=== PATIENT | female | born 1980 | race Caucasian/White ===

== ENCOUNTER 2020-01-13 08:49 | Emergency (ER) | payer OTHER, SELFPAY ==
[2020-01-13 08:59] VITALS: BP 103/66; PULSE 88; RESP 18; TEMP 37.2; O2SAT 100
--- NOTE | 2020-01-13 09:46 | ED.GENADULT ---
HPI - General Adult General Chief complaint: Unspecified <Jason Rose PA-C - Last Filed: 01/13/20 09:52> Stated complaint: generalized aches, sore throat <Jason Rose PA-C - Last Filed: 01/13/20 09:52> Time Seen by Provider: 01/13/20 09:09 <Jason Rose PA-C - Last Filed: 01/13/20 09:52> Source: patient <Jason Rose PA-C - Last Filed: 01/13/20 09:52> Mode of arrival: ambulatory <Jason Rose PA-C - Last Filed: 01/13/20 09:52> Limitations: no limitations <Jason Rose PA-C - Last Filed: 01/13/20 09:52> History of Present Illness HPI narrative: Patient is a 39-year-old female who presents to emergency department for evaluation of body aches sore throat rhinorrhea and congestion that began in the last 2 days 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 patient denies any vomiting diarrhea urinary symptoms or other complaints has not taken anything for her symptoms and presents in no distress <Jason Rose PA-C - Last Filed: 01/13/20 09:52> Related Data Home medications: Home Medications Medication Instructions Recorded Confirmed Daily Multivitamin 1 PO 10/29/19 <Jason Rose PA-C - Last Filed: 01/13/20 09:52> Allergies/adverse reactions: Allergies Allergy/AdvReac Type Severity Reaction Status Date / Time Penicillins Allergy Intermediate Rash Verified 01/13/20 09:06 <Jason Rose PA-C - Last Filed: 01/13/20 09:52> Review of Systems Review of Systems: All systems reviewed & are unremarkable except as noted in HPI and below <Jason Rose PA-C - Last Filed: 01/13/20 09:52> [facility] Surgical History Surgical History: Surgical History (Updated 01/13/20 @ 09:47 by Jason Rose PA-C) H/O hernia repair <LYUBOV Villa Last Filed: 01/13/20 09:52> Social History Social History: Social History Smoking status: Former smoker Second hand tobacco smoke exposure: No Smoking end date: 11/19/11 Alcohol intake: current <LYUBOV Villa Last Filed: 01/13/20 09:52> Exam Narrative: Exam Narrative: GENERAL: Well-appearing, well-nourished, and in no acute distress. HEAD: Normocephalic, atraumatic. EYES: PERRLA and EOMI. ENT: Nares clear, no rhinorrhea or epistaxis. Mucous membranes moist. Oropharynx with erythema and without tonsillar hypertrophy exudate or other lesions. Bilateral TMs pearly zelaya nonbulging NECK: Supple. No adenopathy or masses. CHEST: Clear to auscultation. No respiratory distress. No wheezes rales or rhonchi HEART: Regular rate and rhythm. No murmur heard. Normal peripheral pulses. ABDOMEN: Soft, nontender, nondistended EXTREMITIES: Normal range of motion. No edema. SKIN: Warm, dry, no rash. NEURO: No focal deficits. Alert and oriented x3. Cranial nerves II through XII grossly intact PSYCH: Normal mood and affect. <LYUBOV Villa Last Filed: 01/13/20 09:52> Course Course Emergency Course: Patient in the room in no distress aware of case findings treatment plan and diagnosis <LYUBOV Villa Last Filed: 01/13/20 09:52> Vital Signs Vital signs: Vital Signs Temperature 37.2 C 01/13/20 08:59 Pulse Rate 88 01/13/20 08:59 Respiratory Rate 18 01/13/20 08:59 Blood Pressure 103/66 01/13/20 08:59 Pulse Oximetry 100 01/13/20 08:59 Temperature 37.2 C 01/13/20 08:59 Pulse Rate 88 01/13/20 08:59 Respiratory Rate 18 01/13/20 08:59 Blood Pressure 103/66 01/13/20 08:59 Pulse Oximetry 100 01/13/20 08:59 <LYUBOV Villa Last Filed: 01/13/20 09:52> Vital Signs Temperature 37.2 C 01/13/20 08:59 Pulse Rate 88 01/13/20 08:59 Respiratory Rate 18 01/13/20 08:59 Blood Pressure 103/66 01/13/20 08:59 Pulse Oximetry 100 01/13/20 08:59 Temperature 37.2 C 01/13/20 08:59 Pulse Rate 88 12/21
[2020-01-13] MEDS: ACETAMINOPHEN 500 MG TABLET 1000 MG PO (10:10)
[2020-01-13] MEDS: IBUPROFEN 600 MG TABLET PO (10:11)
== END 2020-01-13 10:13 | disposition home or self-care (01) ==
PROVIDERS: Emergency Provider Emergency Medicine; PCP Emergency Medicine
DX: B34.9 Viral infection, unspecified (principal); Z87.891 Personal history of nicotine dependence
CPT/HCPCS: 87081; 87804; 87880; 99283; A9270

== ENCOUNTER 2020-02-27 16:46 | Emergency (ER) | payer OTHER, SELFPAY ==
--- NOTE | ~2020-02-27 | CT_ITS ---
EXAMINATION: CT abdomen pelvis w con DATE: 02/27/2020 19:31 INDICATION: Lower abdominal pain TECHNIQUE: Computed tomography (CT) of the abdomen and pelvis was performed with 100 cc Omnipaque 350 intravenous contrast. The dose-length product was 268.68 mGy-cm. Automated exposure control and iter ative reconstruction technique were employed. COMPARISON: None. FINDINGS: Lung bases are unremarkable. Heart size normal. No significant vascular abnormality. No lym phadenopathy. There are 2 hypovascular masses of the right hepatic lobe, superiormost measuring 7 mm in the larger located anteriorly and laterally measuring 1.6 cm. These are not compatible with simple cyst. The spleen, pancreas, adrenal glands and kidneys are unremarkable. Gallbladder is present. There is g astric wall prominence, although this may relate to underdistention. Nonobstructive bowel gas pattern . There is an IUD in the uterus. Moderate free fluid in the pelvis. No free intraperitoneal air. No s ignificant vascular abnormality. No lymphadenopathy. No acute osseous abnormality. IMPRESSION: 1. Gastric wall thickening which may be due to underdistention, although gastritis is considered in t he appropriate clinical setting. 2: Moderate free fluid in the pelvis, likely physiologic. No loculated abscess. 3: Hypovascular masses of the liver, largest measuring 1.6 cm, most likely benign complicated cyst or hemangioma in the absence of known malignancy. Consider follow-up correlation with MRI or a 6 month follow-up CT. Reviewed, dictated and finalized at location A. IMPRESSION: 1. Gastric wall thickening which may be due to underdistention, although gastri tis is considered in the appropriate clinical setting. 2: Moderate free fluid in the pelvis, likely physiologic. No loculated abscess . 3: Hypovascular masses of the liver, largest measuring 1.6 cm, most likely joy gn complicated cyst or hemangioma in the absence of known malignancy. Consider follow-up correlation with MRI or a 6 month follow-up CT.
--- NOTE | ~2020-02-27 | US_ITS ---
US right upper quadrant INDICATION: Abdominal pain PROCEDURE: Realtime right upper abdominal ultrasound. COMPARISON: No prior studies for comparison. FINDINGS: The pancreas is normal without focal mass or pancreatic ductal dilation. There is a hypere choic mass of the liver near the dome measuring 1.6 x 1.5 x 1.2 cm. There is normal directional flow in the portal vein. The gallbladder is normal without stones, gallbladder wall thickening or pericholecystic fluid. Comm on bile duct measures 4 mm. No sonographic Mace's sign. IMPRESSION: 1: 1.6 cm hyperechoic mass of the liver near the dome. In the absence of known malignancy this likely represents benign focal fatty infiltration or hemangioma. Recommend follow-up ultrasound in 6-12 mon ths to assess stability. Reviewed, dictated and finalized at location A. IMPRESSION: 1: 1.6 cm hyperechoic mass of the liver near the dome. In the absence of known malignancy this likely represents benign focal fatty infiltration or hemangioma . Recommend follow-up ultrasound in 6-12 months to assess stability.
--- NOTE | ~2020-02-27 | XR_ITS ---
XR thoracic spine 3V 02/27/2020 20:56 Indication: Back pain Procedure: 3 views thoracic spine Comparison: No prior studies for comparison. Findings: Mild levoscoliosis. Vertebral body heights are maintained. No paraspinal soft tissue abnorm ality. Surrounding osseous structures are within normal limits. No acute fracture or traumatic malali gnment. Pedicles intact. Impression: 1: Mild levoscoliosis. Reviewed, dictated and finalized at location A. Impression: 1: Mild levoscoliosis.
--- NOTE | ~2020-02-27 | XR_ITS ---
EXAMINATION: XR chest 1V 02/27/2020 20:56 INDICATION: Upper back pain PROCEDURE: AP view of the chest COMPARISON: 12/28/2018 FINDINGS: The lungs are clear. The cardiomediastinal silhouette is within normal limits. There are no pleural effusions. There is no pneumothorax suspected. IMPRESSION: 1: NO ACUTE CARDIOPULMONARY DISEASE. Reviewed, dictated and finalized at location A.
[2020-02-27 16:47] VITALS: BP 115/66; PULSE 60; RESP 20; O2SAT 100
--- NOTE | 2020-02-27 17:14 | ECG_ITS ---
Measurements Intervals Peterson Rate: 53 P: -3 CA: 131 QRS: 5 QRSD: 101 T: 62 QT: 431 QTc: 406 Interpretive Statements SINUS BRADYCARDIA RSR' IN V1 OR V2, CONSIDER RIGHT VENTRICULAR HYPERTROPHY OR RIGHT VCD LOW QRS VOLTAGE IN LIMB LEADS BASELINE WANDER- V4 BORDERLINE ECG Electronically Signed On 02-28-2020 7:44:38 CDT by Ras Rojas D.O.
--- NOTE | 2020-02-27 17:24 | ED.ABDPAIN ---
HPI - Abdominal Pain General Chief Complaint: Abdominal Pain Stated Complaint: abdominal pain Time Seen by Provider: 02/27/20 16:54 Source: patient Mode of arrival: ambulatory Limitations: no limitations History of Present Illness HPI narrative: 39 yo female who presents with c/o constant abdominal pain since midnight last night. She states she develop sharp pain to her upper abdomen and she reports her pain has been constant. She reports she now has diffuse abdominal pain. She is concerned it may be her gallbladder because she noticed intermittent pain to right upper abdomen 2 weeks ago. She states this pain was not associated with eating. She also denies nausea, vomiting, fever or diarrhea. She reports she had normal BM with out relief of her pain. She denies sob. Her PCP prescribed her omeprazole so she took it without relief of her pain. MD elicited complaint: abdominal pain Related Data Home Medications Medication Instructions Recorded Confirmed Daily Multivitamin 1 PO 10/29/19 Allergies Allergy/AdvReac Type Severity Reaction Status Date / Time Penicillins Allergy Intermediate Rash Verified 01/13/20 09:06 Review of Systems Review of Systems: All systems reviewed & are unremarkable except as noted in HPI and below Constitutional: Constitutional: Denies chills, Denies fever(s) and Denies weakness Cardiovascular: Cardiovascular: Denies chest pain Respiratory: Respiratory: Denies cough and Denies dyspnea Gastrointestinal: Gastrointestinal: Reports abdominal pain, Denies bloating, Denies constipation, Denies diarrhea, Denies nausea and Denies vomiting Musculoskeletal: Musculoskeletal: Reports back pain PMFSH Surgical History Surgical History (Updated 01/13/20 @ 09:47 by Jason Rose PA-C) H/O hernia repair Social History Social History Smoking status: Former smoker Second hand tobacco smoke exposure: No Smoking end date: 11/19/11 Alcohol intake: current Exam Narrative: Exam Narrative: GENERAL: Well-appearing, well-nourished, and in no acute distress. HEAD: Normocephalic, atraumatic EYES: PERRLA and EOMI, conjunctiva clear without discharge THROAT:Mucous membranes moist, Oropharynx normal without erythema, exudate, peritonsillar swelling or fluctuance NECK: Supple, without lymphadenopathy or mass RESPIRATORY: No respiratory distress, Airway patent, Respirations non-labored, Clear to auscultation without rales, rhonchi or wheeze HEART: Regular rate and rhythm. No murmur heard. Normal peripheral pulses. ABDOMEN: Soft, Diffuse tenderness , nondistended, normal active bowel sounds. No masses. No rebound or guarding, No organomegaly. EXTREMITIES: No edema, normal strength with full range of motion. SKIN: Warm, dry, normal color without rash NEURO: Alert and oriented x3. CN 2-12 grossly intact. No focal deficits. PSYCH: Normal mood and affect. Course Reevaluation(s) Reevaluation #1: Patient states pain is still the same. I have discussed labs are unremarkable. I Also discussed ultrasound showing normal gallbladder but liver mass that is likely benign. Date: 02/27/20 Time: 19:15 Reevaluation #2: I discussed with patient CT scan showing FF in pelvic that is physiologic which may be due to ruptured cyst. She has no anemia to suggest hemorrhage in peritoneum. Date: 02/27/20 Time: 20:19 Reevaluation #3: I Reviewed xray findings with patient as she asked for thoracic xray and chest xray due to mild pain thoracic pain for weeks just cover basis while her. Date: 02/27/20 Time: 21:18 Vital Signs Vital signs: Vital Signs Pulse Rate 60 02/27/20 16:47 Respiratory Rate 20 02/27/20 16:47 Blood Pressure 115/66 02/27/20 16:47 Pulse Oximetry 100 02/27/20 16:47 Pulse Rate 63 02/27/20 21:42 Respiratory Rate 18 02/27/20 21:42 Blood Pressure 115/73 02/27/20 21:42 Pulse Oximetry 100 02/27/20 21:42
[2020-02-27 17:34] LABS: Basophils Percent Auto 0.6 % (0.2-1.2); Eosinophils Absolute Auto 0.1 K/mm3 (0-0.3); Eosinophils Percent Auto 2.2 % (0-4.4); Hematocrit 42.6 % (37.0-47.0); Hemoglobin 14.4 g/dL (12.0-15.0); Immature Granulocyte Absolute 0.01 K/mm3 (0.00-0.031); Immature Granulocyte Percent A 0.2 % (0-0.5); Lymphocytes Absolute Auto 1.16 K/mm3 (0.9-3.2); Lymphocytes Percent Auto 18.3 % (18.3-44.2); Mean Corpuscular HGB Conc 33.8 g/dl (32-36); Mean Corpuscular Hemoglobin 31.5 pg (26-34); Mean Corpuscular Volume 93.2 fl (80-100); Monocytes Absolute Auto 0.5 K/mm3 (0.1-0.6); Monocytes Percent Auto 7.7 % (2.6-8.5); Neutrophils Absolute Auto 4.5 K/mm3 (1.3-6.7); Platelet Count Result 221 k/mm3 (150-375); Red Blood Count 4.57 M/mm3 (4.2-5.4); Red Cell Distribution Width 12.2 % (11.5-14.5); White Blood Count 6.4 K/mm3 (4.5-10.0)
[2020-02-27] MEDS: KETOROLAC 30 MG/ML VIAL (*BKC) IV PUSH (17:35)
[2020-02-27 17:37] LABS: Add Urine Microscopic? YES; Appearance Urine Clear (Clear); Bilirubin Urine Negative (Negative); Blood Urine 1+ (Negative); Color Urine Straw (Yellow); Glucose Urine UA Negative (Negative); Ketones Urine Negative (Negative); Leukocyte Esterase Ur Negative LEU/UL (Negative); Mucus Urine Rare /lpf; Nitrate Urine Negative (Negative); Protein Urine Negative (Negative); RBC Urine 0-2 /hpf (0-2); Specific Grav Ur 1.006 (1.001-1.035); Squamous Epithelial Cell Urine Rare /hpf (Few); Urobilinogen Urine Negative mg/dL (<2.0); WBC Urine 0-3 /hpf
[2020-02-27 17:49] LABS: Alanine Aminotransferase 14 U/L (4-35); Albumin Level 4.4 g/dL (3.5-5.1); Alkaline Phosphatase 66 U/L (38-126); Aspartate Amino Transferase 28 U/L (14-36); Bilirubin,Total 0.5 mg/dL (0.2-1.3); Blood Urea Nitrogen 8 mg/dL (7-17); Calcium 9.3 mg/dL (8.4-10.2); Carbon Dioxide 29 mmol/L (22-30); Chloride 104 mmol/L (98-107); Estimated CRCL calculation 93 ml/min; Estimated Glomerular Filt Rate > 60; Glucose 90 mg/dL (65-105); Lipase 58 U/L (23-300); Potassium 5.2 mmol/L (3.4-5.0); Sodium 138 mmol/L (137-145)
[2020-02-27] MEDS: HYDROMORPHONE HCL 1 MG/ML INJ IV PUSH (19:37)
[2020-02-27 19:57] VITALS: BP 103/64; PULSE 52; RESP 15; O2SAT 98
[2020-02-27 21:42] VITALS: BP 115/73; PULSE 63; RESP 18; O2SAT 100
== END 2020-02-27 21:43 | disposition home or self-care (01) ==
PROVIDERS: Emergency Provider General Practice; PCP Emergency Medicine
DX: R10.84 Generalized abdominal pain (principal); R18.8 Other ascites; Z87.891 Personal history of nicotine dependence; R00.1 Bradycardia, unspecified; R94.31 Abnormal electrocardiogram [ECG] [EKG]; R16.0 Hepatomegaly, not elsewhere classified; R93.5 Abnormal findings on diagnostic imaging of other abdominal regions, including retroperitoneum
CPT/HCPCS: 36415; 71045; 72072; 74177; 76705; 80053; 81001; 81025; 83690; 85025; 93005; 96374; 96375; 99284; J1170; J1885; Q9967

== ENCOUNTER 2020-03-05 08:50 | Outpatient (CLI) | payer OTHER, SELFPAY ==
--- NOTE | ~2020-03-05 | XR_ITS ---
EXAMINATION: XR chest 2V DATE: 03/05/2020 09:37 INDICATION: Upper middle back pain. TECHNIQUE: Frontal and lateral views of the chest were obtained. COMPARISON: Chest single view 02/27/2020, CT abdomen and pelvis 02/27/2020 FINDINGS: The chest demonstrates clear lungs without pneumonia, pleural effusion, or pneumothorax. Th e heart size is normal. IMPRESSION: 1. No acute cardiopulmonary disease. Reviewed, dictated and finalized at location A.
--- NOTE | ~2020-03-05 | XR_ITS ---
EXAMINATION: XR UGIAC wo kub DATE: 03/05/2020 09:36 INDICATION: Abdominal pain. Upper back pain. TECHNIQUE: The patient drank thick barium, gas-producing crystals, and thin barium. Fluoroscopy of th e esophagus, stomach, and proximal small bowel was performed. Fluoroscopy exposure time was 0.7 minut es. The total number of images was 275. Total dose-area product was 1.126 Gy-cm^2. COMPARISON: None. FINDINGS: There is no mass or stricture of the esophagus. Esophageal motility is normal. There is no hiatal hernia. There was no gastroesophageal reflux with provocative maneuvers. The stomach and proxi mal small bowel show normal folding patterns. IMPRESSION: 1. Normal upper gastrointestinal series. Reviewed, dictated and finalized at location A.
== END 2020-03-05 08:51 | disposition home or self-care (01) ==
LOC: ANHIMG 08:54
PROVIDERS: PCP Emergency Medicine; Visit Provider Emergency Medicine
DX: R10.9 Unspecified abdominal pain (principal)
CPT/HCPCS: 71046; 74246

== ENCOUNTER 2020-04-13 08:19 | Outpatient (CLI) | payer OTHER, SELFPAY ==
--- NOTE | ~2020-04-13 | NM_ITS ---
EXAMINATION: NM hepatobiliary w pharm DATE: 04/13/2020 11:34 INDICATION: Abdominal pain. COMPARISON: CT abdomen and pelvis 02/27/2020 TECHNIQUE: 5.1 mCi Tc-99m mebrofenin (Choletec) was administered intravenously. Scintigraphic images of the abdomen were obtained for one hour. Then, 1.3 mcg sincalide (Kinevac) IV was administered, an d imaging was continued for 30 minutes. FINDINGS: There is normal clearance of radiotracer from the blood pool. There is homogeneous tracer u ptake by the liver. Activity progresses to the bowel and gallbladder. Gallbladder ejection fraction (GBEF) was 72%. Note that most patients with gallbladder dysfunction have GBEF < 35%, which overlaps with the broad normal range of 10-90%. IMPRESSION: 1. Normal hepatobiliary scintigraphy. Reviewed, dictated and finalized at location A.
[2020-04-16 01:35] LABS: NIL 0.01 IU/mL; Quantiferon TB Plus, 1T NEGATIVE (NEGATIVE)
== END 2020-04-13 08:20 | disposition home or self-care (01) ==
PROVIDERS: PCP Emergency Medicine; Visit Provider Emergency Medicine
DX: R10.9 Unspecified abdominal pain (principal)
CPT/HCPCS: 36415; 78227; 86480; A9537; J2805

== ENCOUNTER 2020-11-24 19:48 | Emergency (ER) | payer OTHER, SELFPAY ==
--- NOTE | 2020-11-24 19:51 | ED.FEMALEGU ---
HPI - Female Genitourinary General Chief complaint: Urogenital-Female Stated complaint: uti Time Seen by Provider: 11/24/20 19:51 Source: patient and RN notes reviewed History of Present Illness HPI Narrative: Patient is a 40-year-old female who presents the urgent care with complaints of suprapubic pressure, urgency, frequency, slight blood in the urine, and dysuria. Patient states that it started 3 days ago, seemed to improve, and worsened this evening approximately 2 hours ago. Patient denies of any frequent history of UTIs. States that she has taken 1 dose of at 100 mg doxycycline which she typically takes for her rosacea. Denies of any low back pain, nausea, vomiting, fever, abdominal pain. No other acute complaints. No acute distress noted. Patient aware of the plan of care. Some parts of this dictation were generated by voice recognition software and may contain typographical and/or grammatical inaccuracies. Related Data Home Medications Medication Instructions Recorded Confirmed Daily Multivitamin 1 PO 10/29/19 Allergies Allergy/AdvReac Type Severity Reaction Status Date / Time Penicillins Allergy Intermediate Rash Verified 01/13/20 09:06 Review of Systems Review of Systems: Narrative: CONSTITUTIONAL: Denies fever, chills, or sweats. EYES: Denies visual changes, redness, or discharge. ENT: Denies rhinorrhea, congestion, sore throat, or otalgia. CARDIOVASCULAR: Denies chest pain, palpitations, or edema. RESPIRATORY: Denies cough or dyspnea. GASTROINTESTINAL: Reports a suprapubic pressure. denies abdominal pain, nausea, vomiting, or diarrhea. GENITOURINARY: Reports of dysuria and mild blood when wiping SKIN: Denies rash or itching. MUSCULOSKELETAL: Denies back pain, joint pain, or myalgia. NEUROLOGIC: Denies headache, numbness, or weakness. All other systems reviewed are negative, except as documented in HPI. [facility] Surgical History Surgical History (Updated 01/13/20 @ 09:47 by Jason Rose PA-C) H/O hernia repair Family History Family History Father Family history of lung cancer Social History Social History Smoking status: Former smoker Second hand tobacco smoke exposure: No Smoking end date: 11/19/11 Alcohol intake: current Comments At the time of my signature, I reviewed and agree with the nursing past medical, surgical, social, and family history. There is no relevant family history pertinent to the patient complaint. Exam Narrative: Exam Narrative: GENERAL: This is a well-nourished, well-developed patient, in no apparent distress. HEAD: normocephalic, atraumatic. EYES: PERRL. Sclera clear/white. Vision is grossly intact. EARS: External ears normal NOSE: External nose normal with no obvious nasal discharge, nares without redness, no rhinorrhea. THROAT: Mucous membranes moist NECK: Neck supple GASTROINTESTINAL: Abdomen soft, non-tender, nondistended. Bowel sounds are active. Very mild suprapubic tenderness SKIN: warm, intact with no suspicious lesions or rash, good texture and turgor. NEURO: awake, alert, and oriented to person, place and time. There were no obvious focal neurologic abnormalities. EXTREMITIES: No clubbing, cyanosis, or edema. BACK: Negative CVA tenderness Course Vital Signs Vital signs: Vital Signs Temperature 99.7 F H 11/24/20 19:57 Pulse Rate 78 11/24/20 19:57 Respiratory Rate 18 11/24/20 19:57 Blood Pressure 103/72 11/24/20 19:57 Pulse Oximetry 100 11/24/20 19:57 Temperature 99.7 F H 11/24/20 19:57 Pulse Rate 78 11/24/20 19:57 Respiratory Rate 18 11/24/20 19:57 Blood Pressure 103/72 11/24/20 19:57 Pulse Oximetry 100 11/24/20 19:57 Reviewed-patient is informed that they may have pre-hypertension or hypertension based on a blood pressure reading in the department. I recommend the patient call the primary care
[2020-11-24 19:57] VITALS: BP 103/72; PULSE 78; RESP 18; TEMP 37.6; O2SAT 100
== END 2020-11-24 20:13 | disposition home or self-care (01) ==
PROVIDERS: Emergency Provider Nurse Practitioner Family; PCP Emergency Medicine
DX: N39.0 Urinary tract infection, site not specified (principal); Z87.891 Personal history of nicotine dependence
CPT/HCPCS: 81003; 87077; 87086; 87088; 87186; 99213; G0463

== ENCOUNTER 2021-04-07 18:51 | Emergency (ER) | payer OTHER, SELFPAY ==
[2021-04-07 18:56] VITALS: BP 108/66; PULSE 74; RESP 15; TEMP 36.7; O2SAT 100
--- NOTE | 2021-04-07 19:46 | ED.GENADULT ---
HPI - General Adult General Chief complaint: Unspecified Stated complaint: Sore Throat Time Seen by Provider: 04/07/21 19:44 Source: patient Mode of arrival: ambulatory Limitations: no limitations History of Present Illness HPI narrative: Patient is a 40-year-old female complaining of sore throat x2 days. Patient states that it hurts to swallow. Patient denies any cough, nasal congestion, fever or chills. Denies any neck swelling. Denies any chest pain or shortness of breath. Related Data Home Medications Medication Instructions Recorded Confirmed doxycycline monohydrate 04/07/21 Allergies Allergy/AdvReac Type Severity Reaction Status Date / Time Penicillins Allergy Intermediate Rash Verified 01/13/20 09:06 Review of Systems Review of Systems: All systems reviewed & are unremarkable except as noted in HPI and below PMFSH Surgical History Surgical History H/O hernia repair Family History Family History Father Family history of lung cancer Social History Social History Smoking status: Former smoker Second hand tobacco smoke exposure: No Smoking end date: 11/19/11 Alcohol intake: current Gender identity (if verbalized by the patient): Female Comments Past medical history: None Family history: Lung CA Social history: Non-smoker, occasional EtOH use, no drug use Exam Const: General: cooperative, healthy appearing, comfortable, no acute distress, well developed, alert, awake and Physically active Limitations: no limitations HENMT: Head: normal to inspection, normocephalic and atraumatic Ears: hearing grossly normal bilaterally and external ears normal General nose exam: Normal external nose present, Normal nares present, Normal nasal mucous membranes and turbinates present, No nasal discharge present, no nasal discharge noted and no epistaxis Mouth: Yes Normal oral and palatal mucosa present and Yes lip normal Teeth and gingiva: dentition normal and gingiva normal Throat: no peritonsillar masses Other: Erythematous tonsillar and peritonsillar area, negative for exudates, negative for any significant swelling Course Vital Signs Vital signs: Vital Signs Temperature 36.7 C 04/07/21 18:56 Pulse Rate 74 04/07/21 18:56 Respiratory Rate 15 04/07/21 18:56 Blood Pressure 108/66 04/07/21 18:56 Pulse Oximetry 100 04/07/21 18:56 Temperature 36.7 C 04/07/21 18:56 Pulse Rate 74 04/07/21 18:56 Respiratory Rate 15 04/07/21 18:56 Blood Pressure 108/66 04/07/21 18:56 Pulse Oximetry 100 04/07/21 18:56 Medical Decision Making Vital Signs Vital Signs: Vital Signs Temperature 36.7 C 04/07/21 18:56 Pulse Rate 74 04/07/21 18:56 Respiratory Rate 15 04/07/21 18:56 Blood Pressure 108/66 04/07/21 18:56 Pulse Oximetry 100 04/07/21 18:56 Temperature 36.7 C 04/07/21 18:56 Pulse Rate 74 04/07/21 18:56 Respiratory Rate 15 04/07/21 18:56 Blood Pressure 108/66 04/07/21 18:56 Pulse Oximetry 100 04/07/21 18:56 Lab Data Lab results reviewed: Yes I reviewed the patient's lab results. Labs: Strep Screen Presumptive Negative *(Reference Range: Negative)* Discharge Plan Discharge Clinical Impression: Acute pharyngitis Qualifiers: Pharyngitis/tonsillitis etiology: other specified organisms Qualified Code(s): J02.8 - Acute pharyngitis due to other specified organisms Patient Disposition: Home, Self-Care Condition: Stable Instructions: Pharyngitis (ED) Prescriptions: No Action doxycycline monohydrate 100 mg tablet RF: 0 Follow-up/Referrals: Mesfin Lora MD [Primary Care Provider] - 04/11/21 Time of Disposition: 20:19
== END 2021-04-07 20:43 | disposition home or self-care (01) ==
PROVIDERS: Emergency Provider Emergency Medicine; PCP Emergency Medicine
DX: J02.8 Acute pharyngitis due to other specified organisms (principal); Z87.891 Personal history of nicotine dependence
CPT/HCPCS: 87081; 87880; 96372; 99283; J1100

== ENCOUNTER 2021-04-08 20:11 | Emergency (ER) | payer OTHER, SELFPAY ==
--- NOTE | ~2021-04-08 | CT_ITS ---
EXAMINATION: CT soft tissue neck w con DATE: 04/08/2021 22:40 INDICATION: Sore throat, possible tonsillar abscess TECHNIQUE: Computed tomography (CT) of the neck was performed with 75 cc of Omnipaque 350 intravenous contrast. The dose-length product (DLP) was 415.99 mGy-cm. Automated exposure control and iterative reconstruction technique were employed. COMPARISON: None FINDINGS: There is an approximately 1.7 x 1.3 cm x 2.7 cm right peritonsillar abscess. There is mild mass effect on the airway which remains patent. No pathologically enlarged cervical lymph nodes are i dentified. The visualized osseous structures are unremarkable. IMPRESSION: 1. 2.7 x 1.3 x 1.7 cm right peritonsillar abscess with mild mass effect on the airway. Reviewed, dictated and finalized at location A.
[2021-04-08 20:34] VITALS: BP 101/50; PULSE 76; RESP 18; TEMP 36.6; O2SAT 100
--- NOTE | 2021-04-08 21:48 | ED.URI ---
HPI - URI/Sore Throat General Chief Complaint: Upper Respiratory Infection Stated Complaint: pharyngitis Time Seen by Provider: 04/08/21 21:29 History of Present Illness HPI Narrative: SOre throat for the past 4 days. Seen here 2 days ago. Tested negative for strep. Got steroid shot. Improved that day, but now pain is worse and she some difficulty swallowing. No fever. She was previously on doxycycline for an unrelated cause. Related Data Home Medications Medication Instructions Recorded Confirmed doxycycline monohydrate 04/07/21 Allergies Allergy/AdvReac Type Severity Reaction Status Date / Time Penicillins Allergy Intermediate Rash Verified 01/13/20 09:06 Review of Systems Review of Systems: All systems reviewed & are unremarkable except as noted in HPI and below Constitutional: Constitutional: Denies fever(s) Eyes: Eyes: Reports no additional eye complaints ENT: Reports as per HPI, Denies dizziness and Reports sore throat Cardiovascular: Cardiovascular: Denies chest pain Respiratory: Respiratory: Denies dyspnea Gastrointestinal: Gastrointestinal: Denies abdominal pain, Denies nausea and Denies vomiting Musculoskeletal: Musculoskeletal: Denies back pain Neurologic: Reports system reviewed and no additional complaints, except as documented [facility] Past Medical History Medical History (Updated 04/09/21 @ 01:27 by Toñito Valerio MD) Hypothyroidism Surgical History Surgical History H/O hernia repair Family History Family History Father Family history of lung cancer Social History Social History Smoking status: Former smoker Second hand tobacco smoke exposure: No Smoking end date: 11/19/11 Alcohol intake: current Gender identity (if verbalized by the patient): Female Exam Const: General: healthy appearing, no acute distress and alert Orientation/consciousness: patient oriented x3 HENMT: Teeth and gingiva: dentition normal Throat: peritonsillar mass on the right fluctuant, posterior oropharynx abnormal edema and erythema; no exudates and uvula laterally displaced to the right Neck: Neck: lymphadenopathy Chest: Chest palpation & inspection: no tenderness Resp: Effort & Inspection: normal respiratory effort Auscultation: clear to auscultation bilaterally, no rales, no rhonchi and no wheezes Cardio: Jugular venous distension: no JVD Rate: regular rate Rhythm: regular rhythm Heart sounds: no murmurs Skin: General skin exam: normal color Neuro: General: patient oriented x3 and moves all extremities Speech: normal speech Gait exam (Neuro): Normal gait present Psych: Appearance: well kempt Affect: normal affect Course Vital Signs Vital signs: Vital Signs Temperature 36.6 C 04/08/21 20:34 Pulse Rate 76 04/08/21 20:34 Respiratory Rate 18 04/08/21 20:34 Blood Pressure 101/50 L 04/08/21 20:34 Pulse Oximetry 100 04/08/21 20:34 Temperature 36.6 C 04/08/21 20:34 Pulse Rate 69 04/09/21 00:59 Respiratory Rate 18 04/09/21 00:59 Blood Pressure 108/53 L 04/09/21 00:59 Pulse Oximetry 99 04/09/21 00:59 Procedures Abscess I/D oral: Side (if applicable): right Local Anesthetic: lidocaine 1% and other anesthetic (hurrican spray) Amount of anesthesia used (mL): 2 Technique: needle aspiration Amount of fluid expressed (mL): 2 Irrigation: No Packing used?: none I&D Results: Pus MDM - URI/Sore Throat MDM Narrative Medical decision making narrative: ENRICHMENT DIRECTOR on exam. Confirmed by CT drained without complication. Differential Diagnosis Differential diagnosis: Likely other Medical Records Attestation: I reviewed the patient's medical records. Lab Data Attestation: I reviewed the patient's lab results. Result diagrams: 03/20
[2021-04-08] MEDS: CLINDAMYCIN 600 MG/D5W 50 ML 600 MG/50 ML PIGGYBACK 100 MG IVPB (22:14)
[2021-04-08 22:23] LABS: Anion Gap 6 mmol/L (8-16); Blood Urea Nitrogen 12 mg/dL (7-17); Calcium 9.3 mg/dL (8.4-10.2); Carbon Dioxide 27 mmol/L (22-30); Chloride 101 mmol/L (98-107); Estimated CRCL calculation 92 ml/min; Estimated Glomerular Filt Rate > 60; Glucose 131 mg/dL (65-105); Potassium 4.5 mmol/L (3.4-5.0); Sodium 134 mmol/L (137-145)
[2021-04-08 23:59] LABS: Basophils Percent Auto 0.2 % (0.2-1.2); Eosinophils Absolute Auto 0.1 K/mm3 (0-0.3); Eosinophils Percent Auto 0.9 % (0-4.4); Hematocrit 36.7 % (37.0-47.0); Hemoglobin 12.1 g/dL (12.0-15.0); Immature Granulocyte Absolute 0.03 K/mm3 (0.00-0.031); Immature Granulocyte Percent A 0.3 % (0-0.5); Lymphocytes Absolute Auto 1.46 K/mm3 (0.9-3.2); Mean Corpuscular Hemoglobin 31.2 pg (26-34); Mean Corpuscular Volume 94.6 fl (80-100); Monocytes Absolute Auto 1.1 K/mm3 (0.1-0.6); Monocytes Percent Auto 9.9 % (2.6-8.5); Neutrophils Absolute Auto 8.5 K/mm3 (1.3-6.7); Neutrophils Percent Auto 75.7 % (45.5-73.1); Platelet Count Result 200 k/mm3 (150-375); Red Blood Count 3.88 M/mm3 (4.2-5.4); Red Cell Distribution Width 12.1 % (11.5-14.5); White Blood Count 11.3 K/mm3 (4.5-10.0)
[2021-04-09] MEDS: BENZOCAINE/TETRACAINE SPRAY (*SP) 56 ML AEROSOL 1 SPRAY MUCOUS MEM (00:31)
[2021-04-09] MEDS: LIDO 1%/EPINEPHRINE 1:100,000 20 ML VIAL INFILTRATE (00:34)
[2021-04-09 00:59] VITALS: BP 108/53; PULSE 69; RESP 18; O2SAT 99
== END 2021-04-09 01:01 | disposition home or self-care (01) ==
PROVIDERS: Emergency Provider Emergency Medicine; PCP Emergency Medicine
DX: J36 Peritonsillar abscess (principal); Z87.891 Personal history of nicotine dependence
CPT/HCPCS: 36415; 42700; 70491; 80048; 81025; 85025; 96365; 99284; A9270; Q9967

== ENCOUNTER 2021-04-09 08:55 | Emergency (ER) | payer OTHER, SELFPAY ==
[2021-04-09] VITALS (7 sets, daily range): BP systolic 95–109; BP diastolic 55–69; PULSE 55–86; RESP 16–20; TEMP 36.3; O2SAT 99–100
--- NOTE | ~2021-04-09 | CT_ITS ---
EXAMINATION: CT soft tissue neck w con DATE: 04/09/2021 12:15 INDICATION: Swelling in the throat TECHNIQUE: Computed tomography (CT) of the neck was performed with 75 mL Omnipaque-350 intravenous co ntrast. Automated exposure control and iterative reconstruction technique were employed. The dose-lindsay gth product was 379.06 mGy-cm. COMPARISON: 04/08/2021 FINDINGS: No significant interval change in a peripherally enhancing abscess within the right pharyngeal tonsil which measures 2.4 cm craniocaudally and 1.4 x 1.1 cm in maximal transaxial dimensions. Again seen i s mild mass effect upon the pharyngeal airway without significant stenosis. Normal epiglottis. The vi sualized portions of the bilateral upper lobes are clear. There are bilateral mildly prominent jugula r chain lymph nodes which are likely reactive. The cervical vasculature appears patent and unremarkab le. Orbits, paranasal sinuses and mastoid air cells are normal. Bones are unremarkable. IMPRESSION: 1. No significant interval change in a 2.4 x 1.4 x 1.1 cm right pharyngeal tonsillar abscess with mil d mass effect on the pharyngeal airway. Reviewed, dictated and finalized at location A. IMPRESSION: 1. No significant interval change in a 2.4 x 1.4 x 1.1 cm right pharyngeal tons illar abscess with mild mass effect on the pharyngeal airway.
[2021-04-09 11:02] LABS: Basophils Percent Auto 0.3 % (0.2-1.2); Eosinophils Absolute Auto 0.1 K/mm3 (0-0.3); Eosinophils Percent Auto 1.1 % (0-4.4); Hematocrit 38.3 % (37.0-47.0); Hemoglobin 12.8 g/dL (12.0-15.0); Immature Granulocyte Absolute 0.02 K/mm3 (0.00-0.031); Immature Granulocyte Percent A 0.3 % (0-0.5); Lymphocytes Absolute Auto 1.17 K/mm3 (0.9-3.2); Lymphocytes Percent Auto 15.8 % (18.3-44.2); Mean Corpuscular HGB Conc 33.4 g/dl (32-36); Mean Corpuscular Hemoglobin 31.6 pg (26-34); Mean Corpuscular Volume 94.6 fl (80-100); Mean Platelet Volume 11.4 fl (7.4-10.4); Monocytes Absolute Auto 0.9 K/mm3 (0.1-0.6); Monocytes Percent Auto 11.9 % (2.6-8.5); Neutrophils Absolute Auto 5.3 K/mm3 (1.3-6.7); Neutrophils Percent Auto 70.6 % (45.5-73.1); Platelet Count Result 188 k/mm3 (150-375); Red Blood Count 4.05 M/mm3 (4.2-5.4); Red Cell Distribution Width 12.2 % (11.5-14.5); White Blood Count 7.4 K/mm3 (4.5-10.0)
[2021-04-09] MEDS: DEXAMETHASONE SOD PHOS INJ 4 MG/ML VIAL 10 MG IV PUSH (11:02)
[2021-04-09] MEDS: IBUPROFEN IV 800 MG/200 ML 800 MG/200 ML BAG 400 MG IVPB (11:03)
[2021-04-09] MEDS: SODIUM CHLORIDE 0.9% IV 1,000 ML 999 ML IV CONT (11:03)
[2021-04-09 11:15] LABS: Anion Gap 2 mmol/L (8-16); Blood Urea Nitrogen 10 mg/dL (7-17); CRP 1.5 mg/dL (<1.0); Calcium 9.4 mg/dL (8.4-10.2); Carbon Dioxide 31 mmol/L (22-30); Chloride 108 mmol/L (98-107); Estimated CRCL calculation 92 ml/min; Estimated Glomerular Filt Rate > 60; Glucose 91 mg/dL (65-105); Potassium 4.9 mmol/L (3.4-5.0); Sodium 141 mmol/L (137-145)
[2021-04-09] MEDS: CLINDAMYCIN 900 MG/D5W 50 ML 900 MG/50 ML PIGGYBACK 50 MG IVPB (11:40)
[2021-04-09] MEDS: MORPHINE SULFATE (*CRX) 4 MG/ML INJ IV PUSH (11:40)
[2021-04-09] MEDS: LACTATED RINGERS 1,000 ML 999 ML IV CONT (13:28)
--- NOTE | 2021-04-09 14:37 | ED.GENADULT ---
HPI - General Adult General Chief complaint: Upper Respiratory Infection Stated complaint: sore throat Time Seen by Provider: 04/09/21 10:04 Source: patient, RN notes reviewed and old records reviewed Mode of arrival: ambulatory Limitations: no limitations History of Present Illness HPI narrative: Patient is a 40-year-old female who presented to emergency department for evaluation of continued throat pain and swelling patient was seen initially on Sunday diagnosed pharyngitis sent home return last night found to have abscess on the right side was drained was given IV clindamycin and then returned this morning noting that she felt like the swelling had recurred and she was having increasing pain with swallowing. Patient has not taken anything for pain or for her symptoms since she was seen last night. Patient denies fever chills nausea vomiting or other complaints on arrival patient does not appear distressed or uncomfortable Related Data Home Medications Medication Instructions Recorded Confirmed doxycycline monohydrate 50 mg PO BID 04/07/21 Allergies Allergy/AdvReac Type Severity Reaction Status Date / Time Penicillins Allergy Intermediate Rash Verified 04/09/21 09:10 Review of Systems Review of Systems: All systems reviewed & are unremarkable except as noted in HPI and below PMFSH Past Medical History Medical History Hypothyroidism Surgical History Surgical History H/O hernia repair Family History Family History Father Family history of lung cancer Social History Social History Smoking status: Former smoker Second hand tobacco smoke exposure: No Smoking end date: 11/19/11 Alcohol intake: current Gender identity (if verbalized by the patient): Female Exam Narrative: Exam Narrative: GENERAL: Well-appearing, well-nourished, and in no acute distress. HEAD: Normocephalic, atraumatic. EYES: PERRLA and EOMI. ENT: Nares clear, no rhinorrhea or epistaxis. Mucous membranes moist. Patient with right-sided peritonsillar swelling it is not past the midline there is edema of the uvula left side with minimal swelling, no deviation of the uvula. No trismus or drooling NECK: Supple. No adenopathy or masses. No stridor CHEST: Clear to auscultation. No respiratory distress. No wheezes rales or rhonchi HEART: Regular rate and rhythm. No murmur heard. Normal peripheral pulses. ABDOMEN: Soft, nontender, nondistended, normal active bowel sounds. EXTREMITIES: Normal range of motion. No edema. SKIN: Warm, dry, no rash. NEURO: No focal deficits. Alert and oriented x3. PSYCH: Normal mood and affect. Course Course Emergency Course: Patient was reevaluated in the emergency department was given medications with marked improvement to include fluids and steroids and IV antibiotics patient is aware of discussions and will follow with ENT on Sunday. The abscess was attempted to be redrained there was no purulent drainage. Patient will be sent home on a Medrol Dosepak to augment the medication she was given last night her picked up the prescriptions patient is afebrile nontoxic-appearing no distress ABCs and vital signs intact and stable Consultations Consultation #1: Discussed case with Dr. Zimmer who recommends following in clinic on Sunday with Dr. Jeevan Hanna would recommend placing the patient on a Medrol dose pack to augment her medications Date: 04/09/21 Vital Signs Vital signs: Vital Signs Temperature 97.3 F L 04/09/21 09:03 Pulse Rate 71 04/09/21 09:03 Respiratory Rate 16 04/09/21 09:03 Blood Pressure 104/64 04/09/21 09:03 Pulse Oximetry 100 04/09/21 09:03 Temperature 97.3 F L 04/09/21 09:03 Pulse Rate 55 L 04/09/21 14:15 Respiratory Rate 20 04/09/21 14:1
== END 2021-04-09 15:51 | disposition home or self-care (01) ==
PROVIDERS: Emergency Medicine Emergency Medical Services; Emergency Provider Emergency Medicine; PCP Emergency Medicine
DX: J36 Peritonsillar abscess (principal); E03.9 Hypothyroidism, unspecified; Z87.891 Personal history of nicotine dependence
CPT/HCPCS: 36415; 70491; 80048; 85025; 86140; 96365; 96367; 96375; 99284; A9270; J0131; J1100; J1741; J2270; J7030; J7120; Q9967

== ENCOUNTER 2021-04-24 07:51 | Outpatient (CLI) | payer OTHER, SELFPAY ==
--- NOTE | ~2021-04-24 | US_ITS ---
EXAMINATION: US abdomen complete EXAM DATE: 04/24/2021 08:27 INDICATION: Liver cyst follow up. TECHNIQUE: Multiple grayscale and Doppler images of the complete abdomen were obtained (by a technolo gist who performed the scan) and subsequently reviewed. Comparison is made to prior examination from 02/27/2020. FINDINGS: The abdominal aorta is normal in caliber. Visualized portion IVC is patent. The pancreatic head a nd body are normal in appearance. The pancreatic tail is not visualized. The liver has normal echogenicity and contour. Previously seen right liver lobe 1.6 cm hyperechoic l esion identified, size unchanged at 1.6 cm, consistent with benign histology. There is no evidence o f intrahepatic biliary duct dilation. Portal venous flow was seen in the hepatopedal, normal directi on and has normal Doppler waveform. Common bile duct measures 3 mm, which is normal. The gallbladder wall is normal in thickness, with ex pected amount of distention. No sonographic evidence of pericholecystic fluid. There is no cholelit hiases. Technologist performing exam reports patient did not demonstrate sonographic Mace's sign. Please note that this sign is less reliable in patients who have received pain medication. Right kidney: There is normal contour and echogenicity. It measures 10.5 x 5.4 x 3.7 centimeters. There are no focal renal lesions identified. There is no hydronephrosis. Left kidney: There is normal contour and echogenicity. It measures 10.5 x 5.7 x 5.2 centimeters. T here are no focal renal lesions identified. There is no hydronephrosis. The spleen measures 11.8 centimeters and is morphologically normal. IMPRESSION: 1. Right liver lobe lesion, size and appearance unchanged consistent with benign histology. Reviewed, dictated and finalized at location A. IMPRESSION: 1. Right liver lobe lesion, size and appearance unchanged consistent with joy gn histology.
== END 2021-04-24 07:52 | disposition home or self-care (01) ==
LOC: ANHIMG 07:52
PROVIDERS: PCP Emergency Medicine; Visit Provider Emergency Medicine
DX: K76.89 Other specified diseases of liver (principal)
CPT/HCPCS: 76700

== ENCOUNTER 2021-05-28 07:43 | Outpatient (CLI) | payer OTHER, SELFPAY ==
--- NOTE | ~2021-05-28 | MM_ITS ---
EXAMINATION: MM screening tejas BI w markos HISTORY: Screening mammogram TECHNIQUE: Craniocaudal and mediolateral oblique 3-D tomosynthesis images were obtained and synthetic 2-D images were generated. CAD analysis was submitted and interpreted. COMPARISON: 06/05/2018 BREAST PARENCHYMAL COMPOSITION: The breasts are heterogeneously dense, which may obscure small masses . FINDINGS: There is no evidence of suspicious mass, calcification, or architectural distortion to sugg est malignancy in either breast. There has been no suspicious interval change. IMPRESSION: 1. No mammographic evidence of malignancy. 2. Recommend routine screening mammography in one year. BI-RADS Category 1: Negative Reviewed, dictated and finalized at location A.
== END 2021-05-28 07:44 | disposition home or self-care (01) ==
LOC: ANHIMG 07:44
PROVIDERS: PCP Emergency Medicine; Visit Provider Obstetrics & Gynecology
DX: Z12.31 Encounter for screening mammogram for malignant neoplasm of breast (principal)
CPT/HCPCS: 77063; 77067

== ENCOUNTER 2021-06-15 08:55 | Outpatient (CLI) | payer OTHER, SELFPAY ==
--- NOTE | 2021-06-15 09:16 | ECG_ITS ---
Measurements Intervals [place] Rate: 49 P: 2 IA: 146 QRS: 22 QRSD: 105 T: 48 QT: 425 QTc: 386 Interpretive Statements SINUS BRADYCARDIA INCOMPLETE RIGHT BUNDLE BRANCH BLOCK ABNORMAL ECG Electronically Signed On 06-15-2021 9:29:19 CDT by Ras Rojas D.O.
== END 2021-06-15 08:56 | disposition home or self-care (01) ==
LOC: ANHCARD 08:59
PROVIDERS: PCP Emergency Medicine; Visit Provider Emergency Medicine
DX: R94.31 Abnormal electrocardiogram [ECG] [EKG] (principal); R00.1 Bradycardia, unspecified; I45.10 Unspecified right bundle-branch block
CPT/HCPCS: 93005

== ENCOUNTER 2021-08-03 00:12 | Emergency (ER) | payer OTHER, SELFPAY ==
--- NOTE | 2021-08-03 00:59 | PC.NURSE ---
Pt approached sales representative groceries and stated that she has her son at home alone and cannot not wait to see ED physician. States i didn't realized it would take this long . Pt educated on risks of leaving before seeing ED physician and benefits of staying, pt verbalized understanding. Pt ambulated out of ED with steady gait, in no obvious distress.
== END 2021-08-03 01:32 | disposition left against medical advice (07) ==
LOC: ANHED 01:16
PROVIDERS: PCP Emergency Medicine
DX: Z53.21 Procedure and treatment not carried out due to patient leaving prior to being seen by health care provider (principal)
CPT/HCPCS: 99199

== ENCOUNTER 2021-08-03 16:34 | Emergency (ER) | payer OTHER, SELFPAY ==
[2021-08-03 16:44] VITALS: BP 108/54; PULSE 60; RESP 18; TEMP 37; O2SAT 100
--- NOTE | 2021-08-03 17:11 | ED.FEMALEGU ---
HPI - Female Genitourinary General Chief complaint: Urogenital-Female Stated complaint: UTI Time Seen by Provider: 08/03/21 17:11 Source: patient Mode of arrival: ambulatory Limitations: no limitations History of Present Illness HPI Narrative: Sivan Cooper is a 41 to female with no PMH comes to [facility] with complaints of burning and pressure that started 2 days ago. She went to the emergency room last night but did not await for the number of patients ahead of her and came home and took a double dose of doxycycline that she takes for rosacea. She is here today for urine dip and treatment Related Data Home Medications Medication Instructions Recorded Confirmed doxycycline monohydrate 50 mg PO BID 04/07/21 08/03/21 Allergies Allergy/AdvReac Type Severity Reaction Status Date / Time Penicillins Allergy Severe Anaphylaxis Verified 08/03/21 16:58 Review of Systems Review of Systems: CONSTITUTIONAL: Denies fever, chills, sweats. EYES: Denies visual changes, redness, discharge. ENT: Denies rhinorrhea, congestion, sore throat, otalgia. CARDIOVASCULAR: Denies chest pain, palpitations, edema. RESPIRATORY: Denies dyspnea, wheezing, cough GASTROINTESTINAL: Denies abdominal pain, nausea, vomiting, diarrhea. GENITOURINARY: Has dysuria, no hematuria, abnormal discharge SKIN: Denies rash or itching. NEUROLOGIC: Denies numbness, or focal weakness. PSYCHIATRIC: Denies anxiety or depression. PMFSH Past Medical History Medical History Hypothyroidism Surgical History Surgical History H/O hernia repair Family History Family History Father Family history of lung cancer Sibling Lymphoma Social History Social History Smoking status: Former smoker Second hand tobacco smoke exposure: No Smoking end date: 11/19/11 Alcohol intake: current Gender identity (if verbalized by the patient): Female Exam Narrative: GENERAL: This is a well-nourished, well-developed patient, in mild distress. HEAD: normocephalic, atraumatic. EYES: Sclera clear/white. Vision is grossly intact. EARS: External ears normal. Hearing grossly intact. NOSE: External nose normal without nasal discharge, nares without redness, no rhinorrhea. THROAT: Mucous membranes moist, NECK: Neck supple, non-tender CARDIOVASCULAR: Regular rate and rhythm without murmurs, gallops, or rubs. RESPIRATORY: Clear to auscultation. Breath sounds equal bilaterally. No wheezes, rales, or rhonchi. GASTROINTESTINAL: Abdomen soft, non-tender, SKIN: warm, intact with no suspicious lesions or rash, good texture and turgor. NEURO: awake, alert, and oriented to person, place and time. There were no obvious focal neurologic abnormalities. Steady gait EXTREMITIES: Normal range of motion. BACK: Nontender without deformity Course Course Emergency Course: Patient comes here with burning and pressure x24 hours went to the ER last night but did not want to wait around and went home and took 200 mg of doxy UA is for trace leukocytes and 1+ blood Cipro 500 twice daily x3 days Vital Signs Vital signs: Vital Signs Temperature 98.6 F 08/03/21 16:44 Pulse Rate 60 08/03/21 16:44 Respiratory Rate 18 08/03/21 16:44 Blood Pressure 108/54 L 08/03/21 16:44 Pulse Oximetry 100 08/03/21 16:44 Temperature 98.6 F 08/03/21 16:44 Pulse Rate 60 08/03/21 16:44 Respiratory Rate 18 08/03/21 16:44 Blood Pressure 108/54 L 08/03/21 16:44 Pulse Oximetry 100 08/03/21 16:44 MDM - Female Genitourinary Differential Diagnosis Differential diagnosis: Likely urinary tract infection, bacterial vaginosis, trichomoniasis, cervicitis, cystitis and other Lab Data Labs: Urine Glucose Negative
== END 2021-08-03 17:20 | disposition home or self-care (01) ==
PROVIDERS: Emergency Provider Nurse Practitioner; PCP Emergency Medicine
DX: N30.90 Cystitis, unspecified without hematuria (principal); E03.9 Hypothyroidism, unspecified; Z87.891 Personal history of nicotine dependence
CPT/HCPCS: 81003; 87086; 99213; G0463

== ENCOUNTER → 2021-12-02 07:15 | Outpatient (CLI) | payer OTHER, SELFPAY ==
--- NOTE | 2021-12-05 13:09 | WPDHOMESLEEP ---
Sleep Study - Home Unattended Date of Study: 12/02/21 <Angelica Singh DO - Last Filed: 12/05/21 13:41> Ordering Provider: Ras Rojas DO <Angelica Singh, DO - Last Filed: 12/05/21 13:41> Interpreting Provider: Angelica Singh DO <Angelica Singh, DO - Last Filed: 12/05/21 13:41> Home Sleep Study Type: Apnea Link Air <Angelica Singh DO - Last Filed: 12/05/21 13:41> Height: 1.73 m <Angelica Singh DO - Last Filed: 12/05/21 13:41> Weight: 68.039 kg <Angelica Singh DO - Last Filed: 12/05/21 13:41> Body Mass Index: 22.8 <Angelica Singh DO - Last Filed: 12/05/21 13:41> Neck Circumference (inches): 13 <Angelica Singh DO - Last Filed: 12/05/21 13:41> [place]: 2 <Angelica Singh DO - Last Filed: 12/05/21 13:41> Reason for Sleep Study Hypersomnia <Angelica Singh DO - Last Filed: 12/05/21 13:41> Sleep History The patient is a 41-year-old female with hypothyroidism that had a home sleep test ordered by her food expeditor. 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 The patient states that she wakes up every night saying I didn't swallow it and sometimes describes the object as being large and trying to suffocate her. She is sometimes aware of this happening. She states that this happens 2-3 times per week. The patient frequently awakens from sleep short of breath. She denies awakening at night with heartburn, belching or cough. She rarely snores and it is never loud enough that others complain. She rarely has trouble sleeping when she has a cold. She constantly wakes up gasping for air throughout the night. She rarely has breathing problems at night observed by others. She constantly sweats excessively at night. She constantly notices heart palpitations or irregular heartbeats during the night. She denies falling asleep during the day and while driving. She denies sleep paralysis and cataplexy. She occasionally experiences vivid dreamlike scenes upon awakening from sleep. She rarely has trouble at school or work due to sleepiness. She rarely has nightmares. She remembers her dreams. She frequently has thoughts racing through her mind. She rarely feels sad or depressed. She occasionally has anxiety. She occasionally notices parts of her body jerk when she is falling asleep. She denies kicking during the night. She rarely has crawling and aching feelings in her legs as well as leg pain during the night. She rarely grinds her teeth during sleep and never awakens with morning jaw pain. She denies being bothered by pain during the day and being awakened by pain during the night. She a wakes up feeling stiff in the morning. She rarely wakes up with sore and achy muscles. He rarely wakes up with pain in the neck, spine or other joints. She goes to bed between 11:00 p.m. and midnight on both weekdays and weekends. She can fall asleep within 10-15 minutes. She typically does not wake up throughout the night. She wakes up at 6:00 a.m. on weekdays and between 8 and 9:00 a.m. on the weekends. She typically gets 4-5 hours of sleep per night. She will stay in bed for 10 minutes after waking up on the weekends. She currently lives with her and child. She denies consuming any caffeinated beverages within 2 hours of bedtime. She does not engage in physical exercise before bedtime. He does not read or watch television before falling asleep. She denies taking naps in the afternoon or the evening. She drinks 1-2 caffeinated beverage per day. She will drink 1-2 alcoholic beverages per week. She no longer smokes cigarettes. She denies recreational drug use. <Angelica Singh DO - Last Filed: 12/05/21 13:41> [facility] Past Medical History Medical History: Medical History Hypothyroidism <Angelica Singh, DO - Last Filed: 12/05/21 13:41> Surgical Hist
[2021-12-05 13:12] VITALS: BMI 22.8
== END ==
PROVIDERS: PCP Emergency Medicine; Visit Provider Internal Medicine Cardiovascular Disease
DX: G47.10 Hypersomnia, unspecified (principal); G47.9 Sleep disorder, unspecified
CPT/HCPCS: 95806

== ENCOUNTER 2022-03-31 07:54 | Outpatient (CLI) | payer OTHER, SELFPAY ==
--- NOTE | 2022-04-04 14:21 | WPDSLEEPSTUD ---
Sleep Study Date of Study: 03/31/22 Ordering Provider: Ras Rojas DO Interpreting Physician: Angelica Singh DO Sleep Study Type: Polysomnogram Height: 1.73 m Weight: 70.08 kg Body Mass Index: 23.4 Neck Circumference (inches): 14 [place]: 13 Reason for Sleep Study Persistent nightmares Sleep History The patient is a 41-year-old female with hypothyroidism that had a home sleep test ordered by her optoelectronic technician. 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 The patient states that she wakes up every night saying I didn't swallow it and sometimes describes the object as being large and trying to suffocate her. She is sometimes aware of this happening. She states that this happens 2-3 times per week. The patient frequently awakens from sleep short of breath. She denies awakening at night with heartburn, belching or cough. She rarely snores and it is never loud enough that others complain. She rarely has trouble sleeping when she has a cold. She constantly wakes up gasping for air throughout the night. She rarely has breathing problems at night observed by others. She constantly sweats excessively at night. She constantly notices heart palpitations or irregular heartbeats during the night. She denies falling asleep during the day and while driving. She denies sleep paralysis and cataplexy. She occasionally experiences vivid dreamlike scenes upon awakening from sleep. She rarely has trouble at school or work due to sleepiness. She rarely has nightmares. She remembers her dreams. She frequently has thoughts racing through her mind. She rarely feels sad or depressed. She occasionally has anxiety. She occasionally notices parts of her body jerk when she is falling asleep. She denies kicking during the night. She rarely has crawling and aching feelings in her legs as well as leg pain during the night. She rarely grinds her teeth during sleep and never awakens with morning jaw pain. She denies being bothered by pain during the day and being awakened by pain during the night. She a wakes up feeling stiff in the morning. She rarely wakes up with sore and achy muscles. He rarely wakes up with pain in the neck, spine or other joints. She goes to bed between 11:00 p.m. and midnight on both weekdays and weekends. She can fall asleep within 10-15 minutes. She typically does not wake up throughout the night. She wakes up at 6:00 a.m. on weekdays and between 8 and 9:00 a.m. on the weekends. She typically gets 4-5 hours of sleep per night. She will stay in bed for 10 minutes after waking up on the weekends. She currently lives with her and child. She denies consuming any caffeinated beverages within 2 hours of bedtime. She does not engage in physical exercise before bedtime. He does not read or watch television before falling asleep. She denies taking naps in the afternoon or the evening. She drinks 1-2 caffeinated beverage per day. She will drink 1-2 alcoholic beverages per week. She no longer smokes cigarettes. She denies recreational drug use. [facility] Past Medical History Medical History Hypothyroidism Surgical History Surgical History H/O hernia repair Family History Family History Father Family history of lung cancer Sibling Lymphoma Social History Social History Smoking status: Never smoker Second hand tobacco smoke exposure: No Smoking end date: 11/19/11 Alcohol intake: current Gender identity (if verbalized by the patient): Female Medications Home Medications Medication Instructions Recorded Confirmed Type doxycycline monohydrate 50 mg PO BID 04/07/21 01/31/22 History Sleep Procedure This test was performed using the [employer] including EOG, EEG,
[2022-04-04 17:24] VITALS: BMI 23.4
== END 2022-04-01 06:13 | disposition home or self-care (01) ==
LOC: ANHCSM 07:55
PROVIDERS: PCP Emergency Medicine; Visit Provider Internal Medicine Cardiovascular Disease
DX: G47.9 Sleep disorder, unspecified (principal)
CPT/HCPCS: 95810

== ENCOUNTER 2022-05-01 16:18 | Outpatient (CLI) | payer OTHER, SELFPAY ==
--- NOTE | ~2022-05-01 | US_ITS ---
EXAMINATION: US thyroid DATE: 05/01/2022 16:56 INDICATION: Hypothyroidism. TECHNIQUE: Multiple ultrasound images of the thyroid were obtained. COMPARISON: CT neck 04/09/2021 FINDINGS: The right thyroid lobe measures 5.4 x 1.4 x 1.4 cm. The left thyroid lobe measures 5.0 x 1.6 x 1.6 c m. There is normal echotexture and echogenicity throughout the thyroid gland. No discrete nodules id entified. Normal vascular flow is present. IMPRESSION: 1. Normal thyroid. Reviewed, dictated and finalized at location B. IMPRESSION: 1. Normal thyroid.
== END 2022-05-01 16:19 | disposition home or self-care (01) ==
PROVIDERS: PCP Emergency Medicine; Visit Provider Emergency Medicine
DX: E03.9 Hypothyroidism, unspecified (principal)
CPT/HCPCS: 76536

== ENCOUNTER 2022-05-29 00:45 | Day surgery (SDC) | payer OTHER, SELFPAY ==
[2022-05-12 14:00] VITALS: BMI 22.8
--- NOTE | 2022-05-29 10:21 | P.PNAN_ITS ---
Anes - Initial Pre Proc Eval Procedure: Operation Date: 05/29/22 13:45 Proposed Procedures p Esophagogastroduodenoscopy - Jordan Conrad MD Date/Time: 05/29/22 10:21 Surgeon: Jordan Conrad MD Pre Op Diagnosis: dysphagia Patient Data Age: 41 Gender: F Height: 1.73 m Weight: 68.1 kg Allergies Allergy/AdvReac Type Severity Reaction Status Date / Time Penicillins Allergy Severe Anaphylaxis Verified 05/29/22 12:47 Home Medications Medication Instructions Recorded Confirmed Type doxycycline monohydrate 100 mg 50 mg PO DAILY 04/28/22 05/12/22 History tablet omeprazole 40 mg capsule,delayed 40 mg PO DAILY #30 caps 04/28/22 05/12/22 Rx release Patient hx anesthesia problems: none Family hx anesthesia problems: none Results Review: All pre-operative results and documents have been reviewed as part of the pre- operative evaluation. PMFSH Past Medical History Medical History Hypothyroidism Surgical History Surgical History H/O hernia repair Family History Family History Father Family history of lung cancer Sibling Lymphoma Social History Social History Smoking packs per day: 1 Smoking cigarettes per day: 20.0 Years smoked: 20 Smoking pack-years: 20.00 Smoking status: Former smoker Tobacco type: cigarettes Second hand tobacco smoke exposure: No Smoking end date: 11/19/11 Alcohol intake: current Substance use type: does not use Gender identity (if verbalized by the patient): Female Anes - Eval Final PreProcedure Day of Procedure 05/29/22 10:21 Patient weight: normal Heart: regular rate and rhythm Lungs: clear to auscultation Airway: Mallampati scale class II Neurological: alert and oriented Last oral intake: >/= 8 hours ASA classification: II Emergent: no Anesthetic plan: proceed Anesthesia type and monitoring: general GIVS and standard monitoring Results Review: All pre-operative results and documents have been reviewed as part of the pre-operative evaluation. Informed Consent: The patient's anesthetic plan and its attendant risks and benefits were discussed with the patient/family/POA. Questions were solicited and answers provided to the satisfaction of the patient/family/POA.
[2022-05-29 12:49] VITALS: BP 104/65; PULSE 63; RESP 17; TEMP 36.4; O2SAT 100
--- NOTE | 2022-05-29 12:51 | PM.HPGS ---
History of Present Illness History of Present Illness Consent: Risks, benefits, and alternatives have been discussed and questions answered. Patient agrees to proceed with procedure. Chief complaint: dysphagia Narrative: Sivan Cooper is a 41 year old female with complaints of sudden waking in the middle of night, feels like her throat is closing up and can not breathe . ? States her sleep study was normal. States symptoms the last several minutes in the back to sleep. ? States symptoms have been nightly, this is been going on for approximately 2 year.? she reports during the day she will have a similar symptoms approximately once or twice a week.? states during the day symptoms seems to be worse when she is trying to swallow pills,? States she will have to swallow hard to get pill go down. ? Reports sensation high in neck area. ? She denies any dysphagia or odynophagia to foods or liquids.? Review of Systems Review of Systems: All systems reviewed & are unremarkable except as noted in HPI and below PMFSH Past Medical History Medical History Hypothyroidism Surgical History Surgical History H/O hernia repair Family History Family History Father Family history of lung cancer Sibling Lymphoma Social History Social History Smoking packs per day: 1 Smoking cigarettes per day: 20.0 Years smoked: 20 Smoking pack-years: 20.00 Smoking status: Former smoker Tobacco type: cigarettes Second hand tobacco smoke exposure: No Smoking end date: 11/19/11 Alcohol intake: current Substance use type: does not use Gender identity (if verbalized by the patient): Female Meds Home Medications and Allergies Home Medications Medication Instructions Recorded Confirmed Type doxycycline monohydrate 100 mg 50 mg PO DAILY 04/28/22 05/12/22 History tablet omeprazole 40 mg capsule,delayed 40 mg PO DAILY #30 caps 04/28/22 05/12/22 Rx release Allergies Allergy/AdvReac Type Severity Reaction Status Date / Time Penicillins Allergy Severe Anaphylaxis Verified 05/29/22 12:47 Vital Signs Vital Signs - 24 hr 05/29/22 12:49 Temperature 36.4 C Pulse Rate 63 Respiratory Rate 17 Blood Pressure 104/65 Pulse Oximetry 100 Oxygen Delivery Room Air Exam Const: General: alert Orientation/consciousness: patient oriented x3 Resp: Auscultation: clear to auscultation bilaterally Cardio: Rhythm: regular rhythm GI: GI Palp: Yes Soft to palpation and No Tenderness to palpation present (GI) Neuro: General: patient oriented x3 Assessment and Plan Assessment and plan (1) GERD (gastroesophageal reflux disease): Code(s): K21.9 - Gastro-esophageal reflux disease without esophagitis Status: Acute Assessment and Plan: EGD with possible biopsy or dilatation or cautery.
[2022-05-29] MEDS: LACTATED RINGERS 1,000 ML 150 ML IV CONT (12:58)
[2022-05-29 13:29] VITALS: BP 103/63; PULSE 73; RESP 20; O2SAT 100
[2022-05-29 13:39] VITALS: BP 97/55; PULSE 65; RESP 20; O2SAT 100
[2022-05-29 13:49] VITALS: BP 108/51; PULSE 67; RESP 24; O2SAT 100
--- NOTE | 2022-05-29 14:15 | SUR.PHASEII ---
Patients discharge was pending urination post operation. Patient was able to urinate and discharged from GI to home.
== END 2022-05-29 13:52 | disposition home or self-care (01) ==
PROVIDERS: PCP Emergency Medicine; Visit Provider Internal Medicine Gastroenterology
PROC: 0DJ08ZZ Inspection of Upper Intestinal Tract, Via Natural or Artificial Opening Endoscopic (ICD-10-PCS; CPT 43235; principal; 2022-05-29 13:45)
DX: K21.9 Gastro-esophageal reflux disease without esophagitis (principal); R13.13 Dysphagia, pharyngeal phase; Z87.891 Personal history of nicotine dependence
CPT/HCPCS: 43239; 87081; J2704; J7120

== ENCOUNTER 2022-06-15 07:52 | Outpatient (CLI) | payer OTHER, SELFPAY ==
--- NOTE | ~2022-06-15 | MM_ITS ---
EXAMINATION: MM screening tejas BI w markos HISTORY: Screening mammogram TECHNIQUE: Craniocaudal and mediolateral oblique 3-D tomosynthesis images were obtained and synthetic 2-D images were generated. CAD analysis was submitted and interpreted. COMPARISON: 05/28/2021 bilateral screening mammogram 06/05/2018 bilateral diagnostic mammography and Limited bilateral breast ultrasound examination BREAST PARENCHYMAL COMPOSITION: The breasts are heterogeneously dense, which may obscure small masses . FINDINGS: There is no evidence of suspicious mass, calcification, or architectural distortion to sugg est malignancy in either breast. There has been no suspicious interval change. IMPRESSION: 1. No mammographic evidence of malignancy. 2. Recommend routine screening mammography in one year. BI-RADS Category 1: Negative Reviewed, dictated and finalized at location A.
== END 2022-06-15 07:53 | disposition home or self-care (01) ==
LOC: ANHIMG 07:53
PROVIDERS: PCP Emergency Medicine; Visit Provider Obstetrics & Gynecology
DX: Z12.31 Encounter for screening mammogram for malignant neoplasm of breast (principal)
CPT/HCPCS: 77063; 77067

== ENCOUNTER 2022-08-31 10:21 | Emergency (ER) | payer OTHER, SELFPAY ==
[2022-08-31 10:29] VITALS: BP 107/61; PULSE 60; RESP 16; TEMP 36.6; O2SAT 100
--- NOTE | 2022-08-31 13:39 | ED.GENADULT ---
HPI - General Adult General Chief complaint: Urogenital-Female Stated complaint: Possible UTI Time Seen by Provider: 08/31/22 10:22 History of Present Illness HPI narrative: 42 y/o female. PMHx GERD, JOAO. Presents to [facility] [place] with acute complaints of urinary frequency, dysuria, and suprapubic 'pressure' for the past 1-2 days respectively. Client reports a history of UTI, noting that her manifestations are very similar to historical urinary tract infections. -No fevers, chills. -No gross abdominal pain, N/V. -Denies flank pain, vaginal discharge, hematuria. She has used home OTC remedies with sub-therapeutic response. No additional acute c/o upon PE. Related Data Allergies Allergy/AdvReac Type Severity Reaction Status Date / Time Penicillins Allergy Severe Anaphylaxis Verified 08/31/22 10:23 Review of Systems Review of Systems: CONSTITUTIONAL: Denies fever, chills, sweats. GASTROINTESTINAL: Denies abdominal pain, nausea, vomiting, diarrhea. GENITOURINARY: + Dysuria, frequency, pressure. No hematuria, abnormal discharge Remainder of ROS has been reviewed: Negative. PMFSH Past Medical History Medical History Hypothyroidism Surgical History Surgical History H/O hernia repair Family History Family History Father Family history of lung cancer Sibling Lymphoma Social History Social History Smoking packs per day: 1 Smoking cigarettes per day: 20.0 Years smoked: 20 Smoking pack-years: 20.00 Smoking status: Former smoker Tobacco type: cigarettes Second hand tobacco smoke exposure: No Smoking end date: 11/19/11 Alcohol intake: current Substance use type: does not use Gender identity (if verbalized by the patient): Female Exam Narrative: GENERAL: This is a well-nourished, well-developed adult, in no apparent distress. NECK: Neck supple. CARDIOVASCULAR: Regular rate and rhythm. RESPIRATORY: Clear to auscultation. GASTROINTESTINAL: Abdomen soft, non-tender, nondistended. Bowel sounds are active. No guarding. No CVA tenderness. SKIN: warm, intact. NEURO: Alert and age appropriate. Course Course Level of Care: Express Care Visit Vital Signs Vital signs: Vital Signs Temperature 36.6 C 08/31/22 10:29 Pulse Rate 60 08/31/22 10:29 Respiratory Rate 16 08/31/22 10:29 Blood Pressure 107/61 08/31/22 10:29 Pulse Oximetry 100 08/31/22 10:29 Oxygen Delivery Room Air 08/31/22 10:29 Temperature 36.6 C 08/31/22 10:29 Pulse Rate 60 08/31/22 10:29 Respiratory Rate 16 08/31/22 10:29 Blood Pressure 107/61 08/31/22 10:29 Pulse Oximetry 100 08/31/22 10:29 Oxygen Delivery Room Air 08/31/22 10:29 Medical Decision Making MDM Narrative Medical decision making narrative: -Urinalysis: + Leukocytes & RBCs. -Afebrile, non-tachycardic, appears otherwise non-toxic. -UTI/Cystits: Will cover w/OP CIPRO regimen, and send for additional CX analysis. -Diflucan prn. -Resume additional OTC remedies as needed. -PCP F/U 1WK. -ER W/Emergent health status changes. Pt agrees. Differential Diagnosis Differential Diagnosis: Differential Diagnosis: Consideration of the following conditions may be warranted for the presenting problem, they are not final diagnoses: Likely UTI, Cystitis, Nephrolithiasis, bacterial vaginosis, Nephritis, candidiasis, vaginitis, pyelonephritis, Venereal Disease, or other. Vital Signs Vital Signs: Vital Signs Temperature 36.6 C 08/31/22 10:29 Pulse Rate 60 08/31/22 10:29 Respiratory Rate 16 08/31/22 10:29 Blood Pressure 107/61 08/31/22 10:29 Pulse Oximetry 100 08/31/22 10:29 Oxygen Delivery Room Air 08/31/22 10:29 Temperature 36.6 C 08/31/22 10:29 Pulse Rate
== END 2022-08-31 11:40 | disposition home or self-care (01) ==
PROVIDERS: Emergency Provider Nurse Practitioner Adult Health; PCP Emergency Medicine
DX: N30.90 Cystitis, unspecified without hematuria (principal); Z87.891 Personal history of nicotine dependence; E03.9 Hypothyroidism, unspecified; K21.9 Gastro-esophageal reflux disease without esophagitis
CPT/HCPCS: 81003; 87077; 87086; 87186; 99213; G0463

== ENCOUNTER 2023-02-10 13:59 | Emergency (ER) | payer OTHER, SELFPAY ==
--- NOTE | ~2023-02-10 | XR_ITS ---
EXAMINATION: XR chest 2V DATE: 02/10/2023 14:20 INDICATION: Cough and shortness of breath TECHNIQUE: PA and lateral views of the chest are obtained. COMPARISON: 03/05/2020 FINDINGS: The lungs are free of acute opacities. No pleural effusion or pneumothorax. The cardiomedia stinal silhouette is normal. The visualized bones and soft tissues are unremarkable. IMPRESSION: 1. No acute cardiopulmonary abnormality. Reviewed, dictated and finalized at location A.
[2023-02-10 14:23] VITALS: BP 119/54; PULSE 74; RESP 16; TEMP 36.6; O2SAT 100
[2023-02-10 15:15] VITALS: O2SAT 98
[2023-02-10 15:38] LABS: Influenza A QL RT-PCR Negative (Negative); Influenza B QL RT-PCR Negative (Negative); SARS-CoV-2 RNA PCR Positive
--- NOTE | 2023-02-10 15:45 | ED.URI ---
HPI - URI/Sore Throat General Chief Complaint: Upper Respiratory Infection Stated Complaint: lungs hurt Time Seen by Provider: 02/10/23 14:04 History of Present Illness HPI Narrative: 42-year-old female presents emergency room for evaluation of pain to her back and chest when she breathes. Patient states that she has been experiencing some increased fatigue and a productive cough for the last 4 to 5 days. Denies fever chest pains. Related Data Allergies Allergy/AdvReac Type Severity Reaction Status Date / Time Penicillins Allergy Severe Anaphylaxis Verified 02/10/23 14:00 Review of Systems Review of Systems: CONSTITUTIONAL: Denies fever, chills, or sweats. EYES: Denies visual changes, redness, or discharge. ENT: Denies rhinorrhea, congestion, sore throat, or otalgia. CARDIOVASCULAR: Denies chest pain, palpitations, or edema. RESPIRATORY: Reports cough GASTROINTESTINAL: Denies abdominal pain, nausea, vomiting, or diarrhea. GENITOURINARY: Denies dysuria or hematuria. SKIN: Denies rash or itching. MUSCULOSKELETAL: Denies back pain, joint pain, or myalgia. NEUROLOGIC: Denies headache, numbness, dizziness, or weakness. PSYCHIATRIC: Denies anxiety or depression. PMFSH Past Medical History Medical History Hypothyroidism Surgical History Surgical History H/O hernia repair Family History Family History Father Family history of lung cancer Sibling Lymphoma Social History Social History Smoking packs per day: 1 Smoking cigarettes per day: 20.0 Years smoked: 20 Smoking pack-years: 20.00 Smoking status: Former smoker Tobacco type: cigarettes Second hand tobacco smoke exposure: No Smoking end date: 11/19/11 Alcohol intake: current Substance use type: does not use Gender identity (if verbalized by the patient): Female Exam Narrative: GENERAL: Well-appearing, well-nourished, no physical limitations, and in no acute distress. HEAD: Normocephalic, atraumatic. EYES: Conjunctivae normal, PERRLA and EOMI. CHEST: Clear to auscultation. No respiratory distress. No wheezes rales or rhonchi. HEART: Regular rate and rhythm. No murmur heard. Normal peripheral pulses. BACK: No CVA tenderness; No cervical/thoracic/lumbar tenderness, step-offs, bony abnormality; FROM EXTREMITIES: Normal range of motion. No edema. No clubbing or cyanosis SKIN: Warm, dry, no rash. No noted wounds NEURO: No focal deficits. Alert and oriented x3. MAEW. CN's II-XI intact bilaterally, normal gait PSYCH: Cooperative. Normal mood and affect. Course Vital Signs Vital signs: Vital Signs Temperature 36.6 C 02/10/23 14:23 Pulse Rate 74 02/10/23 14:23 Respiratory Rate 16 02/10/23 14:23 Blood Pressure 119/54 L 02/10/23 14:23 Pulse Oximetry 100 02/10/23 14:23 Temperature 36.6 C 02/10/23 14:23 Pulse Rate 74 02/10/23 14:23 Respiratory Rate 16 02/10/23 14:23 Blood Pressure 119/54 L 02/10/23 14:23 Pulse Oximetry 98 02/10/23 15:15 Oxygen Delivery Room Air 02/10/23 15:15 MDM - URI/Sore Throat Lab Data Labs: Lab Results 02/10/23 Range/Units 14:58 Influenza A (RT-PCR) Negative (Negative) Influenza B (RT-PCR) Negative (Negative) SARS-CoV-2 RNA (RT-PCR) Positive A Discharge Plan Discharge Clinical Impression: Cough, COVID Patient Disposition: Home, Self-Care Condition: Stable Instructions: Antibiotic Form, COVID-19 (Coronavirus Disease 2019) (ED) Prescriptions: No Action ciprofloxacin HCl [Cipro] 500 mg tablet 500 mg PO Q12H 7 Days Qty: 14 0RF fluconazole [Diflucan] 150 mg tablet 150 mg PO Q72H PRN (Reason: itching) Qty: 3 0RF Rx Instructions: as a single dose ferrous sulfate 325 mg (65 mg iron) tablet,delayed
== END 2023-02-10 15:55 | disposition home or self-care (01) ==
PROVIDERS: Emergency Provider Nurse Practitioner Family; PCP Emergency Medicine
DX: U07.1 COVID-19 (principal); R05.9 Cough, unspecified; E03.9 Hypothyroidism, unspecified; Z87.891 Personal history of nicotine dependence
CPT/HCPCS: 71046; 87636; 99283

== ENCOUNTER 2023-04-17 09:52 | Outpatient (CLI) | payer OTHER, SELFPAY ==
--- NOTE | ~2023-04-17 | XR_ITS ---
AP view of the pelvis and AP and lateral views of the bilateral hips Clinical history: Pain Findings: No acute fracture or dislocation is seen. Osseous alignment is anatomic. Bilateral hip and SI joint spaces are preserved. IUD in place. Soft tissues are otherwise unremarkable. Impression: No significant abnormality is seen. Reviewed, dictated and finalized at location . Impression: No significant abnormality is seen.
== END 2023-04-17 09:53 | disposition home or self-care (01) ==
PROVIDERS: PCP Emergency Medicine; Visit Provider Emergency Medicine
DX: M25.551 Pain in right hip (principal)
CPT/HCPCS: 73521

== ENCOUNTER 2023-05-24 10:00 | Outpatient (RCR) | payer OTHER, SELFPAY ==
--- NOTE | 2023-04-26 16:13 | PTOPEVAL1 ---
Assessment and note entered by Fina Luong, PT Evaluation Information Assessment Status Evaluation Diagnosis hip pain Onset 1 year ago Subjective Information Patient reports pain currently 5/10 in R hip which is constant. 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 Pain was reported as gradual onset about 1 year ago. Patient reports walking is very uncomfortable and she self limits daily chores, goal is to decrease pain in order to perform daily tasks. Patient reports ortho says there may be a tear however they wish to try conservative route of physical therapy first. Reported Pain Level Pain Score 5: Self Report Assessment PT Clinical Summary Patient is 42 year old female who presents with R hip pain and diagnosis of IT band syndrome, R hip impingement. Ortho provided non operative labral tear protocol. educated to avoid rotation of RLE, to avoid sidelying without pillow. Patient presents with R hip weakness, tight quadriceps, and pain causing impairments in patients ability to ambulate in community and preform daily tasks in home. Recommending skilled PT 2x/wk for 4 weeks to improve RLE strength, improve muscle length, and decrease pain in order to improve mobility in community and home Plan of Care Interventions Aquatic Therapy,Electrical Stimulation,Gait Training,Hot Pack/Cold Pack,Manual Therapy,Neuro Re-education,Patient/Caregiver Education,Therapeutic Activities,Therapeutic Exercise,Ultrasound Other Interventions IASTM, cupping, taping PT Services Indicated Yes Treatment Frequency and 2/wk for 4 wks Duration These treatments will address the objective and functional deficits as defined above. The patient will be advanced safely and appropriately in order for the patient to progress towards his/her prior level of function. Additional exercises will be introduced and as well as a comprehensive home exercise program upon discharge, if needed, ?to ensure carryover of functional gains achieved in the clinic. This treatment plan has been reviewed and agreement upon by the patient.
--- NOTE | 2023-04-26 16:14 | OPREHPOC ---
Outpatient Therapy Plan of Care This is a Multidisciplinary Plan of Care that may contain components documented by all disciplines (PT, OT, and ST.) PT Problem 1 PT Problem #1 Knowledge Deficit PT Goal 1 Goal Patient will demonstrate independence with home exercise program PT Problem 2 PT Problem #2 Pain PT Goal 1 Goal Patient will report R hip pain as 2/10 with activity PT Problem 3 PT Problem #3 Impaired Strength PT Goal 1 Goal 1. Patient will perform RLE single leg stance for 10 seconds 2. Patient will perform 20 reps supine bridges PT Problem 4 PT Problem #4 Impaired Gait PT Goal 1 Goal 1. Patient will report ability to ambulate for 10 minutes in community with pain rated 2/10 or less
--- NOTE | 2023-05-24 10:43 | PTOPDC ---
Assessment and note entered by Fina Luong, PT Evaluation Information Assessment Status Discharge Diagnosis hip pain Onset 1 year ago Subjective Information Patient reports pain as 1-2/10 in R hip at this time. Reports independence with home exercises and improved ability to ambulate in community. Reported Pain Level Pain Score 1: Self Report Assessment PT Clinical Summary Patient initially come to PT due to R hip pain, pain has improved to 1-2/10 with activity. Patient is independent with all exercises and has demonstrated good improvement in hip strength/ flexibility. Patient is ready for DC from PT at this time, educated to continue with home exercises and to notify MD if pain worsens. Plan of Care PT Services Indicated No
== END 2023-05-24 14:51 | disposition home or self-care (01) ==
LOC: ANHPT 10:00
PROVIDERS: PCP Emergency Medicine; Visit Provider Emergency Medicine
DX: M25.551 Pain in right hip (principal)
CPT/HCPCS: 97110; 97162; 97530

== ENCOUNTER 2023-11-09 08:53 | Outpatient (CLI) | payer OTHER, SELFPAY ==
--- NOTE | ~2023-11-09 | MM_ITS ---
EXAMINATION: MM screening tejas BI w markos HISTORY: Screening TECHNIQUE: Craniocaudal and mediolateral oblique 3-D tomosynthesis images were obtained and synthetic 2-D images were generated. CAD analysis was submitted and interpreted. COMPARISON: Comparison to multiple prior studies sequentially, with oldest reviewed study dated 06/05. BREAST PARENCHYMAL COMPOSITION: The breasts are heterogeneously dense, which may obscure small masses . FINDINGS: There is no evidence of suspicious mass, calcification, or architectural distortion to sugg est malignancy in either breast. There has been no suspicious interval change. IMPRESSION: 1. No mammographic evidence of malignancy. 2. Recommend routine screening mammography in one year. BI-RADS Category 1: Negative Reviewed, dictated and finalized at location A. [employer]
== END 2023-11-09 08:54 | disposition home or self-care (01) ==
LOC: ANHIMG 08:55
PROVIDERS: PCP Emergency Medicine; Visit Provider Obstetrics & Gynecology
DX: Z12.31 Encounter for screening mammogram for malignant neoplasm of breast (principal)
CPT/HCPCS: 77063; 77067

== ENCOUNTER 2024-04-26 12:15 | Emergency (ER) | payer OTHER, SELFPAY ==
--- NOTE | ~2024-04-26 | XR_ITS ---
XR chest 2V DATE: 04/26/2024 13:35 INDICATION: Cough, wheezing TECHNIQUE: PA and lateral views COMPARISON: 02/10/2023 PA and lateral chest FINDINGS: Normal heart size. No hilar or mediastinal enlargement. No pulmonary infiltrate or consolid ation, pleural effusion or pulmonary vascular congestion or pneumothorax. Included skeletal structures appear normal. IMPRESSION: Negative chest Reviewed, dictated and finalized at location A. IMPRESSION: Negative chest
[2024-04-26 12:26] VITALS: BP 109/58; PULSE 83; RESP 18; TEMP 36.8; O2SAT 100
--- NOTE | 2024-04-26 13:25 | ED.URI ---
HPI - URI/Sore Throat General Chief Complaint: Upper Respiratory Infection Stated Complaint: Cold symptoms Source: patient Mode of arrival: ambulatory Limitations: no limitations History of Present Illness HPI Narrative: 43-year-old female presents to [facility] with complaints of 1 week history of body aches, chills, bilateral ear pressure and productive cough. Patient reports that her symptoms were improving but then became much worse yesterday. Patient denies nasal congestion, runny nose, fever, nausea, vomiting or diarrhea. Patient is nonsmoker. Patient denies recent travel. Patient denies sick contacts MD elicited complaint: cough Onset (ago): week(s) (1) Able to tolerate fluids by mouth: Yes Exacerbating factors: nothing Related Data Home Medications Medication Instructions Recorded Confirmed doxycycline monohydrate 50 mg mg 04/26/24 capsule levonorgestrel 21 mcg/24 hr (up to 1 device intrauterine ONCE 04/26/24 04/26/24 8 years) 52 mg intrauterine device (Mirena) Allergies Allergy/AdvReac Type Severity Reaction Status Date / Time Penicillins Allergy Severe Anaphylaxis Verified 04/26/24 12:53 Review of Systems Constitutional: Constitutional: Reports chills, Denies fatigue, Denies fever(s) and Denies weakness ENT: Denies dizziness, Denies epistaxis and Denies nasal congestion Respiratory: Respiratory: Reports cough, Denies dyspnea and Denies wheezing Gastrointestinal: Gastrointestinal: Denies diarrhea, Denies nausea and Denies vomiting Musculoskeletal: Musculoskeletal: Denies arthralgias and Denies joint swelling Integumentary/Breasts: Skin/Breast: Denies pruritus, Denies erythema, Denies rash and Denies skin ulcer Neurologic: Denies syncope and Denies headache(s) [facility] Past Medical History Medical History Hypothyroidism Surgical History Surgical History H/O hernia repair Family History Family History Father Family history of lung cancer Sibling Lymphoma Social History Social History Smoking packs per day: 1 Smoking cigarettes per day: 20.0 Years smoked: 20 Smoking pack-years: 20.00 Smoking status: Former smoker Tobacco type: cigarettes Second hand tobacco smoke exposure: No Smoking end date: 11/19/11 Alcohol intake: current Substance use type: does not use Gender identity (if verbalized by the patient): Female Comments At time of signature, I agree with nursing past medical, surgical, social and family history. There is no relevant family history pertinent to the presenting complaint. Exam Const: General: healthy appearing and no acute distress Nutritional Appearance: well nourished Orientation/consciousness: patient oriented x3 Limitations: no limitations HENMT: Head: normal to inspection Ears: external ears normal, TM's normal bilaterally and EAC's normal Mouth: Yes Normal oral and palatal mucosa present and Yes moist mucous membranes Throat: uvula midline Other: Mild erythema noted to posterior pharynx. Eyes: Conjunctivae: conjunctivae normal Neck: Neck: normal visual inspection Resp: Effort & Inspection: normal respiratory effort, not labored, no retractions and not tachypneic Auscultation: wheezes right lower Cardio: Rate: regular rate Rhythm: regular rhythm Heart sounds: no murmurs Skin: General skin exam: normal color Rashes: no rashes Neuro: General: patient oriented x3 Speech: normal speech Psych: Affect: normal affect Attitude: cooperative Course Course Level of Care: Express Care Visit Vital Signs Vital signs: Vital Signs Temperature 36.8 C 04/26/24 12:26 Pulse Rate 83 04/26/24 12:26 Respiratory Rate 18 04/26/24 12:26 Blood Pressure 109/58 L 04/26/24 12:26 Pulse Oximetry
== END 2024-04-26 13:58 | disposition home or self-care (01) ==
PROVIDERS: Emergency Provider Nurse Practitioner Family
DX: J06.9 Acute upper respiratory infection, unspecified (principal); Z20.822 Contact with and (suspected) exposure to COVID-19; Z87.891 Personal history of nicotine dependence; E03.9 Hypothyroidism, unspecified
CPT/HCPCS: 71046; 87081; 87426; 87804; 87880; 99213; G0463

== ENCOUNTER 2024-12-08 07:54 | Outpatient (CLI) | payer OTHER, SELFPAY ==
--- NOTE | ~2024-12-08 | MM_ITS ---
EXAMINATION: MM screening tejas BI w markos HISTORY: Screening TECHNIQUE: Craniocaudal and mediolateral oblique 3-D tomosynthesis images were obtained and synthetic 2-D images were generated. CAD analysis was submitted and interpreted. COMPARISON: Comparison to multiple prior studies sequentially, with oldest reviewed study dated 06/05. BREAST PARENCHYMAL COMPOSITION: Dense: The breasts are extremely dense, which lowers the sensitivity of mammography. FINDINGS: There is no evidence of suspicious mass, calcification, or architectural distortion to sugg est malignancy in either breast. There has been no suspicious interval change. IMPRESSION: 1. No mammographic evidence of malignancy. 2. Recommend routine screening mammography in one year. BI-RADS Category 1: Negative Reviewed, dictated and finalized at location A. CHER
--- OUTSIDE RECORDS SUMMARY | 2024-12-11 11:41 | XMS_ITS | Patient Health Summary ---
Author Organization [facility] Address [address] [place] [address] Care Team Providers Care Curb Hop Name Role Phone Mesfin Lora MD Primary Care Provider [phone] Note from [facility],non-owned Affiliates and Associated Physician Practices is amultiple site organization consisting of ambulatory clinics and hospital sitesin [place], [place], [place] and [place]. This disclosure is being madepursuant to the Care Everywhere program and may not contain all information available regarding this patient. Last updated 18.[facility] Allergies * Penicillins(Other) Medications * Be aware that medications may not be up to date on this document. Alwaysverify current medications with the patient. * MULTIPLE VITAMIN PO Take 1 tablet by mouth once daily * Cholecalciferol (VITAMIN D-3 PO) Take 1 tablet by mouth once daily * Cyanocobalamin (VITAMIN B12 PO) Take 1 tablet by mouth once daily * HYDROcodone-acetaminophen (NORCO) 5-325 MG tablet(Started 08/24/2020) as needed * desipramine (NORPRAMIN) 10 MG tablet(Started 09/09/2020) Take 1 tablet by mouth at bedtime 1 refill by 09/09/2021 * levonorgestrel (MIRENA) 20 MCG/24HR IUD 1 (one) device by Intrauterine route once daily * lidocaine (XYLOCAINE) 5 % ointment(Started 12/03/2020) APPLY EXTERNALLY TO THE AFFECTED AREA THREE TIMES DAILY NEEDED 3 refills by 12/03/2021 * metroNIDAZOLE (METROGEL) 0.75 % gel(Started 04/24/2022) Apply to face twice daily. 30 days supply. 11 refills by 04/24/2023 * meloxicam (Mobic) 15 MG tablet(Started 04/20/2023) Take 1 (one) tablet by mouth once daily 2 refills by 04/19/2024 * ketoconazole (Nizoral) 2 % shampoo(Started 08/28/2023) APPLY TO THE AFFECTED AREAS DIRECTED * doxycycline monohydrate 100 MG tablet Take 1 (one) tablet by mouth once daily * doxycycline monohydrate 50 MG capsule(Started 01/08/2024) TAKE 1 CAPSULE BY MOUTH DAILY AND 2 CAPSULES DAILY WHEN SYMPTOMS FLARE. 3 refills by 01/07/2025 * fluconazole (Diflucan) 150 MG tablet(Started 01/08/2024) TAKE 1 TABLET BY MOUTH 1 TIME WEEKLY FOR 2 WEEKS * tacrolimus (Protopic) 0.1 % ointment(Started 01/08/2024) Apply to face daily as needed. 30 days supply. Active Problems Problem Noted Date Diagnosed Date Chronic right upper quadrant pain 09/09/2020 Liver masses 09/09/2020 Breast mass, right 07/01/2018 Chronic pain of right knee 05/01/2018 Social History Tobacco Use Types Packs/Day Years Used Date Smoking Tobacco: Former Cigarettes Q uit: 07/01/2011 Smokeless Tobacco: Never Tobacco Cessation:Counseling Given: Not Answered Alcohol Use Standard Drinks/Week Comments No 0 (1 standard drink = 0.6 oz pur e alcohol) dirinks very occasionally PHQ-2 Answer Date Recorded PHQ2 TOTAL SCORE 0 06/20/2023 Sex and Gender Information Value Date Recorded Sex Assigned at Not on file Gender Identity Not on file Sexual Orientation Not on file Last Filed Vital Signs Vital Sign Reading Time Taken Comments Blood Pressure 117/74 06/20/2023 2:11 PM CDT Pulse 64 06/20/2023 2:11 PM CDT Temperature 36.8 ??C (98.3 ??F) 09/09/2020 3:29 PM CD T Respiratory Rate - - Oxygen Saturation 99% 06/20/2023 2:11 PM CDT Inhaled Oxygen Concentration - - Weight 71.7 kg (158 lb) 06/20/2023 2:11 PM CDT Height 172.7 cm (5' 8 ) 06/20/2023 2:11 PM CDT Body Mass Index 24.02 06/20/2023 2:11 PM CDT Procedures * PROC INJ JOINT W US GUIDE (SM/MED/LG)(Performed 06/20/2023) Performed for Right hip impingement syndrome * XR PELVIS W RIGHT HIP 2VW(Performed 06/01/2023) Performed for Hip impingement syndrome, right * PROC PUNCH BIOPSY(Performed 01/23/2023) Performed for Pityrosporum folliculitis, Rash and other nonspecific skin eruption * DERMATOPATHOLOGY(Performed 01/22/2023) Performed for Pityrosporum folliculitis, Rash and other nonspecific skin eruption * HYDROXYINDOLACETIC ACID 5 URINE TIMED(Performed 05/04/2022) * SEROTONIN WHOLE BLOOD(Performed 05/04/2022) Performed for Flushing * HISTAMINE URINE TIMED(Performed 05/04/2022) Performed for Flushing * US BREAST RIGHT LTD(Performed 09/01/2019) Performed for Breast cyst, right * MAMMO BILAT SCREENING(Performed 09/01/2019) Performed for Breast cyst, right * US BREAST RIGHT LTD(Performed 01/06/2019) Performed for Breast mass, right * XR BONE LENGTH SCANOGRAM(Performed 06/05/2018) Performed for Chronic pain of right knee * XR KNEE RIGHT 4VW OR MORE(Performed 05/01/2018) Performed for Right knee pain, unspecified chronicity Results * PROC INJ JOINT W US GUIDE (SM/MED/LG) (06/20/2023 2:16 PM CDT) Narrative Reynaldo Paulino MD - 06/20/2023 2:16 PM CDT Reynaldo Paulino MD ? 06/20/2023 ??3:04 PM U/S-GUIDED INJECTION PROCEDURE NOTE Risks/benefits of injection discussed, including bleeding, infection, site reaction, and possible flare. Pt. Expresses understanding and verbally consents for injection. U/S used to visualize anatomic area first. ??Next area prepped with chloroprep in usual sterile fashion. ?? Ethyl chloride for local anesthesia. ?? 2 cc of 40 mg/mL Triamcinolone Acetonide + 3 cc of 0.5%ropivicaine was injected into Right hip Joint using a caudolateral approach under ultrasound guidance. ??Pt. Tolerated well. ??No complications. An ultrasound image was saved demonstrating the successful needle localization. Reynaldo Paulino MD PROCEDURE/MINOR SILVA RGICAL ORDERABLES * XR PELVIS W RIGHT HIP 2VW (06/01/2023 12:48 PM CDT) Anatomical Region Laterality Modality Pelvis Radiographic Lisette ging 06/01/2023 1:15 PM CDT Impressions 06/01/2023 1:25 PM CDT IMPRESSION: No acute fracture identified. Report dictated by Kenan Barragan MD (residential driver). I, Miguel A Rudolph MD have personally reviewed and interpreted this examination/study. > Interpreting Provider: Miguel A Rudolph MD on 06/01/2023 1:25 PM Narrative 06/01/2023 1:25 PM CDT PROCEDURE: ??XR PELVIS W RIGHT HIP 2VW, DATE/TIME OF EXAM: ??06/01/2023 12:49 PM, LOCATION ??[facility] INDICATION: M25.851: Hip impingement syndrome, right ADDITIONAL CLINICAL INFORMATION: Ordering Provider Reason For Exam: ??impingement views only COMPARISON: None. FINDINGS: No acute fracture is identified. The femoral heads appear well-seated within their respective acetabula. The pubic symphysis is intact. Bone density and texture are normal. The sacroiliac joints are normal. An IUD projects over mid pelvis region. Procedure Note Miguel A Rudolph MD - 06/01/2023 PROCEDURE: XR PELVIS W RIGHT HIP 2VW, DATE/TIME OF EXAM: 2:49 PM, LOCATION [facility] INDICATION: M25.851: Hip impingement syndrome, right ADDITIONAL CLINICAL INFORMATION: Ordering Provider Reason For Exam: impingement views only COMPARISON: None. FINDINGS: No acute fracture is identified. The femoral heads appear well-seated within their respective acetabula. The pubic symphysis is intact. Bone density and texture are normal. The sacroiliac joints are normal. An IUD projects over mid pelvis region. IMPRESSION: No acute fracture identified. Report dictated by Kenan Barragan MD (residential driver). I, Miguel A Rudolph MD have personally reviewed and interpreted this examination/study. > Interpreting Provider: Miguel A Rudolph MD on 06/01/2023 1:25 PM Zenobia Cooper PA-C DIAGNOSTIC IMAGING O RDERABLES * Derm - Punch Biopsy (01/23/2023 2:08 PM [employer]) Narrative Leslie Walton MD - 01/23/2023 2:08 PM [employer] Leslie Walton MD ? 01/23/2023 ??2:11 PM Derm - Punch Biopsy Date/Time: 01/23/2023 2:08 PM Performed by: Leslie Walton MD Authorized by: Leslie Walton MD Consent given by: patient Consent type: verbal Risks discussed with patient: bleeding, need for further testing/treatment, infection, scar formation, skin color change and non-diagnostic biopsy. Consent type: verbal Procedure details: ??Skin prep: isopropyl alcohol ??Anesthesia: lidocaine 1% with epi Location information Left upper back Body area 1: ??Punch size: 3 mm ??Epidermal closure: 4-0 Nylon Total number of lesions: 0 Wound dressing: bandage and petrolatum EBL: less than 5 mL Complications: none Wound care discussed with patient? yes ??Specimen(s) sent to pathology Patient preferred contact method(s): phone Leslie Walton MD PROCEDURE/MINOR SURG ICAL ORDERABLES * DERMATOPATHOLOGY (01/22/2023 3:33 AM [employer]) Case Report Dermatopathology Report ? Case: [id number] ? Authorizing Provider: ??Leslie Walton MD ? Collected: ? 01/22/2023 03:33 AM ? Ordering Location: ? [facility] ?Received: ?01/23/2023 07:19 AM ? Dermatology ? Pathologist: ? Nalini Stephens, ? MD ? Specimen: ?Skin, left upper back ? 3 12:47 PM [facility] Final Diagnosis Specimen A. SKIN, left upper back: FOLLICULITIS, SUPPURATIVE, WITH BACTERIAL COCCI IN THE FOLLICULAR OSTIUM (L73.8) (see microscopic description) 3 12:47 PM [facility] Clinical History PF vs acne 3 12:47 PM [facility] Gross Description Specimen A: Received is one formalin filled container labeled with the patient's name and designated left upper back. The specimen consists of a punch biopsy measuring 3x3x4 mm. Jar 0. 03/10/202 3 12:47 PM [facility]MAT[facility] Microscopic Description Specimen A. SKIN, left upper back: Sections show rupture of the follicular infundibulum, with numerous neutrophils. Tissue gram stain highlights bacterial cocci in the follicular ostium. Grocott's methenamine silver (GMS) stain fails to highlight fungal elements in the available sections. Multiple additional deeper sections were obtained and reviewed. 3 12:47 PM [facility]MAT[facility] Disclaimer An external and internal positive and negative controls are appropriate for the histochemical, immunohistochemical and immunofluorescence stain(s) in this case (if any), except where stated explicitly. The performance characteristics of the stain(s) cited in this report were developed and its performance characteristic determined by the Dermatopathology Laboratory at [facility], directed by Dr. Lorraine Barrett. These tests need not be, and therefore are not, approved by the [place] Food and Drug Administration. The tests are used for clinical purposes. Billing Codes Specimen Charges Stain Charges 07282 1 07360 37439 1 1 3 12:47 PM [facility] Embedded Images 3 12:47 PM [facility] Pathology/Cytolo gy TISSUE SPECIMEN FROM SKIN / Unknown 01/22/2023 3:33 AM [employer] 01/23/2023 7:19 AM [employer] Leslie Walton MD LAB - PATHOLOGY/CYTO LOGY ORDERABLES DERMATOPATHOLOGY LABORATORY [facility] - Department of Dermatology [address], [address] [phone] * SEROTONIN WHOLE BLOOD (05/04/2022 10:37 AM CDT) Serotonin 122 56 - 244 ng/mL [facility] Comment: This test was developed and its analytical performance characteristics have been determined by [facility]. It has not been cleared or approved by FDA. This assay has been validated pursuant to the CLIA regulations and is used for clinical purposes. Test Performed at: [facility] [address] [address] [facility], [place] ??[phone] DARCIE HI MD,PHD,SINAN Blood WHOLE BLOOD SPECIMEN / Unknown 05/04/2022 10:37 AM CDT 05/04/2022 10:38 AM CDT Leslie Walton MD LAB - CHEMISTRY ORDE RABLINDA Performing Organization Address [facility] de Phone Number [facility] [address] [place] [address] * HISTAMINE URINE TIMED (05/04/2022 10:37 AM CDT) Total Volume 3400 mL [facility] Histamine 24 Hour Urine 0.023 0.006 - 0.131 mg/24 h [facility] Comment: This test was performed using a kit that has not been cleared or approved by the FDA. The analytical performance characteristics of this test have been determined by [facility]. This test should not be used for diagnosis without confirmation by other medically established means. Creatinine Urine 0.89 0.50 - 2.15 g/24 h [facility] Comment: REPORT COMMENT: HAS ORDER FOR TWO DR ONLY INPUTED 1 Test Performed at: [facility] [address] [place], [place] ??[address] DARCIE HI MD,PHD,SINAN Urine TIMED URINE SPECIMEN / Unknown 05/04/2022 10:37 AM CDT 05/04/2022 10:38 AM CDT Leslie Walton MD LAB - URINE CHEMISTR Y ORDERABLES Performing Organization Address [facility] Co de Phone Number [facility] [phone] [place] [address] * HYDROXYINDOLACETIC ACID 5 URINE TIMED (05/04/2022 10:37 AM CDT) Total Volume 3400 mL [facility] 5-HIAA Urine 2.0 <=6.0 mg/24 h [facility] Comment: ? This specimen was submitted with a pH greater than 6.0. Optimum pH for this assay is 1.0-6.0. Improper preservation may compromise the validity of the assay. This test was developed and its analytical performance characteristics have been determined by [facility] [place]. It has not been cleared or approved by the U.S. Food and Drug Administration. This assay has been validated pursuant to the CLIA regulations and is used for clinical purposes. Test Performed at: [facility] [address] [place], [place] ??[phone] GURMEET ALVARADO MD,PHD 05/04/2022 10:3 7 AM CDT 05/04/2022 10:38 AM CDT Leslie Walton MD LAB - URINE CHEMISTR Y ORDERABLES [place] [id number] [place] [address] * (ABNORMAL) US BREAST RIGHT LTD (09/01/2019 9:20 AM CDT) Only the most recent of2 resultswithin the time period is included. Anatomical Region Laterality Modality Breast Right Mammography 09/01/2019 9:05 AM CDT Impressions 09/01/2019 9:30 AM CDT IMPRESSION: Unchanged benign-appearing subareolar right breast mass. No evidence of malignancy in either breast. ASSESSMENT: BI-RADS Category 3: ??Probably benign finding, short interval follow up suggested. RECOMMENDATION: Bilateral screening mammogram and targeted right breast ultrasound in one year. Findings discussed with the patient by Dr. Berry. I, Dr. TORO BERRY M.D. have personally reviewed and interpreted this examination/study. This report was electronically signed by TORO BERRY M.D. ??on 09/01/2019 9:30 AM . Narrative 09/01/2019 9:30 AM CDT BILATERAL DIAGNOSTIC MAMMOGRAM TARGETED RIGHT BREAST ULTRASOUND TECHNIQUE: Images were performed using 3D tomosynthesis images with reconstructed/synthetic 2D images. ??CAD analysis was performed. DATE: 09/01/2019. HISTORY: 39-year-old female presenting for short-term follow-up of probably benign masses in the right breast. COMPARISON: Comparison is made with a right breast ultrasound dated 01/06/2019 and prior right breast ultrasound and mammogram dated 06/05/2018 performed at [facility]. BREAST COMPOSITION: The breasts are heterogeneously dense, which may obscure small masses. FINDINGS: Mammogram: There is no suspicious mass, clustered microcalcification, or architectural distortion in either breast on 2D or 3D images. There has been no change in the mammographic appearance compared with the prior study. Ultrasound: Targeted right breast ultrasound was performed in the upper half of the right breast by the nuclear medicine technologist. At the 12:00 position, 3 cm from the nipple, there is a circumscribed, hypoechoic mass measuring 0.7 x 0.7 x 0.4 cm, which is unchanged in appearance when compared with 01/06/2019 and ??06/05/2018. Kenna Nieves MD US ORDERABLES * MAMMO BILAT SCREENING (09/01/2019 9:14 AM CDT) Anatomical Region Laterality Modality Breast Bilateral Mammography 09/01/2019 9:05 AM CDT Impressions 09/01/2019 9:30 AM CDT IMPRESSION: Unchanged benign-appearing subareolar right breast mass. No evidence of malignancy in either breast. ASSESSMENT: BI-RADS Category 3: ??Probably benign finding, short interval follow up suggested. RECOMMENDATION: Bilateral screening mammogram and targeted right breast ultrasound in one year. Findings discussed with the patient by Dr. Berry. I, Dr. TORO BERRY M.D. have personally reviewed and interpreted this examination/study. This report was electronically signed by TORO BERRY M.D. ??on 09/01/2019 9:30 AM . Narrative 09/01/2019 9:30 AM CDT BILATERAL DIAGNOSTIC MAMMOGRAM TARGETED RIGHT BREAST ULTRASOUND TECHNIQUE: Images were performed using 3D tomosynthesis images with reconstructed/synthetic 2D images. ??CAD analysis was performed. DATE: 09/01/2019. HISTORY: 39-year-old female presenting for short-term follow-up of probably benign masses in the right breast. COMPARISON: Comparison is made with a right breast ultrasound dated 01/06/2019 and prior right breast ultrasound and mammogram dated 06/05/2018 performed at [facility]. BREAST COMPOSITION: The breasts are heterogeneously dense, which may obscure small masses. FINDINGS: Mammogram: There is no suspicious mass, clustered microcalcification, or architectural distortion in either breast on 2D or 3D images. There has been no change in the mammographic appearance compared with the prior study. Ultrasound: Targeted right breast ultrasound was performed in the upper half of the right breast by the nuclear medicine technologist. At the 12:00 position, 3 cm from the nipple, there is a circumscribed, hypoechoic mass measuring 0.7 x 0.7 x 0.4 cm, which is unchanged in appearance when compared with 01/06/2019 and ??06/05/2018. Kenna Nieves MD MAMMO ORDERABLES * XR BONE LENGTH SCANOGRAM (06/05/2018 2:18 PM CDT) Anatomical Region Laterality Modality Lower Extremity, Pelvis [facility] 06/06/2018 7:41 AM CDT Impressions 06/06/2018 7:43 AM CDT IMPRESSION: Lower extremity length measurements reported above. This report was electronically signed by MIGUEL A RUDOLPH MD ??on 06/06/2018 7:43 AM . Narrative 06/06/2018 7:43 AM CDT Exam: ??XR BONE LENGTH SCANOGRAM History: ??Leg length Discrepency Comparison: None Findings: The right femur measures 47.5 cm from the femoral head to the medial femoral condyle. The right tibia measures 38.2 cm from the medial tibial plateau to the plafond. The right lower extremity overall measures 86.2 cm from the femoral head to the tibial plafond. The left femur measures 48.2 cm. The left tibia measures 38.4 cm. The left lower extremity measures 87.0 cm. Procedure Note Miguel A Rudolph MD - 06/06/2018 Exam: XR BONE LENGTH SCANOGRAM History: Leg length Discrepency Comparison: None Findings: The right femur measures 47.5 cm from the femoral head to the medial femoral condyle. The right tibia measures 38.2 cm from the medial tibial plateau to the plafond. The right lower extremity overall measures 86.2cm from the femoral head to the tibial plafond. The left femur measures 48.2 cm. The left tibia measures 38.4 cm. Theleft lower extremity measures 87.0 cm. IMPRESSION: Lower extremity length measurements reported above. This report was electronically signed by MIGUEL A RUDOLPH MD on06/06/2018 7:43 AM . Gene Valero MD DIAGNOSTIC IMAGING O RDERABLES * XR KNEE RIGHT 4VW OR MORE (05/01/2018 1:37 PM CDT) Anatomical Region Laterality Modality Lower Extremity Radiographic Lisette ging 05/02/2018 6:52 AM CDT Impressions 05/03/2018 11:55 AM CDT IMPRESSION: No significant arthritis. Small joint effusion. Dictated by Rosalva Ontiveros MD (residential driver). Dr. MIGUEL A Clancy MD have personally reviewed and interpreted this examination/study. This report was electronically signed by MIGUEL A RUDOLPH MD ??on 05/03/2018 11:55 AM . Narrative 05/03/2018 11:55 AM CDT EXAMINATION: XR KNEE RIGHT 4VW OR MORE HISTORY: Pain COMPARISON: Comparison is made with a study from right knee MRI dated on 03/07/2018 FINDINGS: The osseous structures are intact and well aligned without acute fracture or dislocation. The knee joint space is preserved. Small joint effusion is seen. A very small superior patellar osteophyte is noted. Bone density and texture are normal. Procedure Note Miguel A Rudolph MD - 05/03/2018 EXAMINATION: XR KNEE RIGHT 4VW OR MORE HISTORY: Pain COMPARISON: Comparison is made with a study from right knee MRI dated on 03/07/2018 FINDINGS: The osseous structures are intact and well aligned without acutefracture or dislocation. The knee joint space is preserved. Small joint effusionis seen. A very small superior patellar osteophyte is noted. Bone densityand texture are normal. IMPRESSION: No significant arthritis. Small joint effusion. Dictated by Rosalva Ontiveros MD (residential driver). Dr. MIGUEL A Clancy MD have personally reviewed and interpreted this examination/study. This report was electronically signed by MIGUEL A RUDOLPH MD on05/03/2018 11:55 AM . Gene Valero MD DIAGNOSTIC IMAGING O RDERABLES Care Teams Curb Hop Relationship Specialty Start Date End Date Mesfin Lora MD [address] [facility] [address] [place] [phone] PCP - General 01/03/18
--- OUTSIDE RECORDS SUMMARY | 2024-12-11 11:41 | XMS_ITS | Encounter Summary ---
Author Organization [facility] Health Address [address] [place] [address] Care Team Providers Care Wood Fuel Pelletizer Name Role Phone Mesfin Lora MD Primary Care Provider [phone] Reason for Visit * Reason Onset Date Comments MEDICATION REFILL 01/08/2024 Encounter Details Date Type Department Care Team (Late st Contact Info) Description 01/08/2024 Refill [facility] - Dermatology [address] [place] [address], [facility] [place] [phone] Leslie Walton MD [address] [place] [address] [address] [place] [address] MEDICATION REFILL Social History Tobacco Use Types Packs/Day Years Used Date Smoking Tobacco: Former Cigarettes Q uit: 07/01/2011 Smokeless Tobacco: Never Alcohol Use Standard Drinks/Week Comments No 0 (1 standard drink = 0.6 oz pur e alcohol) dirinks very occasionally PHQ-2 Answer Date Recorded PHQ2 TOTAL SCORE 0 06/20/2023 Sex and Gender Information Value Date Recorded Sex Assigned at Not on file Gender Identity Not on file Sexual Orientation Not on file documented as of this encounter Miscellaneous Notes * Telephone Encounter - Luke Cazares MA - 01/08/2024 10:40 AM CST [place] 01/22/2023 [place] 04/28/2024 RTC 4 months Luke Cazares MA IER LOADER documented in this encounter Plan of Treatment Not on file documented as of this encounter Visit Diagnoses Not on filedocumented in this encounter Care Teams Wood Fuel Pelletizer Relationship Specialty Start Date End Date Mesfin Lora MD [address] [facility] [address] [place] [phone] PCP - General 01/03/18 documented as of this encounter
--- OUTSIDE RECORDS SUMMARY | 2024-12-11 11:41 | XMS_ITS | Referral Summary ---
Author Organization [facility] Address [address] [place] [address] Care Team Providers Care Director Family Name Role Phone Mesfin Lora MD Primary Care Provider [phone] Source Comments [facility],non-[facility] Affiliates and Associated Physician Practices is amultiple site organization consisting of ambulatory clinics and hospital sitesin [place], [place], [place] and [place]. This disclosure is being madepursuant to the Care Everywhere program and may not contain all information available regarding this patient. Last updated 18.[facility] Allergies Active Allergy Reactions Criticality Noted Date Comments Penicillins Other 03/15/2018 Not sure of Rxn Medications * Be aware that medications may not be up to date on this document. Alwaysverify current medications with the patient. Medication Sig Dispensed Refills Start Date End Date Status MULTIPLE VITAMIN PO Take 1 tablet by mouth once daily Active Cholecalciferol (VITAMIN D-3 PO) Take 1 tablet by mouth once daily Active Cyanocobalamin (VITAMIN B12 PO) Take 1 tablet by mouth once daily Active HYDROcodone-acetami nophen (NORCO) 5-325 MG tablet as needed 08/24/2020 Active desipramine (NORPRAMIN) 10 MG tablet Take 1 tablet by mouth at bedtime 90 tablet 1 09/09/2020 Active Additional Information Patient not taking.Reported on 10/11/2020 levonorgestrel (MIRENA) 20 MCG/24HR IUD 1 (one) device by Intrauterine route once daily Active lidocaine (XYLOCAINE) 5 % ointment APPLY EXTERNALLY TO THE AFFECTED AREA THREE TIMES DAILY NEEDED 30 g 3 12/03/2020 Active metroNIDAZOLE (METROGEL) 0.75 % gelIndications:Othe r rosacea Apply to face twice daily. 30 days supply. 45 g 11 04/24/2022 Active meloxicam (Mobic) 15 MG tabletIndications:R ight hip pain Take 1 (one) tablet by mouth once daily 30 tablet 2 04/20/2023 Active ketoconazole (Nizoral) 2 % shampooIndications: Pityrosporum folliculitis APPLY TO THE AFFECTED AREAS DIRECTED 120 mL 08/28/2023 Active doxycycline monohydrate 100 MG tablet Take 1 (one) tablet by mouth once daily Active doxycycline monohydrate 50 MG capsuleIndications: Other rosacea TAKE 1 CAPSULE BY MOUTH DAILY AND 2 CAPSULES DAILY WHEN SYMPTOMS FLARE. 60 capsule 3 01/08/2024 Active fluconazole (Diflucan) 150 MG tablet TAKE 1 TABLET BY MOUTH 1 TIME WEEKLY FOR 2 WEEKS 2 tablet 01/08/2024 Active tacrolimus (Protopic) 0.1 % ointmentIndications :Other rosacea Apply to face daily as needed. 30 days supply. 60 g 01/08/2024 Active Active Problems Problem Noted Date Diagnosed Date [...] Mass Index 24.02 06/20/2023 2:11 PM CDT Plan of Treatment Not on file Procedures Procedure Name Priority Date/Time Associated Diagnosis Comments MAMMO BILAT SCREENING Routine 09/01/2019 9:14 AM CDT Breast cyst, right from Last 3 Months or Most Recently Relevant to Health Maintenance Results * MAMMO BILAT SCREENING (09/01/2019 9:14 AM [...] Findings discussed with the patient by Dr. Smith. I, Dr. TORO SMITH M.D. have personally reviewed and interpreted this examination/study. This report was electronically signed by TORO SMITH M.D. ??on 09/01/2019 9:30 AM . Narrative [...] ultrasound and mammogram dated 06/05/2018 performed at [facility]. BREAST COMPOSITION: The breasts are heterogeneously [...] half of the right breast by the dairy technologist. At the 12:00 position, 3 cm from the nipple, there is a circumscribed, hypoechoic mass measuring 0.7 x 0.7 x 0.4 cm, which is unchanged in appearance when compared with 01/06/2019 and ??06/05/2018. Kenna Nieves MD MAMMO ORDERABLES from Last 3 Months or Most Recently Relevant to Health Maintenance Care Teams Director Family Relationship Specialty Start Date End Date Mesfin Lora MD [address] [id number] PCP - General 01/03/18
--- OUTSIDE RECORDS SUMMARY | 2024-12-11 11:41 | XMS_ITS | Encounter Summary ---
Author Organization [facility] Address [address] [place] [address] Care Team Providers Care Compensation/Benefits Specialist Name Role Phone Mesfin Lora MD Primary Care Provider [phone] Reason for Visit * Reason Onset Date Comments Medication Issue 01/29/2024 Encounter Details Date Type Department Care Team (Late st Contact Info) Description 01/29/2024 Telephone [facility] - Dermatology [address] [place] [address], [facility] [place] [place] [id number] Leslie Walton MD [address] [place] [address] [address] [place] [address] Medication Issue Social History Tobacco Use Types Packs/Day Years [...] encounter Miscellaneous Notes * Telephone Encounter - Polly Lebron - 01/29/2024 12:14 PM CDT Pt is having a issues with getting her medication tacrolimus (Protopic) 0.1 % ointment. She is unsure if its her insurance but would like to know if provider would fix the issue. documented in this encounter Plan of Treatment Not on file documented as of this encounter Visit Diagnoses Not on filedocumented in this encounter Care Teams Compensation/Benefits Specialist Relationship Specialty Start Date End Date Mesfin Lora MD [address] [facility] [address] [place] [address] PCP - General 01/03/18 documented as of this encounter
--- OUTSIDE RECORDS SUMMARY | 2024-12-11 11:41 | XMS_ITS | Continuity of Care Document ---
Author Name [facility] Organization [facility] Care Team Providers Care Implant Coordinator Name Role Phone [facility] Unavailable Unavailable Social History Combined list of available smoking, tobacco, and other social history from [facility] of Defense and [facility] Affairs facilities. Social History Type Response Date Comment Sourc e This section is an empty social history section. [facility]
--- OUTSIDE RECORDS SUMMARY | 2024-12-11 11:41 | XMS_ITS | Clinical Summary ---
Author Organization [facility] Address [address] [place] [address] Care Team Providers Care Soft Work Wrapper Examiner Name Role Phone Mesfin Lora MD Primary Care Provider [phone] Source Comments [facility],non-[facility] Affiliates and Associated Physician Practices is amultiple site organization consisting of ambulatory clinics and hospital sitesin [place], [place], [place] and [place]. This disclosure is being madepursuant to the Care Everywhere program and may not contain all information available regarding this patient. Last updated 18.[facility] Allergies Active Allergy Reactions Criticality Noted Date [...] 07/01/2018 Chronic pain of right knee 05/01/2018 Family History Medical History Relation Name Comments Cancer - Lung Father Cancer - Stomach Paternal Grandfather Lymphoma Sister Asthma Neg Hx CVA Neg Hx Cancer - Breast Neg Hx Cancer - Other Neg Hx Cancer - Skin, Melanoma Neg Hx Cancer - Skin, Non Melanoma Neg Hx Eczema Neg Hx Hemophilia Neg Hx Psoriasis Neg Hx Relation Name Status Comments Father Paternal Grandfather Sister Social History Tobacco Use Types Packs/Day Years [...] 06/20/2023 2:11 PM CDT Plan of Treatment Health Maintenance Due Date Last Done Comments COLOGUARD (AGES 45-75) - COL ON CA SCREENING 1979 COLON MONITORING 1979 COLONOSCOPY - COLON CA SCREENING 1979 CT COLONOGRAPHY - COLON CA SCREENING 1979 Colorectal Cancer Screening 1979 FIT - COLON CA SCREENING 1979 FLEX SIG - COLON CA SCREENING 1979 LIPID TESTING 1979 HIV SCREENING 1994 HEPATITIS C SCREENING 07/10/1997 DTAP/TDAP/TD VACCINES (1 - Tdap) 1998 HEPATITIS B VACCINE (1 of 3 - 19+ 3-dose series) 1998 MAMMOGRAM 09/01/2021 09/01/2019 COVID-19 VACCINE (3 - 2023-2 5 season) 2024 02/05/2021, 01/08/2021 INFLUENZA VACCINE (#1) 2024 DEPRESSION SCREENING 11/19/2024 06/20/2023 PAP SMEAR 04/26/2026 04/26/2023, 04/24/2022, 06/20/2021 ZOSTER VACCINE (1 of 2) 2029 HIB VACCINE Aged Out No longer eligi ble based on patient's age to complete this topic HPV VACCINE Aged Out No longer eligi ble based on patient's age to complete this topic MENINGOCOCCAL (Group B) VACCINE Aged Out No longer eligible b ased on patient's age to complete this topic MENINGOCOCCAL VACCINE Aged Out No sherif yazmin eligible based on patient's age to complete this topic PNEUMOCOCCAL VACCINE Aged Out No long er eligible based on patient's age to complete this topic Procedures Procedure Name Priority Date/Time Associated Diagnosis [...] ultrasound and mammogram dated 06/05/2018 performed at [facility]. BREAST COMPOSITION: The breasts are heterogeneously dense, which may obscure small masses. FINDINGS: Mammogram: There is no suspicious mass, clustered microcalcification, or architectural distortion in either breast on 2D or 3D images. There has been no change in the mammographic appearance compared with the prior study. Ultrasound: Targeted right breast ultrasound was performed in the upper half of the right breast by the medical imaging technologist. At the 12:00 position, 3 cm from the nipple, there is a circumscribed, hypoechoic mass measuring 0.7 x 0.7 x 0.4 cm, which is unchanged in appearance when compared with 01/06/2019 and ??06/05/2018. Kenna Nieves MD MAMMO ORDERABLES from Last 3 Months or Most Recently Relevant to Health Maintenance Care Teams Soft Work Wrapper Examiner Relationship Specialty Start Date End Date Mesfin Lora MD [address] [facility] [address] [facility] [address] [facility] [facility] [address] [place] [address] PCP - General 01/03/18
--- OUTSIDE RECORDS SUMMARY | 2024-12-11 11:41 | XMS_ITS | Data Portability ---
Author Organization [facility] [place] Address [address] [place] [address] Care Team Providers Care Research Quality Assurance Analyst Name Role Phone TRISTIN DAVIS Primary Care Provider Assessment Encounter Date Assessment Date Assessment LastModified by Organization Details LastModified Time 12/28/2020 12/28/2020 Annual gynecological exam performed. Patient will come back in a year unless there are new symptoms. [email or web address] Not available 12/28/2020 16:48:54 04/24/2022 04/24/2022 Annual gynecological exam performed. Patient will come back in a year unless there are new symptoms. [email or web address] Not available 04/24/2022 11:18:03 04/26/2023 04/26/2023 Annual gynecological exam performed. Patient will come back in a year unless there are new symptoms. Not available 04/26/2023 09:30:16 06/25/2024 06/25/2024 Annual gynecological exam performed. Patient will come back in a year unless there are new symptoms. [email or web address] Not available 06/25/2024 14:01:39 Plan of Treatment Reminders Order Date Submit Date Provider Last Modified By Organization Details Last Modified Time Details Appointments None record ed. Lab None record ed. Referral None record ed. Procedures None record ed. Surgeries None record ed. Imaging None record ed. Medication Orders None record ed. Patient TargetsNo targets recorded. Patient InstructionsNo instructions recorded. Reason for Referral None Reported. Results Created Date Observation Date Name Description Value Unit Range Abnormal Flag Note LastModifiedBy Organization Detail LastModifiedTime 12/20/1912/20/2020 pregn antonella test, urine HCG negati ve Not Available [place] [address], [place], [address], 12/20/2020 17:35:56 06/20/20 21 06/20/2021 IMAGE GUIDE D PAP AND HPV REGAR DLESS image guided Pap, HPV regardless of Pap result SEE RESULT S BELOW abnormal CASE REPOR T: Cytol ogy Gynec ologi cookie Repor t Case: [id number] Autho yazmin samuels Provi nay: Bran Palmer MD Colle cted: 06/20 1609 Order ing Locat ion: [place] Patho logy Recei jacy: 06/20 2348 First Scree n: Melissa olivares ak, Kj ay, CT Patho logis t: Clemente Potter MD Speci men: Scree mor Pap - Image d, Cervi x STATE MENT OF ADEQU ACY: Satis facto ry for evalu ation Trans forma tion zone compo nent prese nt FINAL DIAGN OSIS: Epith elial Cell Abnor malit y, Squam ous Cell: Atypi cookie squam ous cells of undet ermin ed meeti consuelo araya. Elect brandy barker lex d by Clemente Potter MD on 021 at 1:48 PM ----- ----- ----- ----- ----- ----- ----- ----- ----- ----- ----- ----- ----- ----- ----- ----- ----- ---- HPV RESUL TS: HPV mRNA E6/E7 : No HPV mRNA Detec martin NOTE: This high risk HPV mRNA assay detec ts fourt een high- risk HPV types (16, 18, 31, 33, 35, 39, 45, 51, 52, 56, 58, 59, 66, 68) witho ut diffe renti ation . CHART ABLE COMME NT: Note: This speci men was revie wed by a Cytot echno logis t and/o r Patho logis t (as indic ated in this repor t) after evalu ation using the Thinp rep Imagi ng Syste m. CLINI COOKIE INFOR MATIO N: Menst rual Statu s: LMP (if appli cable ): 10/14 Clini cookie Histo ry/Pr eviou s Pap: Type of Neopl ayan (if appli cable ): Signi fican t Clini cookie Findi ngs: Other Histo ry: Hormo taya (if appli cable ): ASHISH LINARES FOLLO W-UP: Follo w up as warra nted, based on curre nt guide lines and indiv idual patie nt consi derat ions. Not Available [facility] (Lab) [address] [facility], [place], [address], 06/22/2021 14:52:26 04/24/20 22 04/24/2022 IMAGE GUIDE D PAP AND HPV REGAR DLESS image guided Pap, HPV regardless of Pap result SEE RESULT S BELOW CASE REPOR T: Cytol ogy Gynec ologi cookie Repor t Case: [id number] Autho yazmin samuels Provi nay: Bran Palmer MD Colle cted: 04/24 1559 Order ing Locat ion: [place] Patho logy Recei jacy: 04/25 0200 First Scree n: Harriet Johnson ret, CT Speci men: Scree mor Pap - Image d, Cervi x STATE MENT OF ADEQU ACY: Satis facto ry for evalu ation Trans forma tion zone compo nent prese nt FINAL DIAGN OSIS: Negat aline for Intra epith elial Douglas vieyra or Edwin gutierrez (NIL) . Elect brandy barker lex d by Harriet Johnson ret, CT on 022 at 12:25 PM ----- ----- ----- ----- ----- ----- ----- ----- ----- ----- ----- ----- ----- ----- ----- ----- ----- ---- HPV RESUL TS: HPV mRNA E6/E7 : No HPV mRNA Detec martin NOTE: This high risk HPV mRNA assay detec ts fourt een high- risk HPV types (16, 18, 31, 33, 35, 39, 45, 51, 52, 56, 58, 59, 66, 68) witho ut diffe renti ation . COMME NT: Note: This speci men was revie wed by a Cytot echno logis t and/o r Patho logis t (as indic ated in this repor t) after evalu ation using the Thinp rep Imagi ng Syste m. CLINI COOKIE INFOR MATIO N: Menst rual Statu s: LMP (if appli cable ): Clini cookie Histo ry/Pr eviou s Pap: Type of Neopl ayan (if appli cable ): Signi fican t Clini cookie Findi ngs: Other Histo ry: Hormo taya (if appli cable ): PAP EDUCA ALBINA L NOTE: The Pap Test is a scree mor test with an inher ent false negat aline rate. Liqui d-bas ed sampl ing may decre ase, but will not elimi sunshine, false negat aline resul ts. A negat aline resul t does not precl ude the prese nce and/o r devel opmen t of disea se, since the prese nce of abnor mal cells in the sampl e depen ds on the locat ion of the lesio n and sampl ing techn ique. Nickolas nued regul ar scree mor is the best metho d of cance r preve ntion . If repor martin cytol ogic findi ng do not corre late with physi cookie and/o r histo rical findi ngs, furth er inves tigat ion is recom sujatha d, as clini raoul beck nted. Not Available [facility] (Lab) [address], [place], [address], 04/27/2022 13:29:11 04/26/20 23 04/26/2023 IMAGE GUIDE D PAP AND HPV REGAR DLESS image guided Pap, HPV regardless of Pap result SEE RESULT S BELOW CASE REPOR T: Cytol ogy Gynec ologi cookie Repor t Case: [id number] Autho yazmin samuels Provi nay: Bran Palmer MD Colle cted: 04/26 1045 Order ing Locat ion: [place] Patho logshira Recei jacy: 04/27 0627 First Scree n: Kaia yimi, Bella Rescr een: Melissa pak, Kj gutierres, CT Speci men: Ave juares Pap - Image d, Cervi x STATE MENT OF ADEQU ACY: Satis facto ry for evalu ation Trans forma tion zone compo nent prese nt FINAL DIAGN OSIS: Negat aline for Intra epith elial Lesio n or Edwin gutierrez (NIL) . Elect rustamjamaica barker lex d by Melissa pak, Kj gutierres, CT on 2022 at 7:16 PM ----- ----- ----- ----- ----- ----- ----- ----- ----- ----- ----- ----- ----- ----- ----- ----- ----- ---- HPV RESUL TS: HPV mRNA E6/E7 : No HPV mRNA Detec martin NOTE: This high risk HPV mRNA assay detec ts fourt een high- risk HPV types (16, 18, 31, 33, 35, 39, 45, 51, 52, 56, 58, 59, 66, 68) witho ut diffe renti ation . COMME NT: This speci men was revie wed by a Cytot echno logis t and/o r Patho logis t (as indic ated in this repor t) after evalu ation using the Thinp rep Imagi ng Syste m. CLINI COOKIE INFOR MATIO N: Menst rual Statu s: LMP (if appli cable ): Clini cookie Histo ry/Pr eviou s Pap: Type of Neopl ayan (if appli cable ): Signi fican t Clini cookie Findi ngs: Other Histo ry: Hormo taya (if appli cable ): PAP EDUCA ALBINA L NOTE: The Pap Test is a scree mor test with an inher ent false negat aline rate. Liqui d-bas ed sampl ing may decre ase, but will not elimi sunshine, false negat aline resul ts. A negat aline resul t does not precl ude the prese nce and/o r devel opmen t of disea se, since the prese nce of abnor mal cells in the sampl e depen ds on the locat ion of the lesio n and sampl ing techn ique. Nickolas nued regul ar scree mor is the best metho d of cance r preve ntion . If repor martin cytol ogic findi ng do not corre late with physi cookie and/o r histo rical findi ngs, furth er inves tigat ion is recom sujatha d, as clini raoul beck nted. Not Available [facility] (Lab) [address] [facility], [place], [address], 05/01/2023 20:19:56 06/25/20 24 06/25/2024 IMAGE GUIDE D PAP AND HPV REGAR DLESS image guided Pap, HPV regardless of Pap result SEE RESULT S BELOW CASE REPOR T: Cytol ogy Gynec ologi cookie Repor t Case: [id number] Autho yazmin samuels Provi nay: Bran Palmer MD Colle cted: 06/25 1438 Order ing Locat ion: [place] Patho logy Recei jacy: 06/26 0100 First Scree n: Harriet Johnson ret, CT Speci men: Scree mor Pap - Image d, Cervi x STATE MENT OF ADEQU ACY: Satis facto ry for evalu ation Trans forma tion zone compo nent prese nt ----- ----- ----- ----- ----- ----- ----- ----- ----- ----- ----- ----- ----- ----- ----- ----- ----- ---- FINAL DIAGN OSIS: Negat aline for Intra epith elial Lesio n or Edwin alexandrecy (NIL) . Elect brandy barker lex d by Harriet Johnson ret, CT on 2023 at 12:56 PM ----- ----- ----- ----- ----- ----- ----- ----- ----- ----- ----- ----- ----- ----- ----- ----- ----- ---- HPV RESUL TS: HPV mRNA E6/E7 : No HPV mRNA Detec martin NOTE: This high risk HPV mRNA assay detec ts fourt een high- risk HPV types (16, 18, 31, 33, 35, 39, 45, 51, 52, 56, 58, 59, 66, 68) witho ut diffe renti ation . COMME NT: This speci men was revie wed by a Cytot echno logis t and/o r Patho logis t (as indic ated in this repor t) after evalu ation using the Thinp rep Imagi ng Syste m. CLINI COOKIE INFOR MATIO N: Menst rual Statu s: LMP (if appli cable ): Clini cookie Histo ry/Pr eviou s Pap: Type of Neopl ayan (if appli cable ): Signi fican t Clini cookie Findi ngs: Other Histo ry: Hormo taya (if appli cable ): PAP EDUCA ALBINA L NOTE: The Pap Test is a scree mor test with an inher ent false negat aline rate. Liqui d-bas ed sampl ing may decre ase, but will not elimi sunshine, false negat aline resul ts. A negat aline resul t does not precl ude the prese nce and/o r devel opmen t of disea se, since the prese nce of abnor mal cells in the sampl e depen ds on the locat ion of the lesio n and sampl ing techn ique. Nickolas nued regul ar scree mor is the best metho d of cance r preve ntion . If repor martin cytol ogic findi ng do not corre late with physi cookie and/o r histo rical findi ngs, furth er inves tigat ion is recom sujatha d, as clini raoul beck nted. Not Available [facility] (Lab) [address], [place], [address], 07/02/2024 14:00:10 05/30/20 21 05/28/2021 MAMMO , scree mor, bilat eral No observ ation record ed. [facility] [address] [place] [address] [place] [address], [phone], 05/31/2021 19:38:06 06/15/20 22 06/15/2022 MAMMO , scree mor, digit al, bilat eral No observ ation record ed. [address] [place] [address], [address], 06/16/2022 16:10:16 11/09/20 23 11/09/2023 MAMMO , scree mor, bilat eral No observ ation record ed. [address] [facility], [place], [address], 11/10/2023 11:08:20 12/08/19 25 12/08/2024 MAMMO , scree mor, bilat eral No observ ation record ed. [address] [place] [address], [address], 12/10/2024 08:10:14 Result Notes None recorded. Problems Name Problem SNOMED Code Status Onset Date Resolution Date Notes Provider Name and Address Organization Details Recorded Time Intraute rine contrace ptive device in situ 779950437 Completed 201506/21/2021 Miguelina gruloln [facility] 13:29:32 Deep pain on intercou rse [id number] Completed 201506/21/2021 Deep dyspareu michael;Prac mary ID: 0001 Miguelina Rasmussen null, [facility] 13:28:52 Syphilis test finding [id number] Completed 201506/21/2021 Encntr screen for infectio ns w sexl mode of transmis s;Practi ce ID: 0001 Miguelina grullon, [facility] 13:29:44 Infectio n screenin g Completed 201506/21/2021 Encounte r for screenin g for oth infec/pa rastc diseases ;Practic e ID: 0001 Migueilna grullon, [facility] 13:29:27 Finding by site Completed 201506/21/2021 Dermatit is, unspecif ied;Prac mary ID: 0001 Miguelina grullon, [facility] 13:29:10 Acute vulvitis [id number] Completed 201506/21/2021 Acute vulvitis ;Practic e ID: 0001 Miguelina grullon, [facility] 13:28:26 Acute vaginiti s [id number] Completed 201506/21/2021 Acute vaginiti s;Practi ce ID: 0001 Miguelina grullon, [facility] 13:28:24 Educatio n Completed 201506/21/2021 Encounte r for oth general cnsl and advice on contrace ption;Pr actice ID: 0001 Miguelina grullon, [facility] 13:29:01 Insertio n of intraute rine contrace ptive device Completed 201506/21/2021 Encounte r for insertio n of intraute rine contrace ptive device;P ractice ID: 0001 Miguelina grullon, [facility] 13:29:29 Pregnanc y test negative [id number] Completed 201506/21/2021 Encounte r for pregnanc y test, result negative ;Practic e ID: 0001 Miguelina grullon [facility] 13:29:35 Contrace ptive sheath status [id number] Completed 201606/21/2021 Encounte r for routine checking of intraute rine contrace p dev;Prac mary ID: 0001 Miguelina Rasmussen [facility], [facility] 13:28:30 Finding of sensatio n of breast Completed 201706/21/2021 Mastodyn ia;Pract ice ID: 0001 Miguelina Rasmussen [facility] 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 13:29:40 Hernia of abdomina l cavity [id number] Completed 201706/21/2021 Unspecif ied abdomina l hernia without obstruct ion or gangrene ;Practic e ID: 0001 Miguelina Rasmussen [facility] 13:29:25 Urinary tract infectio us disease [id number] Completed 201706/21/2021 Urinary tract infectio n, site not specifie d;Practi ce ID: 0001 Miguelina Rasmussen [facility] 13:29:46 Bleeding [id number] Completed 201706/21/2021 Abnormal uterine and vaginal bleeding , unspecif ied;Alex rded Elsewher e: No Locat ion: Michaela wright [facility] S ource: EHR Painting Technician russel: N Practi ce ID: 0001 Kain lable Time: 04:45:00 PM Miguelina Rasmussen [facility] 1 13:29:07 Cyst of ovary Completed 201806/21/2021 Ovarian cyst;Rec orded Elsewher e: No Locat ion: Michaela wright [facility] S ource: EHR Painting Technician russel: N Matty ce ID: 0001 Kain lable Time: 04:30:00 PM Miguelina grullon [facility] 13:28:[address] Concept Completed 201806/21/2021 Encntr for diamond cutter exam (general ) (routine ) w/o abn findings ;Recorde d Elsewher e: No Locat ion: Michaela wright [facility] S ource: EHR Painting Technician russel: N Azulti ce ID: 0001 Kain lable Time: 05:15:00 PM Miguelina grullon [facility] 13:29:42 Vaginola bial hernia Completed 201506/21/2021 Other specifie d noninfla mmatory disorder s of vagina;P ractice ID: 0001 Miguelina grullon, [facility] 13:29:48 Exposure to sexually transmis sible disorder Completed 201806/21/2021 Exposure to infectio n with a predomin antly sexual mode of transmis konrad;Rec orded Elsewher e: No Locat ion: Michaela wright [facility] S ource: EHR Painting Technician russel: N Azulti ce ID: 0001 Kain lable Time: 10:45:00 AM Miguelina grullon [facility] [address] 13:29:[address] Concept Completed 201706/21/2021 Encntr for general adult medical exam w/o abnormal findings ;Recorde d Elsewher e: No [facility] ource: EHR Painting Technician russel: N Azulti ce ID: 0001 Kain lable Time: 03:30:00 PM Miguelina grullon [facility] 13:29:38 Genuine stress incontin ence [id number] Completed 201806/21/2021 Female stress incontin ence;Rec orded Elsewher e: No Locat ion: [facility] r[facility]el: N Azulti ce ID: 0001 Kain lable Time: 09:15:00 AM Miguelina grullon [facility] 13:29:16 Lesion of ovary Completed 201806/21/2021 Other ovarian cyst, left side;Rec orded Elsewher e: No Locat ion: [facility] S ource: [facility] russel: N Azulti ce ID: 0001 Kain lable Time: 04:00:00 PM Miguelina Rasmussen [facility], [facility] 13:28:57 Radiolog ic finding [id number] Completed 201706/21/2021 Oth abn and inconclu sive findings on dx imaging of breast;R ecorded Elsewher e: No Locat ion: [facility] S ource: [facility] russel: N Azulti ce ID: 0001 Kain lable Time: 08:45:00 AM Miguelina grullon [facility] 13:28:28 Lesion of ovary Completed 201706/21/2021 Other ovarian cyst, unspecif ied side;Rec orded Elsewher e: No Locat ion: [facility] S ource: [facility] russel: N Azulti ce ID: 0001 Kain lable Time: 03:00:00 PM Miguelina grullon [facility] 13:28:59 Lesion of ovary Completed 201806/21/2021 Other ovarian cyst, right side;Rec orded Elsewher e: No Locat ion: [facility] S ource: [facility] russel: N Azulti ce ID: 0001 Kain lable Time: 08:15:00 AM Miguelina grullon [facility] 13:28:54 Postcoit al finding [id number] Completed 201806/21/2021 Postcoit al and contact bleeding ;Recorde d Melvin e: No Locat ion: Micahela wright [facility] S ource: EHR Painting Technician russel: N Azulti ce ID: 0001 Kain lable Time: 04:30:00 PM Miguelina grullon [facility] 13:29:33 Problem Notes None recorded. Procedures Surgical History Date Name Laterality Status Provider Name and Address Organization Details Recorded Time 11/09/20 23 Date of Last Mammogram completed Griselda Devyn [facility] 06/25/2024 14:03:53 04/26/20 23 Date of Last Pap Smear completed Griselda Shepard [facility] 06/25/2024 14:03:22 12/20/19 21 IUD Replacement completed Juan Palmer MD [address], [place], [address], [facility] 12/20/2020 17:44:29 10/19/20 19 Hernia repair w/mesh completed Cyndi Haywood [facility] 10/22/2020 16:59:43 06/12/20 19 cystoscopy completed Miguelina Rasmussen [facility] 08/14/2022 15:16:43 Knee arthroscopy/ermelinda ginette completed Miguelina Rasmussen [facility] 08/14/2022 15:17:06 Imaging Results Imaging Date Name Status LastModified by Organiz ation Details LastModified Time 05/28/2021 MAMMO, screening, bilateral completed [facility] [address] [place] [address], [phone], 05/31/2021 19:38:06 06/15/2022 MAMMO, screening, digital, bilateral completed [address], [address], 06/16/2022 16:10:16 11/09/2023 MAMMO, screening, bilateral completed [place] [id number] [facility] [address], [place], [address], 11/10/2023 11:08:20 12/08/2024 MAMMO, screening, bilateral active [facility] [address] [facility] [address], [place], [address], 12/10/2024 08:10:14 Procedure Notes None recorded. Medical Equipment None Reported. Allergies Allergen ID Allergen Name Allergen Category Reaction Reaction Severity Criticality Documentation Date Start Date Code Code System Note Provider Name and Address Organization Details Recorded Time 2887 Product containin g penicilli n and antibioti c (product) medicatio n Not available Not available Not available 10/22/2020 13192 05 SNOMED UNKNO WN REACT ION Jess Polly [place], [place] - [facility] 3 09:35:37 Medications Name Sig Start Date Stop Date Status Note LastModified by Organization Details LastModified Time Mirena 21 mcg/24 hr (up to 8 years) 52 mg intrauter ine device 2017 active Prescrib ed Elsewher e: Yes Loca tion: [facility] M odify By: maría Wright ncounter DateTime : 04/04/20 18 03:30:00 PM Not Available Not Available Not Available fluconazo le 100 mg tablet TAKE 1 TABLET BY MOUTH EVERY DAY 06/20 completed Not Available Not Available Not Available ketoconaz ole 2 % shampoo APPLY TO THE AFFECTED AREAS DIRECTED 04/26 completed Not Available Not Available Not Available clindamyc in HCl 300 mg capsule TAKE 1 CAPSULE BY MOUTH EVERY 8 HOURS 06/20 completed Not Available Not Available Not Available azithromy glenny 250 mg tablet TK 2 TS PO ON DAY 1, THEN TK 1 T PO D FOR 4 DAYS 06/25 completed Not Available Not Available Not Available ibuprofen 800 mg tablet TK 1 T PO Q 8 H PRF PAIN 10/22 completed Not Available Not Available Not Available fluconazo le 150 mg tablet TAKE 1 TABLET BY MOUTH 1 TIME WEEKLY FOR 2 WEEKS 06/25 completed Not Available Not Available Not Available valacyclo vir 1 gram tablet TAKE 1 TABLET BY MOUTH EVERY 12 HOURS FOR 5 DAYS active Not Available Not Available No t Available hydrocodo ne 5 mg-acetam inophen 325 mg tablet TAKE 1 TABLET BY MOUTH EVERY 6 HOURS NEEDED FOR PAIN 06/20 completed Not Available Not Available Not Available meloxicam 15 mg tablet TAKE 1 TABLET BY MOUTH EVERY DAY 06/25 completed Not Available Not Available Not Available Cleocin 100 mg vaginal supposito ry insert 1 supposit ory by vaginal route every day for 3 days at bedtime 10/02 completed Prescrib ed Elsewher e: No Locat ion: [facility] odify By: [email or web address] Encounte r DateTime : 09/30/20 18 09:00:00 AM Not Available Not Available Not Available clobetaso l 0.05 % topical cream apply by topical route 2 times every day a thin layer to the affected area(s) 09/27 completed Prescrib ed Elsewher e: No Locat ion: [facility] odify By: [email or web address] h Allison pérez DateTime : 09/27/20 16 04:45:00 PM Not Available Not Available Not Available clindamyc in HCl 150 mg capsule take 1 capsule by oral route every 6 hours 07/29 completed Prescrib ed Elsewher e: No Locat ion: [facility] odify By: [email or web address] ncodenaer DateTime : 07/12/20 18 05:33:06 PM Not Available Not Available Not Available ciproflox acin 500 mg tablet TAKE 1 TABLET BY MOUTH EVERY 12 HOURS FOR 7 DAYS 04/26 completed Not Available Not Available Not Available omeprazol e 40 mg capsule,d elayed release 04/26 completed Not Available Not Available Not Available doxycycli ne monohydra te 100 mg tablet TAKE 1 TABLET BY MOUTH DAILY 06/25 completed Not Available Not Available Not Available doxycycli ne monohydra te 50 mg capsule TAKE 1 CAPSULE BY MOUTH DAILY AND 2 CAPSULES DAILY WHEN SYMPTOMS FLARE 06/25 completed Not Available Not Available Not Available Metrogel Vaginal 0.75 % (37.5 mg/5 gram) insert 1 applicat orful by vaginal route every day at bedtime for 5 nights 07/02 completed Prescrib ed Elsew e: No Locat ion: Michaela wright [facility] odify By: ammeredith mcdowell DateTime : 06/10/20 18 11:05:47 AM Not Available Not Available Not Available famotidin e 20 mg tablet TAKE 1 TABLET BY MOUTH TWICE DAILY 04/24 completed Not Available Not Available Not Available estradiol 1 mg tablet Take 2 tablets every day by oral route for 14 days. 12/20 completed Not Available Not Available Not Available tacrolimu s 0.1 % topical ointment APPLY TOPICALL Y TO FACE DAILY NEEDED 06/25 completed Not Available Not Available Not Available omeprazol e 20 mg capsule,d elayed release TAKE 1 CAPSULE BY MOUTH DAILY 06/25 completed Not Available Not Available Not Available estradiol 2 mg tablet TAKE 1 TABLET BY MOUTH DAILY FOR 14 DAYS 12/20 completed Not Available Not Available Not Available clindamyc in 2 % vaginal cream insert 1 applicat orful by vaginal route every day for 7 days at bedtime 10/08 completed Prescrib paulina Charles e: No Locat ion: Michaela wright [facility] odify By: kortney pérez DateTime : 10/02/20 18 03:23:53 PM Not Available Not Available Not Available acyclovir 200 mg capsule TK 1 C PO FID 10/22 completed Not Available Not Available Not Available ibuprofen 600 mg tablet TK 1 T PO TID FEV OR PAIN 10/22 completed Not Available Not Available Not Available methylpre dnisolone 4 mg tablets in a dose pack FOLLOW PACKAGE DIRECTIO NS 04/24 completed Not Available Not Available Not Available ferrous sulfate 325 mg (65 mg iron) tablet,de layed release TAKE 1 TABLET BY MOUTH DAILY 06/25 completed Not Available Not Available Not Available metronida zole 0.75 % topical gel APPLY TOPICALL Y TO FACE TWICE DAILY 04/26 completed Not Available Not Available Not Available desiprami ne 10 mg tablet TK 1 T PO HS 04/24 completed Not Available Not Available Not Available nitrofura ntoin monohydra te/macroc rystals 100 mg capsule TAKE 1 CAPSULE BY MOUTH TWICE DAILY X 7 DAYS 12/20 completed Not Available Not Available Not Available doxycycli ne hyclate 11/23 completed Not Available Not Available Not Available FeroSul 325 mg (65 mg iron) tablet TAKE 1 TABLET BY MOUTH EVERY DAY 04/26 completed Not Available Not Available Not Available lidocaine 5 % topical ointment APPLY EXTERNAL LY TO THE AFFECTED AREA THREE TIMES DAILY NEEDED 12/20 completed Not Available Not Available Not Available Vitals Date Recorded Body height Body mass index (BMI) Body weight Systolic blood pressure Diastolic blood pressure Provider Name and Address Organization Details Last Updated DateTime 06/20/2021 172.72 cm 24.2 kg/m2 00169.19 g 101 mm[Hg] 62 mm[Hg] Miguelina Rasmussen [facility] 1 09:45:13 Date Recorded Body height Body mass index (BMI) Body weight Systolic blood pressure Diastolic blood pressure Provider Name and Address Organization Details Last Updated DateTime 04/24/2022 172.72 cm 24 kg/m2 04005.59 g 107 mm[Hg] 67 mm[Hg] Miguelina Rasmussen [facility] 2 11:19:05 Date Recorded Body height Body mass index (BMI) Body weight Systolic blood pressure Diastolic blood pressure Provider Name and Address Organization Details Last Updated DateTime 04/26/2023 172.72 cm 24.2 kg/m2 11216.19 g 101 mm[Hg] 63 mm[Hg] Jess Matias [facility] 3 09:35:22 Date Recorded Body height Body mass index (BMI) Body weight Systolic blood pressure Diastolic blood pressure Provider Name and Address Organization Details Last Updated DateTime 06/25/2024 172.72 cm 24.2 kg/m2 09943.19 g 112 mm[Hg] 71 mm[Hg] Griselda Shepard [facility] 4 14:02:09 Date Recorded Body height Body mass index (BMI) Body weight Systolic blood pressure Diastolic blood pressure Provider Name and Address Organization Details Last Updated DateTime 12/28/2020 172.72 cm 24 kg/m2 87235.59 g 118 mm[Hg] 79 mm[Hg] Cyndi Haywood [facility] 16:49:01 Social History Question Answer Notes LastModified by Organizat ion Details LastModified Time Tobacco Smoking Status Former Smoker Jess Matias mitchel, [facility] 04/26/2023 09:30:29 What Is Your Level Of Alcohol Consumption? Occasional [email or web address] Information not available 11/23/2020 Are You Blind Or Do You Have Difficulty Seeing? No [email or web address] Information not available 04/24/2022 What Is Your Level Of Caffeine Consumption? Occasional [email or web address] Information not available 08/14/2022 In The 14 Days Before Symptom Onset, Have You Had Close Contact With A Laboratory-confir med COVID-19 While That Case Was Ill? No [email or web address] Information not available 08/14/2022 In The 14 Days Before Symptom Onset, Have You Had Close Contact With A Person Who Is Under Investigation For COVID-19 While That Person Was Ill? No [email or web address] Information not available 08/14/2022 Have You Been To An Area Known To Be High Risk For COVID-19? No [email or web address] Information not available 08/14/2022 Are You Deaf Or Do You Have Serious Difficulty Hearing? No [email or web address] Information not available 04/24/2022 What Type Of Diet Are You Following? REGULAR [email or web address] Information not available 04/24/2022 Do You Or Have You Ever Used E-cigarettes Or Vape? Never Used Electronic Cigarettes Information not available 04/26/2023 What Is The Highest Grade Or Level Of School You Have Completed Or The Highest Degree You Have Received? [id number] Information not available 04/26/2023 What Was The Date Of Your Most Recent Tobacco Screening? 08/14/2022 Information not available 04/26/2023 Have You Ever Been Counseled For Unhealthy Alcohol Use? No Information not available 04/26/2023 Do You Use Your Seat Belt Or Car Seat Routinely? Yes [email or web address] Information not available 08/14/2022 Do You Have Smoke And Carbon Monoxide Detectors In Your Home? Yes [email or web address] Information not available 08/14/2022 Do You Or Have You Ever Used Smokeless Tobacco? Never Used Smokeless Tobacco Information not available 04/26/2023 How Much Tobacco Do You Smoke? No [email or web address] Information not available 11/23/2020 Do You Feel Stressed (tense, Restless, Nervous, Or Anxious, Or Unable To Sleep At Night)? [id number] [email or web address] Information not available 08/14/2022 Do You Use Any Illicit Or Recreational Drugs? No [email or web address] Information not available 08/14/2022 Do You Use Sunscreen Routinely? Yes [email or web address] Information not available 08/14/2022 Has Tobacco Cessation Counseling Been Provided? No Information not available 04/26/2023 Do You Or Have You Ever Used Any Other Forms Of Tobacco Or Nicotine? No Information not available 04/26/2023 Sex: Unknown Functional Status Question Answer Note LastModified by Organizat ion Details LastModified Time Do you have difficulty walking or climbing stairs? No Information not available 04/26/2023 Are you able to walk? YESWOREST [email or web address] Information not available 04/24/2022 Are you able to care for yourself? Yes Information not available 04/26/2023 Do you have difficulty dressing or bathing? No Information not available 04/26/2023 What is your exercise level? Occasional [email or web address] Information not available 11/23/2020 Mental Status None recorded. Family History Relationship Description Onset Age of this Age Resolved Age Notes LastModified by Organization Details LastModified Time Father Hypercholest erolemia [email or web address] Not available 2019 16:57:32 Father Carcinoma in situ of lung [email or web address] Not available 05/2024 13:55:35 Paternal Grandfather Diabetes mellitus [email or web address] Not available 2019 16:57:51 Medical History Condition Response Allergies (Food, seasonal, environmental ) N Other Y Breast Cancer N Drug/Latex Allergies/Reactions N Blood Transfusion N Dermatologic Disorders Y Lung Disease N Defects or Inherited Disease N Breast Problem N Gestational Diabetes N Hematologic disorders N Anesthesia Complications N History of STI Y Deep Vein Thrombosis N Polycystic ovary syndrome N Anxiety Disorder N Autoimmune disease N Arthritis Y Infertility N Polyps N Acid Reflux (GERD) N History of abnormal pap Y Cancer N Stroke N Varicosities N Neurologic/Epilepsy N Endometriosis N High Cholesterol N Headaches N Fibromyalgia N Kidney Disease N Heart Problems N Kidney or Bladder Problems Y Thyroid Problems N GI Problems Y Eating Disorder N Anemia N Art (IVF or FET) N Psychiatric Illness N Ovarian Cancer N Diabetes N Pulmonary (TB, Asthma) N Hepatitis/Liver Disease N No Past Medical History N Eczema N Urinary Tract Infection N Abuse/Domestic Violence N Asthma N Trauma/Violence N Depression/ depression N Heart Disease N Pre-Eclampsia N Hypertension N Osteoporosis N Thrombophilias N Gynecological History Statement/Question Response Date of Last Mammogram 11/09/2023 Date of LMP 10/14/2020 Sexually Active? Y Menses Monthly N Date of DEXA bone scan STIs/STDs Y HPV Vaccine N Date of Last Pap Smear 04/26/2023 Sexual Problems? N Current Control Method IUD LMP Unknown Obstetrics History GPAL:G 1 P 0 0 0 1 Type Value Living 1 Total 1 Past Encounters Encounter ID Performer Location Encounter Start Date Encounter Closed Date Diagnosis/Indication Diagnosis SNOMED-CT Code Diagnosis ICD10 Code Diagnosis Note [id number] Sabine Diaz MD [facility] [address] [address] 10/22/2020 16:41:24 10/25/2020 09:46:51 Bleeding due to intrauterine contraceptive device 861488279 T83.83XA [id number] Juan Palmer MD [place] [address] [address] 11/23/2020 09:29:30 11/23/2020 10:48:07 Bleeding due to intrauterine contraceptive device 632357163 T83.83XA this patient is a 40-year-ol d female presents for abnormal uterine bleeding. It appears to be associated with her IUD. She has longstandi ng IUD. Patient wants to switch out the IUD. We agreed to that. She recently was treated with estradiol. I gave her some relief for a time. She began bleeding again shortly after the estradiol. We agreed to change at the IUD and treat her with estradiol. We spent 25 minutes face-to-fa ce. We discussed various aspects of her care we reviewed a CT scan from [facility] from over the summer , having to do with her abdominal pain. We agreed to change IUD and she has been treat with 2 months with 2 mg of estradiol. [id number] Juan Palmer MD [place] [address],[place] [address] 12/20/2020 17:07:38 12/20/2020 17:57:05 Contraception care management [id number] Z30.9 IUD removal and reinsertio n. She tolerated well [id number] Juan Palmer MD [place] [address],[place] [address] 12/28/2020 16:42:42 12/28/2020 17:26:10 Gynecologic examination 91712896 Z01.419 This patient is here for her annual exam. A thorough history was taken. A physical exam was performed. Age appropriat e routine health screening was ordered, performed, and discussed. Recommende d testing was ordered. She was asked to follow up in one year. She will be informed of any test results. Mammogram - [ordered ] Colonoscop y - na[ ] Bone Density - [na ] Cholestero l - [ done] Pap - today [id number] Juan Palmer MD [place] [address],[place] [address] 04/24/2022 11:05:19 04/24/2022 11:56:21 Gynecologic examination 01166826 Z11.51 R87.610 This patient is here for her annual exam. A thorough history was taken. A physical exam was performed. Age appropriat e routine health screening was ordered, performed, and discussed. Recommende d testing was ordered. She was asked to follow up in one year. She will be informed of any test results. Mammogram - [ordered ] Colonoscop y - na[ ] Bone Density - [na ] Cholestero l - [ done] Pap - today [id number] Juan Palmer MD [place] [address],[place] [address] 06/20/2021 09:28:57 06/20/2021 16:12:12 Atypical squamous cells of undetermined significance on cervical Papanicolaou smear [id number] R87.610 This patient is a 40-year-ol d female who presents for follow-up on ASCUS Pap smear. We discussed ASCUS Pap with HPV negative findings. The patient very much wants to repeat. I discussed the nature and interpreta tion of this type Pap smear. We agreed to repeat the Pap smear. She was examined in the Pap smear was repeated. She has a normal-vani earing vulva vagina and cervix. [id number] Juan Palmer MD [place] [address],[place] [address] 04/26/2023 09:28:36 04/26/2023 09:56:55 Gynecologic examination [id number] Z01.419 Z11.51 This patient is here for her annual exam. A thorough history was taken. A physical exam was performed. Age appropriat e routine health screening was ordered, performed, and discussed. Recommende d testing was ordered. She was asked to follow up in one year. She will be informed of any test results. Mammogram - [ordered ] Colonoscop y - na[ ] Bone Density - [na ] Cholestero l - [ done] Pap - today [id number] Juan Palmer MD [place] [address],[place] [address] 06/25/2024 13:54:45 06/25/2024 14:45:56 Gynecologic examination 16742357 Z01.419 Z11.51 This patient is here for her annual exam. A thorough history was taken. A physical exam was performed. Age appropriat e routine health screening was ordered, performed, and discussed. Recommende d testing was ordered. She was asked to follow up in one year. She will be informed of any test results. Mammogram - [ordered ] Colonoscop y - na[ ] Bone Density - [na ] Cholestero l - [ done] Pap - today Health Concerns Section Related Observation LastModified by Organization Detai ls LastModified Time None Recorded Concern Status LastModified by Organization Details LastModified Time None Recorded Advance Directives Directive None Recorded Payers Encounter Date Sequence Insurance Name Policy Number Policy Espinal Covered Member ID Espinal Member ID Guarantor Name 12/28/2020 1 [facility] (MEDICAID HMO) [id number] Sivan Cooper [id number] Sivan Cooper 06/20/2021 1 [facility] (MEDICAID HMO) [id number] Sivan Cooper [id number] Sivan Cooper 04/24/2022 1 [facility] (MEDICAID HMO) [id number] Sivan Cooper [id number] Sivan Cooper 04/26/2023 1 [facility] (MEDICAID HMO) [id number] Sivan Cooper [id number] Sivan Cooper 06/25/2024 1 [facility] [id number] Sivan Cooper [id number] Sivan Cooper Notes Date Note Type Note Provider Name and Address Organization Details Recorded Time 12/28/2020 text/html Annual GYNReport ed bypatient.History:no gynecologic complaints Menstrual cycle:Normal menses Urinary symptoms:No hematuria; No incontinence Vulva:No genital lesion Vagina:Normal vaginal discharge Breast:No breast pain; No breast lump; No nipple discharge Current Contraception:Satisf ied with current contraception Sexual complaints:No sexual complaints; No pain during intercourse; Normal libido Menopausal Symptoms:No menopausal symptoms Psychological symptoms:No depression; No anxiety Preventive measures:Encourage self breast examination; Encourage regular exercise Juan Palmer MD [address], [place], [address], [facility] 12/28/2020 17:19:57 06/20/2021 text/html This patient is a 40-year-old female who presents for follow-up on ASCUS Pap smear. We discussed ASCUS Pap with HPV negative findings. The patient very much wants to repeat. I discussed the nature and interpretation of this type Pap smear. We agreed to repeat the Pap smear. She was examined in the Pap smear was repeated. She has a normal-appearing vulva vagina and cervix. Juan Palmer MD [address], [place], [address], [facility] 06/20/2021 15:26:18 04/24/2022 text/html Annual GYNReport ed bypatient.History:no gynecologic complaints Menstrual cycle:Normal menses Urinary symptoms:No hematuria; No incontinence Vulva:No genital lesion Vagina:Normal vaginal discharge Breast:No breast pain; No breast lump; No nipple discharge Current Contraception:Satisf ied with current contraception; Intrauterine device (iud) Sexual complaints:No sexual complaints; No pain during intercourse Menopausal Symptoms:No menopausal symptoms Psychological symptoms:No depression; No anxiety Preventive measures:Encourage self breast examination; Encourage regular exercise Juan Palmer MD [address], [place], [address], [facility] 04/24/2022 11:55:34 04/26/2023 text/html Annual GYNReport ed bypatient.History:no gynecologic complaints Menstrual cycle:Normal menses Urinary symptoms:No hematuria; No incontinence Vulva:No genital lesion Vagina:Normal vaginal discharge Breast:No breast pain; No breast lump Current Contraception:Intrau terine device (iud) Sexual complaints:No sexual complaints; No pain during intercourse Menopausal Symptoms:No menopausal symptoms Psychological symptoms:No depression; No anxiety Preventive measures:Encourage self breast examination; Encourage regular exercise Juan Palmer MD [address], [place], [address], [facility] 04/26/2023 09:54:17 06/25/2024 text/html Annual GYNReport ed bypatient.History:no gynecologic complaints Menstrual cycle:Normal menses Urinary symptoms:No hematuria; No incontinence Vulva:No genital lesion Vagina:Normal vaginal discharge Breast:No breast pain; No breast lump Current Contraception:Satisf ied with current contraception; Intrauterine device (iud) Sexual complaints:No sexual complaints; No pain during intercourse Psychological symptoms:No depression; No anxiety Preventive measures:Encourage self breast examination; Encourage regular exercise Juan Palmer MD [address], [place], [address], [facility] 06/25/2024 14:44:35 OBGyn Episode Ob Episode Information Episode Created Date Number of Fetuses Patient Bloodtype Patient rh Status Prepregnancy Weight lbs Domestic Partner Domestic Partner Phone Father Name Systems Specialist Status 10/22/20 20 1 CLOSED Fetus Data First Name Last Name Admitted to NICU Weight (g) Sex Living Outcome Pediatric Complications Fetus ID Race Codes Race Delivery Type M Prematur e [id number] Vaginal Delivery Abel Calculation Initial Abel Date Initial Exam Date Initial Exam Provider Initial Ultrasound Date Last Menstrual Period Date Ultra Sound Weeks Gestation 0 Eighteen To Twenty Week Abel Update Ultra Sound Date Fundal Height At Umbil Quickening Date Ultra Sound Latest Weeks Gestation Final Abel Confirmed By Final Abel Confirmed Date Final Abel Date Ultra Sound Latest Days Gestation 0 0 Menstrual History Last Menstrual Date Menses Monthly On Bcp Conception Prior Menses Frequency Hcg Plus Date Menarche Onset Age Delivery Information Delivery Date Delivery Type Labor Anesthesia Weeks Gestation Incision Type Labor Labor Length Hrs Delivered By Post Complications Tubal Sterilization Discharge Date Comments 2 35 Discharge Information Feeding Method Contraceptive Method Maternal HG B and HCT Levels
--- OUTSIDE RECORDS SUMMARY | 2024-12-11 11:41 | XMS_ITS | Data Portability ---
Author Organization [place] - [facility] , [facility] Address [address] [place] [address] Assessment No assessment recorded. Plan of Treatment Reminders Order Date Submit Date Provider Last Modified By Organization Details Last Modified Time Details Appointments None recorded. Lab None recorded. Referral None recorded. Procedures None recorded. Surgeries None recorded. Imaging None recorded. Medication Orders doxycycline monohydrate 50 mg capsule 2023 024 [id number], [address], [place], [id number], 13:57:09 Patient TargetsNo targets recorded. Patient Instructions Encounter Date Encounter Id Patient Instructions Last Modified By Organization Details Last Modified Time 10/08/2024 [id number] rosacea: care instructions [email or web address] Not available 10/08/2024 13:57:01 Reason for Referral None Reported. Medical Equipment None Reported. Allergies Allergen ID Allergen Name Allergen Category Reaction Reaction Severity Criticality Documentation Date Start Date Code Code System Note Provider Name and Address Organization Details Recorded Time 21776 Product containin g penicilli n and antibioti c (product) medicatio n Not available Not available Not available 10/05/2024 06406 05 SNOMED Not Available Included [facility] 14:04:53 Medications Name Sig Start Date Stop Date Status Note LastModified by Organization Details LastModified Time doxycycline monohydrate 50 mg capsule Take 1 capsule every day by oral route in the morning for 30 days, for rosacea. 2023 active Not Available Not Available Not Avai lable Prilosec active Not Available Not Avai lable Not Available doxycycline monohydrate 10/08 completed Not Available Not Available Not Available UNLISTED MEDICATION [Migrated medicatio n name:] Diflucan 150 mg tablet:: active Not Available Not Available No t Available Vitals None Recorded Social History None recorded. Functional Status None recorded. Mental Status None recorded. Family History Nothing Reported. Medical History No medical history recorded. Gynecological HistoryNo gynecological history recorded. Obstetrics History GPAL:G 0 P 0 0 0 0 Past Encounters Encounter ID Performer Location Encounter Start Date Encounter Closed Date Diagnosis/Indication Diagnosis SNOMED-CT Code Diagnosis ICD10 Code Diagnosis Note [id number] ERIC Dobson [facility] [address] [place] [address] 10/08/2024 13:49:09 10/08/2024 19:57:25 Rosacea [id number] L71.9 Patient education provided on relevant diagnoses. Provided counseling /treatment recommenda tions as noted below:? Medicatio n(s) prescribed (prescript ion bottle view my provider.) : Provided a temporary refill of doxycyclin e monohydrat e- Advised the patient to follow up with their primary care doctor or dermatolog ist for chronic management ? Reviewed importance of appropriat e monitoring Counseled on the importance of routine follow up with PCP/dermat ologist for the management of chronic conditions . Patient expressed understand ing and agreement with the treatment plan as outlined. Diagnosis and treatment plan discussed with the patient, and they voice agreement and understand ing of the plan. Health Concerns Section Related Observation LastModified by Organization Detai ls LastModified Time None Recorded Concern Status LastModified by Organization Details LastModified Time None Recorded Advance Directives Directive None Recorded Payers Encounter Date Sequence Insurance Name Policy Number Policy Espinal Covered Member ID Espinal Member ID Guarantor Name 10/08/2024 1 [facility] [id number] Sivan Kenneth [id number] Sivan Cooper 10/08/2024 2 *SELF PAY* [id number] Sivan Cooper [id number] Sivan Cooper Notes Date Note Type Note Provider Name and Address Organization Details Recorded Time 10/08/2024 text/html Call connected, patient greeted. Patient name, , telephone number and location verified verbally with the patient. Telemedicine limitations reviewed, answered all questions the patient had about the telehealth interaction, and verbal consent obtained to treat. Clinician attests to being physically located in the following state at the time of visit: [place]. The patient consents to the use of [employer] technology. Previous visits and labs reviewed, if available. Patient at time of visit located in: [place] CC: Refill request for rosacea management HPI: The patient is seeking a refill of doxycycline monohydrate, which they use for rosacea management. The patient reports being unable to access their furnace converter and thus approached the virtual doctor on demand for a refill. Patient last appointment with furnace converter was over 1 year ago. Patient states that she will schedule an appointment with furnace converter to continuet treatment. The patient has not reported any new symptoms or complications related to the condition. The patient confirms plans to schedule an appointment with their healthcare provider for future management. The patient also acknowledges understanding the rationale about continuing care with a chronic provider for safe medication practices. ERIC Dobson [address] [place] [address], [address], [facility] 10/08/2024 14:00:45 OBGyn Episode No OBEpisode recorded.
--- OUTSIDE RECORDS SUMMARY | 2024-12-11 11:41 | XMS_ITS | Clinical Summary ---
Author Organization [facility] Address [address] [place] [address]. [place] [address] [place] [address] Care Team Providers Care Software Applications Specialist Name Role Phone Brian David MD Primary Care Provider [phone] Social History Tobacco Use Types Packs/Day Years Used Date Smoking Tobacco: Never Assessed Comments Unknown Sex and Gender Information Value Date Recorded Sex Assigned at Not on file Legal Sex Female 10:52 AM CDT Gender Identity Not on file Sexual Orientation Not on file Plan of Treatment Health Maintenance Due Date Last Done Comments Cervical Cancer Screening Pa p Smear (Age 30 to 64) Every 3 Years 1979 Colorectal Cancer Screening Colonoscopy (10 Years) 1979 Annual Physical 1982 Hepatitis C 1997 DTaP, Tdap and Td Vaccines ( 1 - Tdap) 1998 Hepatitis B Vaccines (1 of 3 - 19+ 3-dose series) 1998 Cervical Cancer Screening Pa p with HPV Testing (Age 30 to 64) Every 5 Years 2009 Cervical Cancer Screening with HPV 2009 Mammogram Screening 2019 COVID-19 Vaccine (2023-2 5 season) 2024 Influenza Adult (#1) 2024 HPV Vaccines Aged Out No longer eligi ble based on patient's age to complete this topic Meningococcal Vaccine Aged Out No sherif yazmin eligible based on patient's age to complete this topic Pneumococcal Vaccine: Pediat rics (0 to 5 Years) and At-Risk Patients (6 to 64 Years) Aged Out No longer eligible b ased on patient's age to complete this topic RSV Immunizations Under 20 Months Aged Out No longer eligible based on patient's age to complete this topic Insurance [employer] Care Teams Software Applications Specialist Relationship Specialty [place] [address] [place] [address] PCP - General HEMATOLOGY/ONCOLOGY 06/25/20
--- OUTSIDE RECORDS SUMMARY | 2024-12-11 11:41 | XMS_ITS | Clinical Summary ---
Author Organization [facility] Address [address] [place] [address] Phone Care Team Providers Care Clinical Reviewer Name Role Phone Mesfin Lora Primary Care Provider [phone] Allergies Active Allergy Reactions Criticality Noted Date Comments Penicillins Other (see Comments) 03/15/2018 Not sure of Rxn Medications MULTIPLE VITAMIN PO Take 1 Tab by mouth. Active vitamin b-12 (CYANOCOBALAMIN) 100 MCG Tablet Take 1 Tab by mouth daily. Active Cholecalciferol (VITAMIN D3) 1000 units Capsule Take 2 Tabs by mouth daily. Active Misc Natural Products (OCTACOSANOL) 1000-5 MCG-UNIT Tablet Take 1 Tab by mouth daily. Active Doxycycline Monohydrate 100 MG Capsule as needed. 02/22/2019 Active Naproxen Sodium (ALEVE) 220 MG Capsule Take by mouth as needed. Active Active Problems Problem Noted Date Diagnosed Date Hereditary hemochromatosis 03/10/2019 Family History Medical History Relation Name Comments Cancer Father lung Cancer Paternal Grandfather stomach Relation Name Status Comments Father Paternal Grandfather Social History Tobacco Use Types Packs/Day Years Used Date Smoking Tobacco: Former Cigarettes 1 15 0 02/24/1997 - 02/25/2012 Smokeless Tobacco: Never Alcohol Use Standard Drinks/Week Comments Yes 0 (1 standard drink = 0.6 oz pur e alcohol) AUDIT-C Answer Date Recorded Frequency of Alcohol Consumption Monthly or less 02/24/2019 Average Number of Drinks Not on file 019 Frequency of Binge Drinking Not on file 06/2019 PHQ-2 Answer Date Recorded PHQ-2 Score 0 08/05/2019 Comments Unknown Sex and Gender Information Value Date Recorded Sex Assigned at Not on file Legal Sex Female 10:58 AM CDT Gender Identity Not on file Sexual Orientation Not on file Last Filed Vital Signs Vital Sign Reading Time Taken Comments Blood Pressure 110/62 02/24/2019 8:14 AM CDT Pulse 60 02/24/2019 8:14 AM CDT Temperature 36.8 ??C (98.2 ??F) 02/24/2019 8:14 AM CD T Respiratory Rate 16 02/24/2019 8:14 AM CDT Oxygen Saturation 96% 02/24/2019 8:14 AM CDT Inhaled Oxygen Concentration - - Weight 68 kg (150 lb) 02/24/2019 8:14 AM CDT Height 172.7 cm (5' 8 ) 02/24/2019 8:14 AM CDT Body Mass Index 22.81 02/24/2019 8:14 AM CDT Plan of Treatment Health Maintenance Due Date Last Done Comments Hepatitis C Virus (HCV) Screening 1979 TdaP Immunization 1979 Hepatitis B Immunization (1 of 3 - 19+ 3-dose series) 1998 Pap Smear 2000 Cervical Cancer Screening (CCS) 2009 HPV/Cotest 2009 Discussion re Starting/Frequency of Mammograms 2019 Colonoscopy 2024 Colorectal Cancer Screening 2024 Influenza Immunization (#1) 2024 SARS-COV-2 Immunization ( season) 2024 02/05/2021, 01/08/2021 Respiratory Syncytial Virus (RSV) Immunization (Adult) (1 - 1-dose 75+ series) 2054 Meningococcal Immunization (ACWY) Aged Out No longer eligible b ased on patient's age to complete this topic Pneumococcal Immunization Combined Aged Out No longer eligible b ased on patient's age to complete this topic Rotavirus Immunization Aged Out No lo nger eligible based on patient's age to complete this topic Insurance [place]ICAID [place] Care Teams Clinical Reviewer Relationship Specialty Start Date End Date Mesfin Lora [address] [place] [address] PCP - General Family Medicine 02/06/19
--- OUTSIDE RECORDS SUMMARY | 2024-12-11 11:42 | XMS_ITS | Continuity of Care Document ---
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 Name Role Phone Mesfin Lora MD Unavailable Unavailable Allergies, Adverse Reactions, Alerts Substance Reaction Status Criticality PENICILLIN Active No Information Procedures Procedure Date PREV VISIT, EST, AGE 40-64 OFFICE/OUTPATIENT VISIT, EST OFFICE/OUTPATIENT VISIT, EST PREV VISIT, EST, AGE 40-64 OFFICE/OUTPATIENT VISIT, EST OFFICE/OUTPATIENT VISIT, EST OFFICE/OUTPATIENT VISIT, EST OFFICE/OUTPATIENT VISIT, EST PREV VISIT, EST, AGE 40-64 OFFICE/OUTPATIENT VISIT, EST OFFICE/OUTPATIENT VISIT, EST OFFICE/OUTPATIENT VISIT, EST OFFICE/OUTPATIENT VISIT, EST OFFICE/OUTPATIENT VISIT, EST OFFICE/OUTPATIENT VISIT, EST OFFICE/OUTPATIENT VISIT, EST PREV VISIT, EST, AGE 40-64 OFFICE/OUTPATIENT VISIT, EST OFFICE/OUTPATIENT VISIT, EST OFFICE/OUTPATIENT VISIT, EST OFFICE/OUTPATIENT VISIT, EST PREV VISIT, EST, AGE 18-39 OFFICE/OUTPATIENT VISIT, EST OFFICE/OUTPATIENT VISIT, EST OFFICE/OUTPATIENT VISIT, EST OFFICE/OUTPATIENT VISIT, EST PREV VISIT, EST, AGE 18-39 OFFICE/OUTPATIENT VISIT, EST OFFICE/OUTPATIENT VISIT, EST OFFICE/OUTPATIENT VISIT, EST Advance Directives Directive Yes / No Effective Date File Name No Information Encounters Encounter Description Practice Location Reason(s) For Visit Diagnoses Date Provider Providers Copied on Encounter [facility], [address], [place], [place], [address], [place] tel:[phone] [facility] Medicine No Information 4 Giudo Duarte [address], [place], [place], [address] , [place]. tel:[phone] PREV VISIT, EST, AGE 40-64 [facility], [address], [place], [place], [address], [place] tel:[phone] [facility] Medicine physical (chief complaint) Encounter for general adult medical examination without abnormal findings 4 Guido Duarte [address], [place], [place], [address] , [place]. tel:[phone] OFFICE/OUTPA TIENT VISIT, EST [facility], [address], [place], [place], [address], [place] tel:[phone] [facility] Medicine work (chief complaint) RosaceaHypothyroidi sm 3 Guido Duarte [address], [place], [place], [address] , [place]. tel:[phone] OFFICE/OUTPA TIENT VISIT, EST [facility], [address], [place], [place], [address], [place] tel:[phone] [facility] Medicine thyroid1 (chief complaint) hip pain1 (chief complaint) rosacea1 (chief complaint) GERD1 (chief complaint) RosaceaGERD w/o esophagitisPain in right hipHypothyroidism Apr-2 3 Guido Duarte [address], [place], [place], [address] , [place]. tel:[phone] PREV VISIT, EST, AGE 40-64 [facility], [address], [place], [place], [address], [place] tel:[phone] [facility] Physical (chief complaint) Encounter for general adult medical examination without abnormal findings 2 Guido Toure. [address], [place], [place], [address] , [place]. tel:[phone] OFFICE/OUTPA TIENT VISIT, [facility], [place], [address], [place], [place], [address], [place] tel:[phone] [facility] thyroid1 (chief complaint) yeast1 (chief complaint) Candidiasis of vulva and vaginaHypothyroidis m 2 Guido Mesfin. [address], [place], [place], [address] , [place]. tel:[phone] OFFICE/OUTPA TIENT VISIT, [facility], [place], [address], [place], [place], [address], [place] tel:[phone] [facility] hematuria1 (chief complaint) hypothyroi dsm1 (chief complaint) EKG (chief complaint) HypothyroidismHemat uriaAbnormal electrocardiogram [ECG] [EKG]Sleep disorder, unspecified 1 Guido Toure. [address], [place], [place], [address] , [place]. tel:[phone] OFFICE/OUTPA TIENT VISIT, EST [facility], [address], [place], [place], [address], [place] tel:[phone] [facility] liver lesion1 (chief complaint) hematuria1 (chief complaint) thyroid1 (chief complaint) low D (chief complaint) EKG (chief complaint) Cyst of liverHematuriaHypot hyroidismAbnormal EKGVitamin D deficiency, unspecified 1 Guido Toure. [address], [place], [place], [address] , [place]. tel:[phone] OFFICE/OUTPA TIENT VISIT, [facility], [place], [address], [place], [place], [address], [place] tel:[phone] [facility] GERD1 (chief complaint) peritonsil lar abscess1 (chief complaint) vaginal yeast1 (chief complaint) abd pain1 (chief complaint) Abdominal painCyst of liverAbnormal electrocardiogram [ECG] [EKG]GERD w/o esophagitisCandidia sis of vulva and vagina 1 Guido Duarte [address], [place], [place], [address] , [place]. tel:[phone] PREV VISIT, EST, AGE 40-64 [facility], [address], [place], [place], [address], [place] tel:[phone] [facility] physical (chief complaint) Encounter for general adult medical examination without abnormal findings 1 Guido Duarte [address], [place], [place], [address] , [place]. tel:[phone] OFFICE/OUTPA TIENT VISIT, [facility], [place], [address], [place], [place], [address], [place] tel:[phone] [facility] abd pain1 (chief complaint) Abdominal pain 0 Guido Duarte [address], [place], [place], [address] , [place]. [phone] OFFICE/OUTPA TIENT VISIT, [facility], [place], [address], [place], [place], [address], [place] tel:[phone] [facility] abd pain1 (chief complaint) EKG (chief complaint) Liver lesion1 (chief complaint) Abdominal painAbnormal electrocardiogram [ECG] [EKG]Cyst of liver 0 Guido Toure. [address], [place], [place], [address] , [place]. tel:[phone] OFFICE/OUTPA TIENT VISIT, [facility], [place], [address], [place], [place], [address], [place] tel:[phone] [facility] abdominal pain1 (chief complaint) RVH (chief complaint) CardiomegalyAbdomin al pain March- 0 Guido Duarte [address], [place], [place], [address] , [place]. tel:[phone] OFFICE/OUTPA TIENT VISIT, [facility], [place], [address], [place], [place], [address], [place] [phone] [facility] RVH (chief complaint) abd pain1 (chief complaint) TB (chief complaint) CardiomegalyAbdomin al painEncounter for screening for respiratory TB 0 Guido Toure. [address], [place], [place], [address] , [place]. tel:[phone] OFFICE/OUTPA TIENT VISIT, [facility], [place], [address] [place] [address], [place] tel:[phone] [facility] abdominal pain1 (chief complaint) liver lesion1 (chief complaint) K (chief complaint) Cyst of liverAbdominal painHyperkalemia Feb- 0 Guido Duarte [address], [place], [place], [address] , [place]. tel:[phone] OFFICE/OUTPA TIENT VISIT, [facility], [place], [address] [place], [address], [place] tel:[phone] [facility] abd pain1 (chief complaint) shoulder pain1 (chief complaint) Abdominal painLumbagoPain in right shoulder Mar-3 0 Guido Toure. [address], [place], [place], [address] , [place]. tel:[phone] OFFICE/OUTPA TIENT VISIT, [facility], [place], [address], [place], [address], [place] tel:[phone] [facility] hemochroma tosis1 (chief complaint) shoulder pain1 (chief complaint) ventral hernia1 (chief complaint) Pain in right shoulderVentral herniaDisorder of iron metabolism, unspecified Fe-0 0 Guido Toure. [address], [place], [place], [address] , [place]. [phone] PREV VISIT, EST, AGE 40-64 [facility], [address], [place], [place], [address], [place] [phone] [facility] physical (chief complaint) Encntr for general adult medical exam w/o abnormal findings 9 Guido Toure. [address], [place], [address] , [place]. tel:[phone] Referring Provider: Yuliet [address], [place], [place], [address]. tel:[phone] OFFICE/OUTPA TIENT VISIT, [facility], [place], [address], [place], [place], [address], [place] [phone] [facility] foot arch1 (chief complaint) hernia1 (chief complaint) Pain in right footVentral hernia 9 Guido Toure. [address], [place], [place], [address] , [place]. tel:[phone] OFFICE/OUTPA TIENT VISIT, [facility], [place], [address], [place], [address], [place] [phone] [facility] back pain1 (chief complaint) Tdap1 (chief complaint) abdominal nodule1 (chief complaint) Lumbago with sciatica, left sideLipomaOther specified counseling 9 Guido Toure. [address], [place], [address] , [place]. [phone] Referring Provider: Yuliet [address], [place], [place], [address]. tel:[phone] OFFICE/OUTPA TIENT VISIT, [facility], [place], [address], [place], [address], [place] tel:[phone] [facility] iron1 (chief complaint) Disorder of iron metabolism, unspecifiedNail disorder, unspecified Feb-2 9 Guido Duarte [address], [place], [place], [address] , [place]. [phone] OFFICE/OUTPA TIENT VISIT, EST [facility], [address], [place], [place], [address], [place] [phone] [facility] brittle nails (chief complaint) gasy (chief complaint) Nail disorder, unspecifiedDisorder of iron metabolism, unspecifiedMixed irritable bowel syndrome 9 Guido Toure. [address], [place], [place], [address] , [place]. [phone] Referring Provider: Yuliet Kennedy [address], [place], [place], [address]. tel:[phone] PREV VISIT, EST, AGE 18-39 [facility], [address], [place], [place], [address], [place] [phone] [facility] PHysical (chief complaint) Encounter for general adult medical exam w abnormal findingsRosaceaNail disorder, unspecifiedPain in left foot 8 Guido Duarte [address], [place], [place], [address] , [place]. [phone] Referring Provider: Yuliet Kennedy [address], [place], [place], [address]. tel:[phone] OFFICE/OUTPA TIENT VISIT, EST [facility], [address], [place], [address], [place] [phone] [facility] knee pain1 (chief complaint) rosacea1 (chief complaint) vaginal yeast1 (chief complaint) RosaceaChondromalac ia patellae, right kneeCandidiasis of vulva and vagina 8 Guido Duarte [address], [place], [address] , [place]. [phone] Referring Provider: Mesfin Lora, [address], [place], [place], [address]. tel:[phone] OFFICE/OUTPA TIENT VISIT, EST [facility], [address], [place], [place], [address], [place] tel:[phone] [facility] acne1 (chief complaint) rosacea (chief complaint) AcneRosaceaCandidia sis of vulva and vagina 8 Guido Toure. [address], [place], [place], [address] , [place]. [phone] OFFICE/OUTPA TIENT VISIT, EST [facility], [address], [place], [place], [address], [place] tel:[phone] [facility] rash1 (chief complaint) cheek (chief complaint) AcneRosacea 8 Guido Toure. [address], [place], [place], [address] , [place]. tel:[phone] Referring Provider: Mesfin Lora [address], [place], [place], [address]. tel:[phone] PREV VISIT, EST, AGE 18-39 [facility], [address], [place], [address], [place] tel:[phone] [facility] Physical (chief complaint) Encntr for general adult medical exam w/o abnormal findings 7 Guido Toure. [address], [place], [address] , [place]. tel:[phone] Referring Provider: Mesfin Lora [address], [place], [place], [address]. tel:[phone] OFFICE/OUTPA TIENT VISIT, EST [facility], [address], [place], [place], [address], [place] tel:[phone] [facility] UTI1 (chief complaint) fatigue1 (chief complaint) HematuriaFatigueGER D w/o esophagitis 7 Guido Toure. [address], [place], [place], [address] , [place]. tel:[phone] Referring Provider: Yuliet Kennedy [address], [place], [place], [address]. tel:[phone] OFFICE/OUTPA TIENT VISIT, [facility], [place], [address] [place], [address], tel:[phone] [facility] sleep1 (chief complaint) thyroid (chief complaint) throat issue (chief complaint) Sleep disorderDisorder of thyroid, unspecifiedFatigue Guido Toure. [address], [address] , [place]. tel:[phone] Referring Provider: Yuliet Kennedy [address] [facility] [address], [place], [place], [address]. tel:[phone] OFFICE/OUTPA TIENT VISIT, [facility], [place], [address] [place], [address], [place] tel:[phone] [facility] sick (chief complaint) thyroid (chief complaint) irregular period (chief complaint) Acute upper respiratory infection, unspecifiedIrregula r periodDisorder of thyroid, unspecified 7 Guido Toure. [address], [place], [place], [address] , [place]. [phone] Referring Provider: Yuliet Kennedy [facility] [place], [address]. tel:[phone] Family History Family Member Type Diagnosis Age At Onset Father Problem (finding) lung CA Mother Problem crohn disease and RA Sister Problem (finding) nohodgin lymphoma Mother Problem aortic valve stenosis Mother Problem (finding) Alive and well Payers Payer name Insurance type Covered democrat ID Authoriza tion(s) No Information Social History Type Description Quantity Date Captured Comments Sex Female Smoking Status No Information Chief Complaint And Reason For Visit No Information Plan Of Treatment Date Type Action Status Referral Referred To: Greta Turner [address] [facility] [address] [place] [address], [id number] Ordered: Referrals: Greta Turner. Evaluate and treat ordered Referral Ordered: Gene Valero -Allopathic & Osteopathic Physicians : Orthopaedic Surgery (related to Pain in right hip) ordered Referral Ordered: Physical Therapy (related to Pain in right hip) ordered Referral Ordered: AP PELVIS AND BILATERAL HIPS XRAY ordered Referral Ordered: US THYROID ordered Referral Referred To: Ras Rojas [address], [phone] Ordered: Referrals: Ras Rojas. Evaluate and treat ordered Referral Ordered: US EXAM, ABDOM, COMPLETE ordered Referral Ordered: EKG for initial prevent exam ordered Referral Ordered: Teddy Delaney -[facility] Phys[facility] : Internal Medicine : Gastroenterology (related to Abdominal pain) ordered Referral Referred To: Teddy Delaney [address] [facility] [address] [place], [place], [phone] Ordered: Referrals: Allopathic & Osteopathic Physicians : Internal Medicine : Gastroenterology. Teddy Delaney. Evaluate and treat ordered Referral Ordered: DOPPLER ECHO EXAM, HEART ordered Referral Ordered: NUC MED HIDA (HEPATOBILIARY) SCAN ordered Referral Ordered: US EXAM OF ABDOMEN, LIMITED, GALLBLADDER ordered Referral Ordered: Gene Valero -[facility]opathic Physicians : Orthopaedic Surgery (related to Pain in right shoulder) ordered Referral Ordered: US EXAM, EXTREMITY ordered Referral Ordered: DAI SINGLETON -Podiatric Medicine & Surgery Service Providers : Flap Presser (related to Pain in right foot) ordered Referral Referred To: DAI SINGLETON [facility] [place] [place],[address] [place], [place], [phone] Ordered: Referrals: Podiatric Medicine & Surgery Service Providers : Flap Presser. DAI SINGLETON. Evaluate and treat ordered Referral Ordered: Physical Therapy (related to Lumbago with sciatica, left side) ordered Referral Ordered: LUMBAR XRAY AP AND LAT ONLY ordered Referral Ordered: Hematology (related to Disorder of iron metabolism, unspecified) ordered Referral Ordered: Referrals: Hematology. Evaluate and treat ordered Referral Ordered: CHEST X-RAY PA/LAT TWO-VIEWS ordered Referral Ordered: Gene Valero -[facility]opathic Physicians : Orthopaedic Surgery (related to Chondromalacia patellae, right knee) ordered Referral Ordered: Physical Therapy (related to Chondromalacia patellae, right knee) ordered Referral Referred To: Gene Valero [facility] [place], [place] [id number] Ordered: Referrals: Allopathic & Osteopathic Physicians : Orthopaedic Surgery. Gene Valero. Evaluate and treat ordered Referral Referred To: Physical Therapy Ordered: Referrals: Physical Therapy. Evaluate and treat ordered Referral Ordered: Edwige Iyer (related to Acne) ordered Referral Ordered: Edwige Iyer (related to Rosacea) ordered Referral Referred To: Edwige Iyer [address] [facility]
[address] Floor [place], [place] [phone] Ordered: Referrals: Edwige Iyer. Evaluate and treat ordered Referral Ordered: Otolaryngology (related to Sleep disorder) ordered Referral Ordered: Referrals: Otolaryngology. Evaluate and treat ordered Referral Ordered: SLEEP STUDY, ATTENDED ordered History Of Present Illness Encounter Date Complaint History Of Prese nt Illness physical Pt needs annual physical. Pt overall feels fine Pt denies any joint pain Pt has chronic facial rash .Pt was evaluated by dermatology and was told that she has rosacea. Pt denies any worsening symptoms. 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 GERD1 Pt no longer has any GERD Pt is off pepcid. Pt denies any abd pain rosacea1 Pt has rosacea P t is seeing dermatology. Pt takes doxycycline PRN only. hip pain1 Pt has persisten t right hip pain x 6 months Pt c/o throbbing pain. Pt denies any redness warmth or swelling Pt denies any back pain <pt denies any sciatica Pt mostly has right hip pain with weight bearing or movement Pt states that she notices mild right hip pain at night but only with certain movement pt has 5/10 pain on average. Pt denies any radiculopathy Pt denies any injury. Pt denies any left hip pain Pt has not taken any medication or done anything for the hip pain. thyroid1 Pt has history o f low thyroid Pt denies any dysphagia or neck pain. Pr had normal thyroid ultrasound .TPO and TSI ok Physical Pt needs annual physical Pt has history of intermittent low thyroid but her last TSH was ok Pt denies any dysphagia or neck pain Pt takes doxycycline daily for rosacea .Pt sees dermatology Pt otherwise feels well .Pt denies any other complaints yeast1 Pt c/o whitish v aginal discharge with mild itching for two days. Pt denies any vaginal bleeding or pelvic pain or urinary symptoms Pt feels she has typical vaginal yeast infection. Pt denies any risk for STDs thyroid1 Pt has history o f borderline low thyroid Pt denies any dysphagia or neck pain Repeat TSH is ok. Pt has not done thyroid ultrasound yet Pt denies any weight gain or fatigue hematuria1 Pt has history o f hematuria. pt denies any UTi symptoms Pt had negative UA hypothyroidsm1 pt has recurrent low thyroid. Her TPO and TSI are negative .Pt denies any fatigue, weight gain. EKG Pt has abnormal EKG, which showed sinus bradycardia and incomplete RBBB. Previous EKG showed ? cardiomyopathy but cardiac echo was denied by insurance. Pt denies any chest pain, palpitation or sob. pt c/o waking up in the middle of the night gasping for air sometimes. Pt saw cardiology and was cleared of any cardiac issue. She was told to get a home sleep study done and is waiting to be set up by cardiology. Pt had negative in lab sleep study in the past. Pt states that she feels that she needs to spit stuff out in the middle of the night. Pt denies any GERD. thyroid1 Pt has low thyro id Pt denies any dysphagia or neck pain Pt denies any fatigue, weight gain, constipation, edema, etc. low D Pt has borderlin e low D EKG Pt has abnormal EKG, which showed sinus bradycardia and incomplete RBBB. Previous EKG showed ? cardiomyopathy but cardiac echo was denied by insurance. Pt denies any chest pain, palpitation or sob liver lesion1 Pt has benign li waqas lesion Pt denies any abd pain or jaundice. Pt denies any alcohol usage. Pt had repeat liver ultrasound which showed benign lesion hematuria1 Pt has mild carlota turia. Pt denies any urinary symptoms or flank pain Pt has IUD so she does not have regular period. Pt does spot sometimes GERD1 Pt has intermitt ent GERD and she sometimes wakes up at night with difficulty breathing.. Pt did not respond to omeprazole.. Pt states that she was started on pepcid from ER which really helped her overall stomach feeling and GERD and she sleeps much better without any difficulty with breathing at night Pt denies any snoring Pt had negative sleep study. Pt states that her stomach feels better settled with pepcid. peritonsillar abscess1 Pt has ri ght side peritonsillar abscess. Pt is s/p ENT drainage and she finished abx and she is doing ok now Pt denies any sore throat or any dysphagia or drooling vaginal yeast1 Pt c/o vaginal y east infection currently for several days Pt notices whitish vaginal discharge with mild itching Pt denies any urinary symptoms. Pt denies any pelvic pain or flank pain. Pt failed OTC anti fungal cream. Pt wants diflucan abd pain1 Pt had intermitt ent right upper quadrant abd pain last year post ventral hernia surgery with essentially negative work up. Pt did see GI who told her she may have visceral hypersensitivity and started on desipramine but she never tried it. Pt is afraid of side effects. Pt states that the abd pain resoled . physical Pt needs annual physical Pt has history of benign liver lesion pt denies any abd pain or jaundice. Pt did [facility] regarding right upper quadrant pain and was told due to post cholecystectomy nerve pain and prescribed her some meds but she does not know the name but she never took it since her abd pain kind resolved. pt denies any nausea, vomiting .GERD, etc. Pt recently went to ER due to peritonsillar abscess on right side. Pt is on clindamycin and oral steroid and she did see ENT today with drainage of the abscess on right side Pt denies any dysphagia Pt has mild sore throat which is much better Pt denies any stiff neck, fever, headache ,rash, dysphagia or drooling, etc .Pt was tested negative for strep. pt wants lab work. Pt overall doing well abd pain1 Pt has chronic r ight upper quadrant abd pain ,Pt is s/p cholecystectomy. Pt denies any GERD ,Pt failed PPI. Pt denies any nausea, vomiting, diarrhea Pt had benign liver ultrasound. Pt has vani with [facility] next week. Pt wants norco refilled as she still has intermittent abd pain and only norco seems to help. Pt denies any acute abdominal pain Liver lesion1 Pt has liver les ion, most likely hemangioma vs cyst. EKG Pt had abnormal EKG which showed ? RVH and also VCD. Pt denies any chest pain or sob abd pain1 Pt c/o persisten t sharp right upper quadrant pain for 3 months. Pt states that the mild discomfort constant and but occasionally she has rather severe sharp pain randomly usually triggered by standing up from sitting position. Pt states that pain is very sharp. Pt denies any postprandial pain. Pt denies any nausea, vomiting, diarrhea. Pt denies any GERD Pt has been taking omeprazole for two months without any improvement. Pt had negative ultrasound and HIDA and upper GI. Pt had ventral hernia surgery Oct. Pt is wondering if the mesh may cause pain. Pt denies any fever Pt states that norco does help relieve partial pain. RVH Pt had EKG done recently which showed possible RVH Pt is very physically active Pt denies any chest pain or sob. cardiac echo was denied by insurance. abdominal pain1 Pt has intermitt ent right upper quadrant abdominal pain for the past several weeks. Pt c/o sharp pain right upper quadrant area, worse with palpation. Pt denies any nausea, vomiting. Pt denies any diarrhea. Pt denies any relationship to food .pt is on omeprazole for the past several weeks Pt denies any diaphoresis, . Pt denies any fever. Pt denies any calf pain. Pt notices some sharp pain around that spot when she takes deep breath sometimes, pt denies any weight loss. Pt denies any sob or fever RVH Pt had EKG done at ER which suggested possible RVH vs VSD .Pt does not have murmur pt denies any chest kenan nor sob Pt is very physically active and she denies any chest pain or palpitation with running or exercise .Pt does not have any family history of above. Mom just found out she has aortic valve stenosis abd pain1 Pt has intermitt ent right upper quadrant pain, which is improving with omeprazole pt denies any acute pain Pt denies any nausea, vomiting, diarrhea ,blood in stool, etc Pt denies any GERD Pt has been taking omeprazole for the past 4 weeks and she notices 75 % improvement of her RUQ pain Pt denies any pain with food. Pt denies any nausea .Pt has not done HIDA yet TB Pt needs TB scre ening for work Pt denies any night sweat or weight loss or fever or chill or positive contact or any travel or any cough abdominal pain1 Patient has vagu e right upper quadrant mid epigastric pain for almost 1 months. Patient denies any acute pain. Patient denies any nausea vomiting. Patient denies any diarrhea. Patient denies any blood in his stool. Patient denies any loss of appetite. Upper GI is okay. Ultrasound essentially normal. Patient is not sure if she has more pain after food. Patient denies any trigger factor. liver lesion1 Patient has a in cidental finding of a liver lesion on CT and scan and ultrasound. Patient denies any history of previous finding. Patient does not have any known malignancy. K Patient has mild ly elevated potassium. The patient denies any chest pain or headache. shoulder pain1 Pt has chronic r ight shoulder pain Pt has not done ultrasound yet pt has not seen ortho yet. Pt denies any worsening pain abd pain1 Pt c/o right upp er quadrant abdominal pain which is constant and sharp throughout the day for one week Pt denies any nausea, vomiting, diarrhea ,Pt denies any injury Pt denies any sob. Pt denies any chest pain . Pt states that pushing on rib does not hurt. pt states that pushing on right upper quadrant does not hurt Pt feels some discomfort when she twist her upper body. Pt denies any GERD. Pt states that positional change will make the pain worse Pt denies any relationship to food. Pt also notices some pain between shoulder blader on the center started the same time with the right upper quadrant area Pt states that the pain seems worse in the morning. pt does not know what causes the pain or alleviating the pain. Pt denies any GERD. Pt denies any sob or calf pain Pt denies any fever, coughing, recent travel . Pt denies any midepigastric pain or radiating of pain to her midback Pt denies waking up at night with pain. pt denies any chest burdick or cough or sob. ventral hernia1 pt had ventral h ernia repair 6 weeks ago. Pt notice a small tender nodule under the wound above her umbilicus since last week Pt denies any drainage Pt denies any erythema or warmth. Pt denies any wound dehiscence. pt did have a mesh placed. shoulder pain1 Pt c/o right lat eral shoulder pain post hernia surgery since 6 weeks ago. Pt did not have any shoulder pain until she wakes up from surgery Pt c/o dull/sharp pain only when she tries to lift her right shoulder like brushing her teeth or combing her hair or lifting something pt denies any radiculopathy or any neck pain pt denies any right arm weakness or any paresthesia. Pt denies any injury. hemochromatosis1 Pt has persiste nt low iron binding capacity and high iron saturation. Pt went to see oil plant operator and was that she is hemochromatosis carrier. Pt denies blood loss. physical Pt needs annual physical pt has stress incontinence and she just had bladder sling surgery and she is doing ok. Pt is able to urinate ok Pt is doing pelvic floor PT. Pt wants to have her vitamin D checked. Pt is afraid of bone loss. Pt takes calcium and vitamin D supplement. Pt denies any family history of osteoporosis Pt is hemochromatosis carrier. Pt is seeing hematology. Her iron saturation is slightly high. Pt denies any other complaints hernia1 Pt has a small v entral hernia Pt denies any abd pain Pt will have surgery done soon Pt also has stress incontinence Pt will do surgery soon for pelvic sling foot arch1 Pt c/o some inte rmittent pain and tenderness arch of right foot for several months Pt denies any injury pt notices occasional right arch cramp pt denies any injury Pt denies any heel pain or any foot numbness or tingling. Pt denies any flat arch. Pt denies any injury Pt denies any numbness or tingling back pain1 Pt c/o sharp con stant left SI area pain for 3 months with left sciatica to left posterior thigh. pt denies any loss of bladder control. pt denies any numbness left leg. Pt denies any injury. Pt states that the pain is not bad enough for invasive testing yet. Pt states that standing and walking seems to make the pain worse. Tdap1 Pt has had Tdap for over 10 years. Pt needs Tdap abdominal nodule1 Pt notices sli ghtly inconsistence around left side of abdomen for 6 months. Pt denies any pain Pt denies any size change. iron1 Pt has some brit tle nails and she was found to have slightly iron profile abnormality. Pt has low transferrin, low binding capacity and high iron saturation .Pt denies any sob Pt had normal chest x ray. Pt also does NOt have sleep apnea gasy Pt c/o feeling g assy, abdominal bloating, mild constipation for several weeks. Pt denies any abdominal pain or any nausea, vomiting. Pt denies any diarrhea or any blood in stool. Pt has fairly normal BM every other day. Pt denies any hard stool brittle nails Pt has brittle n ails with some lines and dent. Pt denies any sob. Pt denies any coughing Pt does not smoke. Pt had lab done which was essentially normal except for borderline high iron saturation. Her total iron and ferritin level are normal PHysical PT needs annual physical Pt has ? rosacea. Pt takes doxycycline and metrogel daily. Pt sees datawarehouse developer. Pt states that the rash is not going away. Pt notices itching and pain sometimes. Pt is seeing ortho and her right knee is doing ok. pt is doing PT. Pt notices brittle and also dent and some lines on both nails for 3 months. Pt notices left foot arch cramp last week which went away after 10 mins. Pt denies any calf pain. Pt denies any recent travel or bedrest. Pt denies any chest pain or sob. Pt actually went to ER for the foot cramp and was given some flexeril. Pt no longer has foot pain or cramp. Pt denies any other complaints vaginal yeast1 Pt took diflucan and her vaginal yeast infection resolve/d. Pt denies any vaginal discharge rosacea1 Pt has rosacea. pt stopped doxycycline per dermatology due to recurrent yeast infection. Pt is on metrogel again. knee pain1 Pt has chronic r ight knee pain. Pt denies any injury. Pt c/o dull achy and swelling right knee since September Pt payed a lot of sports a a child. Pt did see ortho who did MRi but told her nothing is wrong except for arthritis Pt was started on mobic but she notices some water retention around her leg so she stopped the mobic and swelling resolved Pt denies any chest pain or sob rosacea Pt has facial ro sacea. Pt tried metronidazole cream on face but she notices more outbreak of small bumps while on metronidazole cream., Pt states that she tried the same cream several years ago and she notices bump on face with the cream. Pt tested negative for MICHEL acne1 Pt has some acne like lesion on upper back for several months. Pt states that the doxycyline seems controlling with outbreak of new skin lesion on upper back. Pt states that she has not noticed any new lesion. pt has been having frequent vaginal yeast infection while on doxycycline. Pt tested negative for testosterone level. elevation rash1 Pt c/o itchy jeanette h/bump on upper back and back of shoulder for two months Pt staets that the bumps are there all the time. Pt denies any sick contact Pt denies any rash rest of body. Pt states that it is not related to food or anything else Pt denies any trouble with breathing or swallowing. pt deneis any pain or any drainage cheek Pt also has reos aceolive. pt was treated with cream to cheek area several years ago which made the rash worse. Pt thinks that she may have had metrogel. Physical Pt needs annual physical. Pt currently feels well. Pt denies any abdominal pain, flank pain, fever, chill Pt denies any urinary symptoms. Pt had normal UA recently Pt deneis any other complaints. Pt needs work physical UTI1 Pt c/o urinary b urning and frequency and pelvic pressure and pain for 4 days. Pt denies any flank pain. Pt did have brief period of low grade temp and chills in the ER which resolved. Pt denies any nausea, vomiting. Pt denies any diarrhea. Pt had UA done which showed tons of blood. Pt also has wbc but she does not any bacteria in her urine culture. Pt took 3 days of bactrim and her symptoms are 90 % better. 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 Pt states that she feels that her throat somtimes closes at night Pt did not have sleep apnea. Pt seen ENT and had scope which showe ? mild reflux per patient. Pt states that symptoms only occurs at night. Pt denies any daily GERD symptoms. Pt denies any abd pain sleep1 Pt states that s he has been waking up at night gasping for air on and off for 10 years. Pt states that she notices more frequent symptoms during last 3 months. Pt denies any snoring. Her keeps waking her up at night due to her gasping for air. Pt does not stop breathing. Pt feels very fatigue in the morning. Pt also feels tired throughout the day. Pt denies any GERD. Pt deneis any heartburn. Pt denies any abnormal limb movement. Pt denies any dysphagia. Pt deneis any sob. thyroid Pt has benign TF T. throat issue Pt states that s he notices recnetly that occassionally her throat closing in and she could not breath during the day, which only last 1-2 seconds. Pt states that it occurs 5-6 times during last few weeks. Pt never had that feeling before. sick Pt c/o ear pain, sinus symptoms for the past two week on and off. pt states that her son was sick also. Pt states that she still has left ear pain and she canot hear too well from left ear. Pt was given Zpak which did not help. Pt had to take another round of abx which helped thyroid Pt has ? thyroid disorder. Pt states that she had thyroid lab which was slighlty borderline low but she was not replaced. Pt did talk to her physician who recommended no medication several months ago. Pt not sure whether she checked her TPo yet. irregular period Pt has irregula r period. Pt has IUd placed. Pt is working with plant guard regarding the period issue. Pt denies any . Instructions Date Instruction Additional Infor mation Weight gain advised Related to B kenny mass index (BMI) 23.0-23.9, adult Perform monthly self breast examinations. Related to Encntr for general adult medical exam w/o abnormal findings Increase activity. Related to En cntr for general adult medical exam w/o abnormal findings Weight gain advised Related to B kenny mass index (BMI) 22.0-22.9, adult Increase physical activity Relat ed to Pain in right foot Increase physical activity Relat ed to Lumbago with sciatica, left side Increase physical activity Relat ed to Disorder of iron metabolism, unspecified Increase physical activity Relat ed to Nail disorder, unspecified Increase physical activity Relat ed to Encounter for general adult medical exam w abnormal findings Increase physical activity Relat ed to Rosacea Prescribed Activity and Exercise Education Related to Dietary Surveillance and Counseling Prescribed Diet Educ ation/Lifestyle Education Regarding Diet Related to Dietary Surveillance and Counseling Increase physical activity Relat ed to Acne Increase physical activity Relat ed to Acne Prescribed Diet Educ ation/Lifestyle Education Regarding Diet Related to Dietary Surveillance and Counseling Prescribed Activity and Exercise Education Related to Dietary Surveillance and Counseling Increase activity. Related to En cntr for general adult medical exam w/o abnormal findings Perform monthly self breast examinations. Related to Encntr for general adult medical exam w/o abnormal findings Diet and exercise Related to Hem aturia Assessments Type Assessment Date No Information
== END 2024-12-08 07:55 | disposition home or self-care (01) ==
LOC: ANHIMG 07:57
PROVIDERS: PCP Family Medicine; Visit Provider Obstetrics & Gynecology
DX: Z12.31 Encounter for screening mammogram for malignant neoplasm of breast (principal)
CPT/HCPCS: 77063; 77067